=== PATIENT | female | born 1975 | race Caucasian/White ===

== ENCOUNTER 2019-07-02 17:57 | Inpatient (IN) | payer SELFPAY ==
[~2019-07-02] VITALS: Ht 162.6 cm; Wt 120.7 kg
[2019-07-02] VITALS (9 sets, daily range): BP systolic 77–134; BP diastolic 29–86
--- NOTE | ~2019-07-02 | HEMODYNAMI ---
PATIENT:THELMA CARLSON MEDICAL RECORD: [id number] : 75 LOCATION:D. D.2106 ADMISSION DATE: 07/02/19 Generatedon:07/16/201916:48 Patient name: THELMA CARLSON Patient #: [id number] SSN: D OB: 1975 Date of study: 07/16/2019 Page: Of Hemodynamic Procedure Report Patient Data Patient Demographics Procedure consent was obtained First Name: THELMA Gender: Female Last Name: ALDO : 1975 Patient #: [id number] Age: 43 year(s) Race: Unknown Additional ID: [id number] Contact details Address: [address] [place] [address] rd State: [place] City: [place] Zip code: [address] Past Medical History Allergies Allergen Reaction Date Comments Reported Morphine 07/16/2019 Other allergy 07/16/2019 amitriptyline Admission Admission Data Admission Date: 07/02/2019 Admission Time: 19:47 Room #: D.2106 Procedure Procedure Types Cath Procedure Peripheral Cath Diagnostic Procedure PICC PICC Line Replacement Procedure Description Procedure Date Procedure Date: 07/16/2019 Procedure Start Time: 16:39 Procedure End Time: 16:45 Procedure Staff Name Function Justyn Hernandez RT Scrub Floyd Lea MD Performing Physician Chelsea Wilson RN Nurse ANA CARR RT Monitor Procedure Data Cath Procedure Fluoroscopy Diagnostic fluoroscopy Total fluoroscopy Time: 0.4 time: 0.4 min min Diagnostic fluoroscopy Total fluoroscopy dose: 3 dose: 3 mGy mGy Hemodynamics Rest Pre Cath Intra NCS Post Cath Procedure Log Time Note 16:13:54 Use device set IR Diagnostic 16:13:56 Sterile Angiographic Pack opened to sterile field. 16:13:56 Bag Decanter (2001S) opened to sterile field. 16:13:57 Tegaderm 4 x 4 ([id number]) opened to sterile field. 16:18:03 Justyn Hernandez RT (R) (CV) sent for patient. Start room use. 16:18:04 Time tracking: Regular hours (M-F 7:00 - 5:00) 16:18:20 Patient received from Med II to IR Alert and oriented. Tansferred to table in Supine position. 16:18:22 Signed procedure consent form obtained from patient. 16:18:23 Warm blankets applied, and yogesh hugger turned on for patient comfort. 16:18:24 Correct patient and procedure confirmed by team. 16:18:25 - 16:18:32 H&P Date Dictated: 07/16/2019 Within 30 days and on chart.. 16:18:34 Pre-procedure instructions explained to patient. 16:18:35 Pre-op teaching completed and patient verbalized understanding. 16:18:52 Patient allergic to Morphine 16:19:14 Patient allergic to Other allergy amitriptyline 16:19:24 - 16:19:46 Right Arm area was prepped with chlora-prep and draped in sterile fashion 16:38:12 --------ALL STOP TIME OUT------ 16:38:14 Final Timeout: patient, procedure, and site verified with staff and physician. All members of the team are in agreement. 16:39:03 Full Disclosure recording started 16:39:03 Procedure started. 16:39:45 Local anesthetic to right subclavian vein with Lidocaine 1% by Floyd Lea MD.INITIAL ACCESS ONLY 16:41:34 PowerPICC 5Fr double lumen catheter opened to sterile field. 16:42:15 PICC line was trimmed to 42cm and advanced to the superior vena cava.Position verified under fluoroscopy. 16:44:28 Procedure ended.(Physican Out) 16:44:39 Fluoroscopy time 00.40 minutes. 16:44:43 Fluoroscopy dose: 3 mGy 16:44:43 Flurop Dose total: 3 16:45:09 Post-op/insertion site Right Axiliary dressed using PICC line dressing. 16:45:37 Procedure and supply charges have been captured, reviewed, submitted an d are correct. 16:45:45 Patient transfered to [facility] with Bed. 16:45:49 Full Disclosure recording stopped 16:45:49 Procedure ended. Device Usage Item Name Manufacture Quantity Catalog Hospital Part Current Minimal Lot# / Number Charge Number Stock Stock Serial# Code Bag Decanter Microtek 1 [id number] 5 () [employer] Sterile Cardinal 1 [id number] 5 Angiographic Health Pack Tegaderm 4 x 3M 1 [id number] 4 (1626W) PowerPICC Bard 1 [id number] 5 5Fr double lumen catheter Signature Audit [place] Stage Time Signature Unsigned Intra-Procedure 07/16/2019 ANA CARR RT 4:47:43 PM (R) [facility] [address] [place] [address]
[2019-07-02] MEDS ORDERED: HYDROCHLOROTHIA25 MG PO (18:00)
[2019-07-02] MEDS ORDERED: CARTIA XT120 MG PO (18:00)
[2019-07-02] MEDS ORDERED: ATIVAN1 MG PO (18:01)
[2019-07-02] MEDS ORDERED: PRINIVIL20 MG PO (18:01)
--- NOTE | 2019-07-02 18:27 | NUR ---
C/M WITH SVT, DR. OLVERA AT BEDSIDE, 12MG ADENOSINE RAPID IVP, PATIENT CONVERTED TO SR, THEN BACK TO SVT. 20MG CARDIAZEM GIVEN SLOW IVP, AFTER CARDIZEM ANOTHER 12MG ADENOSINE RAPID IVP, PATIENT CONVERTED TO SR, THEN BACK TO SVT. 20MG LABETELOL GIVEN IVP, PATIENT CONVERTED TO SR.
[2019-07-02 18:40] LABS: APTT 23.1 SECONDS (22.8-39.4); INR 1.18 (0.85-1.17); PROTIME 14.9 SECONDS (11.6-15.0)
[2019-07-02 18:50] LABS: HEMATOCRIT 51.4 % (36.0-48.0); HEMOGLOBIN 18.1 g/dL (12-16); MCH 29.4 pg (26.0-34.0); MCHC 35.2 g/dL (31.0-37.0); MCV 83.6 fL (80.0-100.0); MEAN PLATELET VOLUME 11.3 fL (7.4-10.4); PLATELET COUNT 304 10x3/uL (130-400); RBC 6.15 10x6/uL (4.00-5.40); RDW 13.4 % (11.5-14.5); WBC 23.1 10x3/uL (4.8-10.8)
[2019-07-02 19:06] LABS: D-DIMER-QUANTITATIVE 3.2 ug/mLFEU (0.20-0.54)
--- NOTE | 2019-07-02 19:09 | NUR ---
PT INTUABTED BY ROSAURA OLVERA, RESPIRATORY AT BEDSIDE.
[2019-07-02 19:27] LABS: EOSINOPHILS 7 % (0-7); LYMPHOCYTES 13 % (15-50); NEUTROPHILS 69 % (40-80); PLATELET ESTIMATE NORMAL
[2019-07-02 19:47] LABS: ALT (SGPT) 33 U/L (10-68); CALCIUM 9.4 mg/dL (8.5-10.1); CKMB 0.4 U/L (0.0-3.6); CREATINE KINASE 182 UL (21-215); CREATININE - SERUM 0.8 mg/dL (0.6-1.3); PRO BNP 274 pg/mL (0-125); UREA NITROGEN 16 mg/dL (7-18); eGFR NON AFRICAN AMERICAN 83 mL/min (90-120)
[2019-07-02 19:57] LABS: ALKALINE PHOSPHATASE 121 U/L (30-120); TROPONIN-I < 0.017 ng/mL (0.000-0.060)
[2019-07-02 19:59] LABS: BILIRUBIN - TOTAL 0.51 mg/dL (0.2-1.3); SODIUM 141 mmol/L (136-145)
[2019-07-02 20:00] LABS: CHLORIDE - SERUM 105 mmol/L (98-107); POTASSIUM - SERUM 2.8 mmol/L (3.5-5.1)
[2019-07-02 20:01] LABS: CALC OSMOLALITY 299 mosm/kg (275-300); GLUCOSE 422 mg/dL (74-106)
[2019-07-02 20:04] LABS: KETONE - SERUM MODERATE mg/dL (NEGATIVE)
--- NOTE | 2019-07-02 20:15 | NUR ---
CALLED REPORT TO RAJI
--- NOTE | 2019-07-02 20:33 | NUR ---
PT TRANSPORTED TO CT WITH RN AND RESPIRATORY PRESENT PRIOR TO TRANSPORT TO ICU
--- NOTE | 2019-07-02 20:45 | NUR ---
Pt received to room 2014. Pt is intubated and sedated. Bilat wrist restriants on patient. Pt moved to ICU bed and attached to monitors. O2% at this time is 66%, Dr Julian at bedside. Orders received.
--- NOTE | 2019-07-02 23:00 | NUR ---
Reassessment completed, see flowsheet for details. Pt is laying in bed intubated and sedated. No s/s of distress. Will continue to monitor.
[2019-07-03] VITALS (101 sets, daily range): BP systolic 68–120; BP diastolic 7–86; BMI 39.0; BMI 39.5
--- NOTE | 2019-07-03 01:00 | NUR ---
Pt is laying in bed intubated and sedated. Pt has had no acute changes at this time. Will continue to monitor.
[2019-07-03 01:32] LABS: ANION GAP 16.1 mmol/L (8-16); CALCIUM 7.7 mg/dL (8.5-10.1); CARBON DIOXIDE 20.2 mmol/L (21.0-32.0); POTASSIUM - SERUM 3.3 mmol/L (3.5-5.1)
--- NOTE | 2019-07-03 03:00 | NUR ---
Reassessment completed, see flowsheet for details. Pt is laying in bed intubated and sedated. No s/s of distress noted. Will continue to monitor.
--- NOTE | 2019-07-03 05:00 | NUR ---
Pt is laying in bed intubated and sedated. No acute changes noted. Will continue to monitor.
[2019-07-03 06:09] LABS: BASOPHILS 0.8 % (0-2); EOSINOPHILS 0.1 % (0-7); HEMATOCRIT 45.1 % (36.0-48.0); HEMOGLOBIN 16.1 g/dL (12-16); IMMATURE GRANULOCYTES 0.8 % (0-5); LYMPHOCYTES 13.1 % (15-50); MCH 29.4 pg (26.0-34.0); MCHC 35.7 g/dL (31.0-37.0); MCV 82.3 fL (80.0-100.0); MEAN PLATELET VOLUME 9.9 fL (7.4-10.4); MONOCYTES 5.2 % (2-11); PLATELET COUNT 260 10x3/uL (130-400); RBC 5.48 10x6/uL (4.00-5.40); RDW 13.2 % (11.5-14.5); WBC 19.8 10x3/uL (4.8-10.8)
[2019-07-03 06:42] LABS: ALBUMIN 2.1 g/dL (3.4-5.0); BILIRUBIN - TOTAL 0.32 mg/dL (0.2-1.3); CALCIUM 8.1 mg/dL (8.5-10.1); CARBON DIOXIDE 23.9 mmol/L (21.0-32.0); CREATININE - SERUM 1.2 mg/dL (0.6-1.3); PROTEIN - SERUM 6.4 g/dL (6.4-8.2); THYROID STIMULATING HORMONE 0.2 uIU/mL (0.36-3.74)
[2019-07-03 06:57] LABS: ANION GAP 12.9 mmol/L (8-16)
[2019-07-03 06:58] LABS: POTASSIUM - SERUM 2.8 mmol/L (3.5-5.1)
[2019-07-03 08:19] LABS: MAGNESIUM - SERUM 1.6 mg/dL (1.8-2.4)
[2019-07-03 08:21] LABS: PHOSPHOROUS 1.2 mg/dL (2.5-4.9)
[2019-07-03 09:13] LABS: KETONE - SERUM NEGATIVE (NEGATIVE)
[2019-07-03 09:15] LABS: CALC OSMOLALITY 287 mosm/kg (275-300); CALCIUM 7.8 mg/dL (8.5-10.1); CARBON DIOXIDE 24.1 mmol/L (21.0-32.0); CHLORIDE - SERUM 106 mmol/L (98-107); CREATININE - SERUM 1.3 mg/dL (0.6-1.3); GLUCOSE 145 mg/dL (74-106); POTASSIUM - SERUM 3.4 mmol/L (3.5-5.1); SODIUM 142 mmol/L (136-145); UREA NITROGEN 18 mg/dL (7-18); eGFR NON AFRICAN AMERICAN 47 mL/min (90-120)
--- NOTE | 2019-07-03 11:09 | NUR ---
PC FROM DR LOPEZ, ORDER GIVEN TO HAVE VASCULAR ACCESS NURSE PLACE PICC LINE, PC TO ARACELY RE: ORDER
[2019-07-03 12:46] LABS: ANION GAP 13.8 mmol/L (8-16); CALCIUM 8.1 mg/dL (8.5-10.1); CREATININE - SERUM 1.3 mg/dL (0.6-1.3); POTASSIUM - SERUM 3.8 mmol/L (3.5-5.1)
[2019-07-03 13:05] LABS: BILIRUBIN NEGATIVE (NEGATIVE); GLUCOSE 50 mg/dL (NEGATIVE); KETONE NEGATIVE (NEGATIVE); NITRITE NEGATIVE (NEGATIVE); SPECIFIC GRAVITY 1.015 (1.005-1.020)
[2019-07-03 13:07] LABS: AMORPHOUS SEDIMENT >1+ /lpf (NONE SEEN); EPITHELIAL CELLS OCC /hpf (0-5); GRANULAR CAST 0-5 /lpf (NONE SEEN); RED CELLS - URINE 0-5 /hpf (0-5); WHITE CELLS - URINE RARE /hpf (NEGATIVE)
[2019-07-03 13:08] LABS: BACTERIA MODERATE /hpf (NEGATIVE)
--- NOTE | 2019-07-03 16:36 | MORECARE ---
CASE MANAGEMENT DISCHARGE SUMMARY PATIENT: THELMA CARLSON UNIT: [id number] ADM DATE: 07/02/19 AGE: 43 : [birth year] SEX: F ROOM/BED: D.2314 AUTHOR: SUSU SALGADO PHYSICIAN: REFERRING PHYSICIAN: RISSA RUSSO MD DATE OF SERVICE: 07/03/19 Discharge Plan Patient Name: THELMA CARLSON Facility: [facility]:[place] : 1975 Planned Disposition: Anticipated Discharge Date: Discharge Date: Expected LOS: Initial Reviewer: [email or web address] Initial Review Date: 07/03/2019 Generated: 07/03/19 5:35 pm DCP- Discharge Planning Updated by [email or web address]: Samra Torrez on 07/03/19 3:[address] Patient Name: THELMA CARLSON Admission Status: ER Accout number: [id number] Admission Date: 07-02-2019 : 1975 Admission Diagnosis: Attending: RISSA CONNOLLY Current LOS: 1 Anticipated DC Date: Planned Disposition: Primary Insurance: UNINSURED DISCOUNT PLAN Discharge Planning Comments: CM MET WITH PATIENT'S ABE. PATIENT IS CURRENTLY ON A VENTILATOR. SPOUSE STATES UNSURE OF PLAN AT THIS TIME. STATES SHE HAS A HISTORY OF ASTHMA AND MAY NEED A NUBULIZER, STATES NO INSURANCE SO SHE MAY NEED HELP GETTING WHAT SHE NEEDS. HE STATED ABE FROM [facility] DATA MET WITH HIM TODAY ABOUT MEDICAID. CM TO FOLLOW AND ASSIST. Strip Tank Tender: Samra Torrez DCPIA - Discharge Planning Initial Assessment Updated by [email or web address]: Samra Torrez on 07/03/19 4:27 pm * PCP [facility] * Preadmission Environment Home with Family * ADLs Independent * List name and contact numbers for known caregivers / representatives who currently or will assist patient after discharge: ABE,, * Has this patient been hospitalized within the prior 30 days at any hospital? No Patient Name: THELMA CARLSON Page [id number] at 1636 All edits/amendments must be made on the electronic document DICTATION DATE: 07/03/19 1635 COMPUTATIONAL CHEMIST: GAVIN 07/03/19 1635 RPT#: [id number] DC DATE: STATUS: ADM IN [facility] [address] [place] [address] END OF REPORT
[2019-07-03 16:40] LABS: ANION GAP 14.7 mmol/L (8-16); CARBON DIOXIDE 21.8 mmol/L (21.0-32.0); CREATININE - SERUM 1.5 mg/dL (0.6-1.3); POTASSIUM - SERUM 4.5 mmol/L (3.5-5.1)
--- NOTE | 2019-07-03 19:00 | NUR ---
Report received from off going nurse. Pt is laying in bed intubated and sedated. Initial assessment completed, see flowsheet for details. No s/s of distress noted. Will continue to monitor.
--- NOTE | 2019-07-03 19:48 | NUR ---
0951: TITRATED FENTANYL UP 50 MCG/HR TO 300 AND VERSED UP 0.25 MG/HR TO 1.25 MG/HR FOR RR >24. 1037: DR TEJADA AT BEDSIDE. NEW ORDERS GIVEN AT THIS TIME. 1115: OGT PLACED. VERIFIED VIA ASCULTATION. WILL GET XR FOR OFFICAL VERIFICATION. 1144: REASSESSED TEMP AT 99.8 AFTER TYLENOL ADMINISTRATION. 1220: OGT LEAKED ONTO GOWN AND LINENS. BATH AND PARTIAL LINEN CHANGE COMPLETE AT THIS TIME. 1700: DR TEJADA AT BEDSIDE. NOTIFIED OF HR CONTINUED IN 190'S AFTER CARDIZEM GTT. 1731: ORDERS FOR [address] TEJADA. ALDO DOMINGUEZ NP FOR CARDIOLOGY AT BEDSIDE. PLACED PACER PADS ON PATIENT CHEST AND CRASH CART ON STANDBY IN ROOM. MEDICATION ADMINSITERED. CONVERTED TO NSR RATE AT 106.
--- NOTE | 2019-07-03 21:00 | NUR ---
Pt is laying in bed intubated and sedated. Pt repositioned for comfort. Oral care performed. No s/s of distress noted. Will continue to monitor.
[2019-07-03 21:38] LABS: ANION GAP 13.4 mmol/L (8-16); CARBON DIOXIDE 21.3 mmol/L (21.0-32.0); CREATININE - SERUM 1.8 mg/dL (0.6-1.3); POTASSIUM - SERUM 4.7 mmol/L (3.5-5.1)
--- NOTE | 2019-07-03 23:00 | NUR ---
Reassessment completed, see flowsheet for details. Pt is laying in bed intubated and sedated. Repositioned for comfort. Oral care performed. No s/s of distress noted. Will continue to monitor.
[2019-07-04] VITALS (96 sets, daily range): BP systolic 83–124; BP diastolic 51–82
--- NOTE | 2019-07-04 01:00 | NUR ---
Pt is laying in bed intubated and sedated. Repositioned for comfort. Oral care performed. No further needs noted. Will continue to monitor.
[2019-07-04 06:01] LABS: BASOPHILS 0.2 % (0-2); EOSINOPHILS 0 % (0-7); HEMATOCRIT 38.7 % (36.0-48.0); HEMOGLOBIN 13.4 g/dL (12-16); IMMATURE GRANULOCYTES 0.7 % (0-5); LYMPHOCYTES 11.8 % (15-50); MCH 29.2 pg (26.0-34.0); MCHC 34.6 g/dL (31.0-37.0); MEAN PLATELET VOLUME 10.5 fL (7.4-10.4); MONOCYTES 5.7 % (2-11); NEUTROPHILS 81.6 % (40-80); PLATELET COUNT 247 10x3/uL (130-400); RBC 4.59 10x6/uL (4.00-5.40); RDW 14.2 % (11.5-14.5); WBC 18.5 10x3/uL (4.8-10.8)
[2019-07-04 06:14] LABS: KETONE - SERUM NEGATIVE (NEGATIVE)
[2019-07-04 06:22] LABS: CALC OSMOLALITY 285 mosm/kg (275-300); CARBON DIOXIDE 21.8 mmol/L (21.0-32.0); CHLORIDE - SERUM 110 mmol/L (98-107); CREATININE - SERUM 2.2 mg/dL (0.6-1.3); GLUCOSE 120 mg/dL (74-106); MAGNESIUM - SERUM 1.6 mg/dL (1.8-2.4); POTASSIUM - SERUM 4.6 mmol/L (3.5-5.1); SODIUM 140 mmol/L (136-145); UREA NITROGEN 29 mg/dL (7-18); VANCOMYCIN - TROUGH 23.7 ug/mL (10.0-20.0); eGFR NON AFRICAN AMERICAN 26 mL/min (90-120)
[2019-07-04 06:35] LABS: MCV 84.3 fL (80.0-100.0)
[2019-07-04 06:53] LABS: PHOSPHOROUS 1.5 mg/dL (2.5-4.9)
--- NOTE | 2019-07-04 07:00 | NUR ---
PT RESTING IN BED, VSS AND WNL. ETT SECURED. NO SIGNS OF DISTRESS NOTED. BED ALARM ON. WILL CONT TO FOLLOW POC
--- NOTE | 2019-07-04 09:00 | NUR ---
PT RESTING IN BED, VSS AND WNL. ETT SECURED. BED ALARM ON. NO SIGNS OF DISTRESS NOTED. CALL LIGHT WITHIN REACH. FAMILY AT BEDSIDE. WILL CONT TO FOLLOW POC
--- NOTE | 2019-07-04 11:00 | NUR ---
PT RESTING IN BED, VSS AND WNL. ETT SECURED. BED ALARM ON. WILL CONT TO FOLLOW POC
--- NOTE | 2019-07-04 13:36 | NUR ---
HERE AND GAVE ORDERS TO STOP INSULIN GTT ONCE FIRST DOSE OF LANTUS IS GIVEN. PT RESTING IN BED, VSS AND WNL. ETT SECURED. NO SIGNS OF DISTRESS NOTED. FAMILY SITTING AT BEDSIDE. WILL CONT TO FOLLOW POC
[2019-07-04 14:18] LABS: ANION GAP 13.9 mmol/L (8-16); CALCIUM 7.5 mg/dL (8.5-10.1); CARBON DIOXIDE 19.7 mmol/L (21.0-32.0); CREATININE - SERUM 2.1 mg/dL (0.6-1.3); POTASSIUM - SERUM 4.6 mmol/L (3.5-5.1)
--- NOTE | 2019-07-04 15:02 | NUR ---
CGH BATH GIVEN AND FULL LINEN CHANGE PROVIDED. ETT SECURED. VSS AND WNL. NO SIGNS OF DISTRESS NOTED AT THIS TIME, CALL LIGHT WITHIN REACH. WILL CONT TO FOLLOW POC
--- NOTE | 2019-07-04 15:47 | NUR ---
DR GALDAMEZ ADJUSTED VENT TO /8/45% @1230
--- NOTE | 2019-07-04 16:08 | NUR ---
NOTIFIED THAT PT HAD 200ML URINE OUTPUT FOR SHIFT. NEW ORDERS RECIEVED TO OBTAIN CHEST XRAY IN AM, BNP IN THE AM, AND ONE TIME DOSE OF LASIX 20MG IV
[2019-07-04 17:07] LABS: ANION GAP 18.1 mmol/L (8-16); CALCIUM 7.3 mg/dL (8.5-10.1); CARBON DIOXIDE 17.3 mmol/L (21.0-32.0); CREATININE - SERUM 2.4 mg/dL (0.6-1.3)
[2019-07-04 17:08] LABS: POTASSIUM - SERUM 7.4 mmol/L (3.5-5.1)
--- NOTE | 2019-07-04 17:19 | NUR ---
LAB CALLED NURSE WITH K OF 7.4. NOTIFIED , PER , OBTIAN ATERIAL SAMPLE OF BLOOD AND SEND BACK FOR RETESTING.
--- NOTE | 2019-07-04 18:24 | NUR ---
PT RESTING IN BED, VSS AND WNL. ETT SECURED. NO SIGNS OF DISTRESS NOTED. BED ALARM ON. EDUARDO WRIST RESTRAINTS ON. WILL CONT TO FOLLOW POC
--- NOTE | 2019-07-04 19:00 | NUR ---
SHIFT ASSESSMENT COMPLETED. PT CARE ASSUMED. MONITORS ON AND WORKING, VITALS STABLE, SEE FLOW SHEET FOR FURTHER DETAILS. WILL CONTINUE TO OBSERVE.
--- NOTE | 2019-07-04 21:00 | NUR ---
PT TURNED AND REPOSITIONED FOR COMFORT. MONITORS ON AND WORKING, VITALS STABLE, WILL CONTINUE TO OBSERVE.
--- NOTE | 2019-07-04 23:00 | NUR ---
PT TURNED AND REPOSITIONED FOR COMFORT. MONITORS ON AND WORKING, VITALS STABLE. SEE FLOW SHEET FOR FURTHER DETAILS. WILL CONTINUE TO OBSERVE.
[2019-07-04 23:03] LABS: ANION GAP 20.4 mmol/L (8-16); CALCIUM 7.8 mg/dL (8.5-10.1); CARBON DIOXIDE 15.3 mmol/L (21.0-32.0); CREATININE - SERUM 2.9 mg/dL (0.6-1.3); POTASSIUM - SERUM 4.7 mmol/L (3.5-5.1)
[2019-07-05] VITALS (27 sets, daily range): BP systolic 90–182; BP diastolic 58–92
[2019-07-05 06:57] LABS: BASOPHILS 0.1 % (0-2); EOSINOPHILS 0 % (0-7); HEMATOCRIT 34.7 % (36.0-48.0); HEMOGLOBIN 11.7 g/dL (12-16); IMMATURE GRANULOCYTES 0.6 % (0-5); LYMPHOCYTES 10.8 % (15-50); MCH 28.7 pg (26.0-34.0); MCHC 33.7 g/dL (31.0-37.0); MEAN PLATELET VOLUME 10.7 fL (7.4-10.4); MONOCYTES 6.8 % (2-11); NEUTROPHILS 81.7 % (40-80); PLATELET COUNT 222 10x3/uL (130-400); RBC 4.08 10x6/uL (4.00-5.40); RDW 14.8 % (11.5-14.5)
--- NOTE | 2019-07-05 07:15 | NUR ---
PT RESTING IN BED, VSS AND WNL. ETT SECURED. BE CATHETER WITH NO LOOPS AND STAT LOCK IN PLACE. NO SIGNS OF DISTRESS NOTED. EDUARDO WRIST RESTRAINTS NOTED. WILL CONT TO FOLLOW POC
[2019-07-05 07:24] LABS: MAGNESIUM - SERUM 1.7 mg/dL (1.8-2.4); PRO BNP 1575 pg/mL (0-125); VANCOMYCIN - RANDOM 15.9 ug/mL (10.0-20.0)
[2019-07-05 07:25] LABS: PHOSPHOROUS 4.6 mg/dL (2.5-4.9)
[2019-07-05 07:27] LABS: KETONE - SERUM NEGATIVE (NEGATIVE)
--- NOTE | 2019-07-05 09:30 | NUR ---
PT RESTING IN BED, REPOSITIONED. NO SIGNS OF DISTRESS NOTED. ETT SECURED. WILL CONT TO FOLLOW POC
--- NOTE | 2019-07-05 11:30 | NUR ---
HERE AND TOLD NURSE TO D/C ISOLATION SINCE PT STARTED TAMIFLU ON 06/29/19. PT RESTING IN BED, VSS AND WNL. ETT SECURED, WILL CONT TO FOLLOW POC
--- NOTE | 2019-07-05 13:09 | NUR ---
Nutrition follow-up: Pt remains NPO Intubated, sedated Will be NPO per physician until glucose under better control; just off insulin drip. Labs reviewed Wt: 240# RDN following
--- NOTE | 2019-07-05 14:02 | NUR ---
DECREASED PEEP TO [address] DENICE CHAVEZ
--- NOTE | 2019-07-05 15:00 | NUR ---
PT RESTING IN BED, REPOSITIONED. CALL LIGHT WITHIN REACH. BED ALARM ON. ETT SECURED. WILL CONT TO FOLLOW POC
--- NOTE | 2019-07-05 17:00 | NUR ---
PT RESTING IN BED, VSS AND WNL. ETT SECURED. NO SIGNS OF DISTRESS NOTED. BED ALARM ON. WILL CONT TO FOLLOW POC
--- NOTE | 2019-07-05 19:00 | NUR ---
ASSESSMENT COMPLETED. CONT WITH ETT AND OGT TO LOW SUCTION. PT OPENS EYES ON OWN BUT NOT FOLLOWING COMMANDS. REPOSITIONED AND ORAL CARE PROVIDED Q 2 HOURS.
--- NOTE | 2019-07-05 21:00 | NUR ---
REPOSITIONED AND ORAL CARE PROVIDED. AT BEDSIDE. UPDATE GIVEN
--- NOTE | 2019-07-05 23:00 | NUR ---
RE-ASSESSMENT COMPLETED. NO CHANGES SINCE LAST ASSESSMENT. REPOSITIONED AND ORAL CARE PROVIDED
[2019-07-06] VITALS (23 sets, daily range): BP systolic 99–138; BP diastolic 70–99
--- NOTE | 2019-07-06 01:00 | NUR ---
REPOSITIONED AND ORAL CARE PROVIDED.
--- NOTE | 2019-07-06 03:00 | NUR ---
RE-ASSESSMENT COMPLETED. NO CHANGES SINCE LAST ASSESSMENT
--- NOTE | 2019-07-06 05:00 | NUR ---
REPOSITIONED AND ORAL CARE PROVIDED.
[2019-07-06 06:14] LABS: BASOPHILS 0.1 % (0-2); EOSINOPHILS 0 % (0-7); HEMATOCRIT 35.8 % (36.0-48.0); HEMOGLOBIN 12.2 g/dL (12-16); IMMATURE GRANULOCYTES 0.7 % (0-5); LYMPHOCYTES 8.7 % (15-50); MCHC 34.1 g/dL (31.0-37.0); MEAN PLATELET VOLUME 10.5 fL (7.4-10.4); MONOCYTES 7.4 % (2-11); NEUTROPHILS 83.1 % (40-80); PLATELET COUNT 233 10x3/uL (130-400); RBC 4.21 10x6/uL (4.00-5.40); RDW 14.8 % (11.5-14.5); WBC 17.8 10x3/uL (4.8-10.8)
[2019-07-06 06:31] LABS: ALBUMIN 1.7 g/dL (3.4-5.0); BILIRUBIN - TOTAL 0.58 mg/dL (0.2-1.3); CALCIUM 7.8 mg/dL (8.5-10.1); CARBON DIOXIDE 18.4 mmol/L (21.0-32.0); MAGNESIUM - SERUM 1.9 mg/dL (1.8-2.4); PHOSPHOROUS 4.7 mg/dL (2.5-4.9); POTASSIUM - SERUM 4.4 mmol/L (3.5-5.1); PROTEIN - SERUM 5.5 g/dL (6.4-8.2); VANCOMYCIN - RANDOM 14.4 ug/mL (10.0-20.0)
[2019-07-06 06:33] LABS: CREATININE - SERUM 3.7 mg/dL (0.6-1.3)
--- NOTE | 2019-07-06 16:21 | NUR ---
0700 ORAL AND FACIAL CARE PROVIDED OPENS EYES TO VOICE REMAINS ON VENT AC-22 FIO2-30% TV-400 PEEP-5 ETT 7.5 21 AT THE LIP ORAL SX AND ETT SX COMPLETE THIN WHIEW SPUTUM NOTED REPOSITIONED W TOTAL ASSIST
--- NOTE | 2019-07-06 16:32 | NUR ---
0900 RESTING QUITELY SPOUSE ARRIVED FOR VISIT AND HAS BEEN UPDATED
--- NOTE | 2019-07-06 16:37 | NUR ---
1100 FOLRY CARE ORAL SUCTION PROVIDED REPOSITIONED WITH ASSIST X 2
--- NOTE | 2019-07-06 16:41 | NUR ---
1200 DR GALDAMEZ AND DR TEJADA ROUNDING ON PT CBS CHANGED TI Q6 HOURS
--- NOTE | 2019-07-06 16:43 | NUR ---
1300 REPOSITIONED WITH 2 ASSIST OPENS TO TOUCH
--- NOTE | 2019-07-06 16:47 | NUR ---
1300 STARTED GLUCERNA 1.5 STARTED AT 20ML/HR TO OG TUBE PLACEMENT VERIFIED WITH ASPIRATION AND 10ML AIR BOLUS
--- NOTE | 2019-07-06 17:15 | NUR ---
1500 ASSIST X 2 REPOSITIONING PT OL LEFT SIDE ORAL AND ETT SX
--- NOTE | 2019-07-06 17:17 | NUR ---
1700 SPOUSE AT BEDSIDE UPDATED ON PATIENT CARE EXPLAINED TF VERBALIZED UNDERSTANDING
--- NOTE | 2019-07-06 19:00 | NUR ---
ASSESSMENT COMPLETED. OGT TO FEEDING. RESIDUAL 100 ML. PLACEMENT CHECKED. REPOSITIONED AND ORAL CARE PROVIDED. VENT CONT AT 30% FIO2. CVP 20
--- NOTE | 2019-07-06 21:00 | NUR ---
REPOSITIONED AND ORAL CARE PROVIDED.
--- NOTE | 2019-07-06 23:00 | NUR ---
RE-ASSESSMENT COMPLETED. NO CHANGES SINCE LAST ASSESSMENT
[2019-07-07] VITALS (24 sets, daily range): BP systolic 98–180; BP diastolic 65–133; Ht 162.6 cm; Wt 120.7 kg
--- NOTE | 2019-07-07 01:00 | NUR ---
REPOSITIONED AND ORAL CARE PROVIDED
--- NOTE | 2019-07-07 03:00 | NUR ---
REASSESSMENT COMPLETED. TUBE FEEDING INCREASED TO 30 ML/HR PER ORDERS. RESIDUAL AT 150ML
--- NOTE | 2019-07-07 05:00 | NUR ---
REPOSITIONED AND ORAL CARE PROVIDED. SEDATION VACATION GOING
[2019-07-07 06:33] LABS: HEMATOCRIT 36.2 % (36.0-48.0); HEMOGLOBIN 12.4 g/dL (12-16); MCH 28.9 pg (26.0-34.0); MCHC 34.3 g/dL (31.0-37.0); MCV 84.4 fL (80.0-100.0); MEAN PLATELET VOLUME 10.3 fL (7.4-10.4); PLATELET COUNT 270 10x3/uL (130-400); RBC 4.29 10x6/uL (4.00-5.40); RDW 14.3 % (11.5-14.5); WBC 16.4 10x3/uL (4.8-10.8)
[2019-07-07 06:54] LABS: ANION GAP 18.8 mmol/L (8-16); CALCIUM 8.1 mg/dL (8.5-10.1); CARBON DIOXIDE 19.1 mmol/L (21.0-32.0); CREATININE - SERUM 4.1 mg/dL (0.6-1.3); MAGNESIUM - SERUM 2.1 mg/dL (1.8-2.4); PHOSPHOROUS 5.1 mg/dL (2.5-4.9); POTASSIUM - SERUM 3.9 mmol/L (3.5-5.1); VANCOMYCIN - RANDOM 22.9 ug/mL (10.0-20.0)
[2019-07-07 07:20] LABS: BILIRUBIN NEGATIVE (NEGATIVE); GLUCOSE NEGATIVE (NEGATIVE); KETONE NEGATIVE (NEGATIVE); NITRITE NEGATIVE (NEGATIVE); UROBILINOGEN NORMAL (NORMAL)
[2019-07-07 07:21] LABS: BACTERIA MODERATE /hpf (NEGATIVE); EPITHELIAL CELLS 0-5 /hpf (0-5); RED CELLS - URINE >50 /hpf (0-5); WHITE CELLS - URINE 0-5 /hpf (NEGATIVE)
[2019-07-07 07:22] LABS: AMORPHOUS SEDIMENT >1+ /lpf (NONE SEEN)
[2019-07-07 08:18] LABS: LYMPHOCYTES 13 % (15-50); MONOCYTES 9 % (2-11); NEUTROPHILS 72 % (40-80); PLATELET ESTIMATE NORMAL
--- NOTE | 2019-07-07 09:05 | NUR ---
TRIED CPAP TRIAL ATTEMPTED BUT FAILED HR/BP/RR INCREASED
--- NOTE | 2019-07-07 11:11 | NUR ---
[id number] REPORT RECIEVED AND CARE ASSUMED OF PATIENT.. PT IS ORALLY INTUBATED AND SEDATED.. SEE FLOW SHEET FOR SHIFT ASSESMENT ...PICC LINE IN LEFT UPPER ARM SEE FLOW SHEET FOR FLUID TYPES AND RATES.. SOFT WRIST RESTRAINTS ON PT..
[2019-07-07 12:20] LABS: CALCIUM 8.2 mg/dL (8.5-10.1); CARBON DIOXIDE 17.7 mmol/L (21.0-32.0); CREATININE - SERUM 3.7 mg/dL (0.6-1.3); POTASSIUM - SERUM 3.7 mmol/L (3.5-5.1)
[2019-07-07 17:34] LABS: T4 THYROXIN - FREE 0.77 ng/dL (0.76-1.46); THYROID STIMULATING HORMONE 1.84 uIU/mL (0.36-3.74)
--- NOTE | 2019-07-07 18:00 | NUR ---
0830 AT BEDSIDE.. 0910 CPAP TRIAL 0920 CPAP TRIAL OVER.. PATIENT BP VIA TIARA INCREAASES TO 189/111 0930 MEDS GIVEN BS 141 LANTUS INSULIN GIVEN.. [address] GALDAMEZ IN TO SEE PT UPDATE IS GIVEN.. 1200 ULTRASOUND OF KIDNEY STEPPED OUT DURING PROCEDURE.. 1330 BACK AT BEDSIDE.. 1430 REPOSITIONED PT IS MUCH MORE AWAKE 1600 BOLUS FENTANYLL AND RATE INCREASE TO 200 MCG DONE PT AWAKE AND BP IS ELEVATED 1700 I AND O DONE MORE RESTFUL 1800 BS DONE
--- NOTE | 2019-07-07 19:00 | NUR ---
Report received from off going nurse. Pt is laying in bed. Pt is noted to have a very red face, temperture checked, normal temp. Monitor is showing a heart rate of 230 at this time, looks to be SVT, pt does have a history of SVT. Paged Dr Bond, orders received. Initial assessment completed, see flowsheet for details. Did not reposition pt at this time due to not wanting to stimulate her further. Will continue to monitor closely for changes and increasing heart rate.
--- NOTE | 2019-07-07 21:00 | NUR ---
Pt is resting in bed intubated and sedated. is at bedside. No s/s of distress noted. HR is still elevated in the 140's-160's. Will continue to monitor. Will page Dr Galvan regarding pt status.
--- NOTE | 2019-07-07 21:56 | NUR ---
EKG obtained, shows AFIB RVR. ST Marmolejo paged. Orders received.
--- NOTE | 2019-07-07 23:00 | NUR ---
Reassessment completed, see flowsheet for details. Pt is laying in bed intubated and sedated. Pt repositioned for comfort. Oral care performed. No s/s of distress. Will continue to monitor.
[2019-07-08] VITALS (27 sets, daily range): BP systolic 90–196; BP diastolic 70–118
--- NOTE | 2019-07-08 01:00 | NUR ---
Pt is resting in bed intubated and sedated. Repositioned for comfort. Oral care performed. No s/s of distress noted. Will continue to monitor.
--- NOTE | 2019-07-08 05:00 | NUR ---
PT is laying in bed intubated and sedated. NO s/s of distress noted. Will continue to monitor.
[2019-07-08 05:14] LABS: BASOPHILS 0.1 % (0-2); EOSINOPHILS 0.1 % (0-7); HEMATOCRIT 39.4 % (36.0-48.0); HEMOGLOBIN 13.9 g/dL (12-16); LYMPHOCYTES 12.1 % (15-50); MCH 29.6 pg (26.0-34.0); MCHC 35.3 g/dL (31.0-37.0); MEAN PLATELET VOLUME 10.4 fL (7.4-10.4); MONOCYTES 5.7 % (2-11); RBC 4.69 10x6/uL (4.00-5.40); RDW 13.9 % (11.5-14.5); WBC 18.8 10x3/uL (4.8-10.8)
[2019-07-08 05:30] LABS: PLATELET COUNT 353 10x3/uL (130-400)
[2019-07-08 05:47] LABS: PHOSPHOROUS 4.6 mg/dL (2.5-4.9)
--- NOTE | 2019-07-08 07:00 | NUR ---
PT RESTING IN BED, VSS AND WNL. ETT SECURED. NO SIGNS OF DISTRESS NOTED. BE CATHETER DRAINING VIA GRAVITY WITH NO LOOPS NOTED. BED ALARM ON. WILL CONT TO FOLLOW POC
[2019-07-08 07:14] LABS: ANION GAP 21.8 mmol/L (8-16); CALCIUM 8.2 mg/dL (8.5-10.1); CARBON DIOXIDE 16.6 mmol/L (21.0-32.0); CREATININE - SERUM 4.3 mg/dL (0.6-1.3); POTASSIUM - SERUM 3.4 mmol/L (3.5-5.1)
[2019-07-08 08:31] LABS: CREATININE - URINE 63.1 mg/dL (30-125); PRO/CRE RATIO URINE 0.8 mg/g; PROTEIN - URINE 52.6 mg/dL (0.0-11.9)
--- NOTE | 2019-07-08 09:00 | NUR ---
PT RESTING IN BED, VSS AND WNL. ETT SECURED. NO SIGNS OF DISTRESS NOTED. PT REPOSITIONED. BED ALARM ON. WILL CONT TO FOLLOW POC
--- NOTE | 2019-07-08 09:39 | NUR ---
Nutrition follow-up: Pt intubated, sedated Glucerna @ 30 ml/hr with goal rate of 40 ml/hr Labs reviewed Wt: 257# CPAP trials over the WE RDN following.
--- NOTE | 2019-07-08 11:00 | NUR ---
PT RESTING IN BED, VSS AND WNL. ETT SECURED. NO SIGNS OF DISTRESS NOTED. WILL CONT TO FOLLOW POC
--- NOTE | 2019-07-08 12:09 | CN ---
PATIENT NAME:THELMA DOMINGUEZ MEDICAL RECORD: [id number] : 75 LOCATION:EMILD.2314 ADMIT DATE: 07/02/19 ACCOUNT: [id number] CONSULTING PHYSICIAN: INDY DIAZ MD REFERRING PHYSICIAN: RISSA RUSSO MD DATE OF CONSULTATION: 07/03/2019 CARDIOLOGY CONSULTATION DIAGNOSES: 1. Tachycardia. 2. History of supraventricular tachycardia. 3. Pneumonia. 4. Diabetic ketoacidosis. 5. Diabetes. 6. Shortness of breath, dyspnea on exertion. HISTORY OF PRESENT ILLNESS: Mrs. Dominguez presented with shortness of breath, dyspnea on exertion, productive sputum, was found to have bilateral pneumonia as well as being in DKA. She was tachycardic to the 150s. She has a history of SVT, for which she is on propafenone. She then went up to the 180s. She received adenosine with no change in the rhythm, Cardizem with no change in the rhythm, cardioversion with no change in the rhythm. She remains at 180 with what appears to be a sinus tachycardia. She had no cardiac symptomatology prior to admission. REVIEW OF SYSTEMS: Obtained via the . PHYSICAL EXAMINATION: CONSTITUTIONAL/GENERAL APPEARANCE: Well nourished, well developed, appears stated age. The patient is sedated, intubated. EYES: Lids and conjunctivae noninjected. No discharge. No pallor. ENT: Lips within normal limit. No cyanosis. No pallor. NECK: Carotid arteries, bilateral normal upstroke. No bruits. No thrills. No jugular venous pressure or distention. CERVICAL LYMPH NODES: Nontender. Nonenlarged. THYROID: Not enlarged. No nodules. CARDIOVASCULAR: Precordial exam, nondisplaced. No heaves or pericardial thrills. Tachycardic, regular. Normal S1, normal S2. No S3, no gallop, no rub. Systolic murmur, not heard. Diastolic murmur, not heard. RESPIRATORY: Respiratory effort, unlabored. Normal curvature. No thoracic deformity. No chest wall tenderness. Percussion, resonant. Auscultation, clear. No wheezes, no rales, no rhonchi. ABDOMEN: Soft, nondistended, nontender. No abdominal pain, no vomiting and normal appetite. MUSCULOSKELETAL: No joint tenderness, normal gait, normal tone. SKIN: Warm and dry. OVERALL IMPRESSION: Tachycardia, what appears to be sinus tachycardia secondary to the physiologic stress from the pneumonia, DKA. At this time would not proceed with any further cardioversion. Get an echocardiogram. TRANSINT:[id number] Voice Confirmation ID: [id number] DOCUMENT ID: [id number] CONSULT REPORT [id number] THELMA DOMINGUEZ, INDY MCCLAIN at 1209 CC: [id number] DICTATION DATE: 07/03/19 0851 DREDGE DECKHAND: 07/03/19 1353 ADM IN [facility] [address] [place] [address]
--- NOTE | 2019-07-08 12:09 | EC ---
PATIENT:THELMA CARLSON DATE OF SERVICE: 07/02/19 SEX: F MEDICAL RECORD: [id number] DATE OF : [birth year] LOCATION:[facility] AGE OF PATIENT: 43 ADMISSION DATE: 07/02/19 REFERRING PHYSICIAN: INTERPRETING PHYSICIAN: INDY MENDEZ MD ECHOCARDIOGRAM REPORT ECHO CHARGES 4 ECHO COMPLETE Date: 07/03/19 CLINICAL DIAGNOSIS: SVT ECHOCARDIOGRAPHIC MEASUREMENTS (adult normal given) AC root (d.<3.7cm) cm LV Septum d (<1.2 cm> 1.2 cm Valve Excursion cm LV Septum (systole) 1.3 cm Left Atria (s.<4.0cm> cm LVPW d(<1.2cm) 1.3 cm RV (d.<2.3cm) 2.5 cm LVPW (sytole) 1.4 cm LV diastole(<5.6CM) 4.9 cm MV E-F(>70mm/sec) cm LV systole 4.0 cm LVOT Diameter cm MV exc.(>10mm) cm Est.ejection fraction (50-75%) % DOPPLER: LVIT cm/sec A cm/sec E cm/sec LA cm/sec RVSP 14 mmHg LVOT cm/sec AOP1/2T m/s Asc. Ao cm/sec RVOT cm/sec RA cm/sec PA cm/sec AV Gradient Peak mmHg AV Mean mmHg AV Area cm MV Gradient Peak mmHg MV Mean mmHg MV Area cm COMMENTS: Planning Manager: Ayden WATTERS Marine Diesel Technician: 1 Dr. Mendez TAPE# PACS Pericardial Effusion N DATE OF SERVICE: FINDINGS: 1. Left ventricular chamber size is mildly dilated. Left ventricular systolic function is markedly reduced at 20% to 25%. 2. Left atrium, right atrium, and right ventricular chamber sizes are dilated giving 4-chamber dilatation. 3. Valvular structures have normal structure and motion. 4. Doppler interrogation reveals no significant valvular insufficiency or stenosis. ECHOCARDIOGRAM REPORT [id number] THELMA CARLSON 5. No evidence of pericardial effusion or left ventricular thrombus. TRANSINT:[id number] Voice Confirmation ID: [id number] DOCUMENT ID: [id number] INDY MENDEZ MD at 1209 CC: [id number] DICTATION DATE: 07/04/19 1522 BAND TUMBLER: 07/04/19 1552 ADM IN [facility] [address] [facility] [place] [address]
--- NOTE | 2019-07-08 13:00 | NUR ---
PT RESTING IN BED, VSS AND WNL. ETT SECURED. NO SIGNS OF DISTRESS NOTED. BED ALARM ON. WILL CONT TO FOLLOW POC
--- NOTE | 2019-07-08 13:45 | NUR ---
PT BP HIGH WHILE AWAKE BUT THEN NORMALIZES WHEN ASLEEP. NOTIFIED . NO NEW ORDERS RECIEVED AT THIS TIME, WILL CONT TO FOLLOW POC
--- NOTE | 2019-07-08 15:00 | NUR ---
PT RESTING IN BED, RESP THERAPY PLACED PT ON CPAP TRIAL. PT SPOUSE AT BEDSIDE. NO SIGNS OF DISTRESS NOTED. WILL CONT TO FOLLOW POC
--- NOTE | 2019-07-08 16:50 | NUR ---
ONCE AGAIN NOTIFIED OF ELEVATED BP AND NEW ORDER RECIEVED TO START A CARDIZEM GTT AND D/C PO CARDIZEM
--- NOTE | 2019-07-08 17:32 | NUR ---
BED BATH GIVEN AND FULL LINEN CHANGE PROVIDED. VSS. ETT SECURED. OG TUBE IN PLACE. NO SIGNS OF DISTRESS NOTED AT THIS TIME, FAMILY AT BEDSIDE, WILL CONT TO FOLLOW POC
--- NOTE | 2019-07-08 18:00 | NUR ---
PAGERylie DICKEY DUE TO ELEVATED BP. NEW ORDER RECIEVED TO START CLONIDINE 0.2MG PRN FOR SBP>180.
--- NOTE | 2019-07-08 19:00 | NUR ---
Report received from off going nurse. Pt is laying in bed intubated and sedated. Pt will open eyes randomly and when stimulating her with noise/touch. Initial assessment completed, see flowsheet for details. Pt repositioned for comfort. Oral care performed. No s/s of distress noted. Will continue to monitor.
--- NOTE | 2019-07-08 21:00 | NUR ---
Pt is laying in bed intubated and sedated. Repositioned for comfort. Oral care performed. No further needs noted. No s/s of distress. Will continue to monitor.
--- NOTE | 2019-07-08 23:00 | NUR ---
Reassessment completed, see flowsheet for details. Pt is laying in bed intubated and sedated. Repositioned for comfort. Oral care peformed. No further needs noted. NO s/s of distress. Will continue to monitor.
[2019-07-09] VITALS (24 sets, daily range): BP systolic 86–189; BP diastolic 52–121
--- NOTE | 2019-07-09 00:31 | NUR ---
Pt suddenly went into SVT with a rate of 205. Dr Andrea mishra. Orders received to push 12 of Adenosine and if that is not effective to push 18 of Adenosine. This is due to pt being resistant to medications to reverse SVT. Pt was attached to external defibrillator, and YOLI Herrera and YOLI Townsend was present at bedside. 12 of Adenosine was pushed and pt immediately went back into SVT. 18 of Adenosine was pushed and pt came back to a Normal Sinus rhythm with a rate in the 70's. notified of changes.
--- NOTE | 2019-07-09 01:00 | NUR ---
Pt is laying in bed intubated and sedated. Repositioned for comfort. Oral care performed. No s/s of distress noted. Will continue to monitor.
--- NOTE | 2019-07-09 03:00 | NUR ---
Reassessment completed, see flowsheet for details. Pt is laying in bed intubated and sedated. Oral care performed. No s/s of distress. Will continue to monitor.
--- NOTE | 2019-07-09 05:00 | NUR ---
Pt is resting in bed intubated and sedated. Repositioned for comfort. Oral care performed. No s/s of distress noted. Will continue to monitor.
[2019-07-09 05:39] LABS: ANION GAP 16.6 mmol/L (8-16); CALCIUM 8.2 mg/dL (8.5-10.1); CARBON DIOXIDE 19.8 mmol/L (21.0-32.0); CREATININE - SERUM 4.3 mg/dL (0.6-1.3); PHOSPHOROUS 3.9 mg/dL (2.5-4.9); POTASSIUM - SERUM 3.4 mmol/L (3.5-5.1); VANCOMYCIN - RANDOM 24.2 ug/mL (10.0-20.0)
[2019-07-09 06:04] LABS: BASOPHILS 0.2 % (0-2); HEMATOCRIT 36.6 % (36.0-48.0); HEMOGLOBIN 12.5 g/dL (12-16); IMMATURE GRANULOCYTES 4.8 % (0-5); LYMPHOCYTES 18.6 % (15-50); MCH 28.7 pg (26.0-34.0); MCHC 34.2 g/dL (31.0-37.0); MCV 83.9 fL (80.0-100.0); MEAN PLATELET VOLUME 9.6 fL (7.4-10.4); MONOCYTES 4.2 % (2-11); NEUTROPHILS 71.2 % (40-80); PLATELET COUNT 311 10x3/uL (130-400); RBC 4.36 10x6/uL (4.00-5.40); RDW 14.2 % (11.5-14.5)
--- NOTE | 2019-07-09 07:52 | NUR ---
REPORT RECIEVED FROM THE OFF GOING RN. SEE ASSESSMENT IN THE PTS FLOW SHEET. PT SEDATED AND ON THE VENT. PT DOES HOWEVER OPEN EYES SPONTANOUSLY AND FOLLOWS COMMANDS. 7.5 ETT NOTED. SEE RT FOR VENT SETTINGS. OGT NOTED. PLACEMENTE CHECKED VIA A&A. PATENT WITH 60ML OF RESIDUAL. LEFT UPPER ARM PICC LINE. SEE IV FLUIDS FOR RATES. LEFT RADIAL TIARA NOTED WITH THE WRIST PROTECTOR ON. GOOD WAVE FORM. FC NOTED WITH SCANT AMOUNT OF YELLOW URINE. CALL LIGHT IN REACH. WILL CONT POC.
--- NOTE | 2019-07-09 08:19 | NUR ---
PT HTN. PRN CLONIDINE GIVEN. WILL REASSESS. ORAL CARE PROVIDED.
--- NOTE | 2019-07-09 09:18 | NUR ---
DR WYATT IN THE UNIT. TURN OFF VERSED, DECREASE FENTANYL TO 25MCG AND START CPAP. RT NOTIFIED.
--- NOTE | 2019-07-09 09:41 | NUR ---
RT CHANGED VENT TO SPONT MODE. PT DOING WELL SO FAR.
--- NOTE | 2019-07-09 11:36 | NUR ---
DR DIAZ PAGED DUE TO PERSISTANT HTN. SEE ORDERS.
--- NOTE | 2019-07-09 13:58 | NUR ---
PT HEARTS RATE [address] EMILY JERONIMO. GIVE 12 MG OF ADENOSIN NOW. DR ALEJO PAGERylie TO BE AT THE PTS BEDSIDE. WILL CONT POC.
--- NOTE | 2019-07-09 14:32 | NUR ---
ADENOSINE GIVEN WITH DR ALEJO AT THE PTS BEDSIDE. START CARDIZEM GTT PER DR ALEJO.
--- NOTE | 2019-07-09 17:26 | NUR ---
FULL BEDBATH GIVEN AND LINEN CHANGED GIVEN TO THE PT. PT WENT INTO AFIB RATE 180 FOR ABOUT 15 SECONDS AND SELF CONVERTED. CALL LIGHT IN REACH. WILL CONT POC.
--- NOTE | 2019-07-09 19:00 | NUR ---
Report received from off going nurse. PT is in bed intubated and sedated. Repositioned for comfort. Oral care performed. Initial assessment completed, see flowsheet for details. No further needs noted. No s/s of distress. Will continue to monitor.
--- NOTE | 2019-07-09 21:00 | NUR ---
Pt was incontinent of a large liquid BM. Regine care performed. Linen change completed. Oral care performed. No further needs noted at this time. Will continue to monitor.
--- NOTE | 2019-07-09 23:00 | NUR ---
Reassessment completed, see flowsheet for details. Pt repositioned for comfort. Oral care performed. No further needs noted at this time. No s/s of distress noted. Will continue to monitor.
[2019-07-10] VITALS (24 sets, daily range): BP systolic 108–172; BP diastolic 59–106
--- NOTE | 2019-07-10 01:00 | NUR ---
PT is resting in bed intubated and sedated. Pt repositioned for comfort. Oral care performed. No further needs noted at this time. NO s/s of distress. Will continue to monitor.
--- NOTE | 2019-07-10 03:00 | NUR ---
Reassessment completed, see flowsheet for details. Pt is laying in bed intubated and sedated. Repositioned for comfort. Oral care performed. No further needs noted. No s/s of distress. Will continue to monitor.
[2019-07-10 04:48] LABS: BASOPHILS 0.1 % (0-2); HEMATOCRIT 33.9 % (36.0-48.0); HEMOGLOBIN 11.5 g/dL (12-16); IMMATURE GRANULOCYTES 3.3 % (0-5); LYMPHOCYTES 6.7 % (15-50); MCH 28.5 pg (26.0-34.0); MCHC 33.9 g/dL (31.0-37.0); MCV 83.9 fL (80.0-100.0); MEAN PLATELET VOLUME 9.8 fL (7.4-10.4); MONOCYTES 8.2 % (2-11); NEUTROPHILS 80.7 % (40-80); PLATELET COUNT 275 10x3/uL (130-400); RBC 4.04 10x6/uL (4.00-5.40); RDW 14.2 % (11.5-14.5); WBC 15.3 10x3/uL (4.8-10.8)
--- NOTE | 2019-07-10 05:00 | NUR ---
Pt is laying in bed intubated and sedated. Repositioned for comfort. Oral care performed. No further needs noted. No s/s of distress. Will continue to monitor.
[2019-07-10 05:07] LABS: ANION GAP 16.1 mmol/L (8-16); CALCIUM 7.8 mg/dL (8.5-10.1); CARBON DIOXIDE 20.8 mmol/L (21.0-32.0); CREATININE - SERUM 3.8 mg/dL (0.6-1.3); PHOSPHOROUS 3.9 mg/dL (2.5-4.9); POTASSIUM - SERUM 3.9 mmol/L (3.5-5.1)
--- NOTE | 2019-07-10 07:00 | NUR ---
REPORT RECIEVED FROM THE OFF GOING RN. SEE ASSESSMENT IN THE PTS FLOW SHEET. PT ALREADY ON CPAP TRIALS DOING WELL. NSR ON THE MONITOR. 7.5 ETT NOTED. LEFT RADIAL TIARA NOTED WITH A GOOD WAVE FORM. WRIST PROTECTOR ON. LEFT UPPER PICC LINE NOTED AND PATENT. C/D/I. FC NOTED WITH SCANT AMOUNT OF SEDIMENT URINE. RECTAL TUBE NOTED WITH LIQUID BROWN STOOL. PT VSS. CALL LIGHT IN REACH. WILL CONT POC.
--- NOTE | 2019-07-10 10:13 | NUR ---
ABG OBTAINED PER DR WYATT. OK TO EXTUBATE. RT NOTIFIED AND EXTUBATED. PT PLACED ON 3L VIA NC. PT DOING WELL. RESTRAINTS REMOVED. CALL LIGHT IN REACH. WILL CONT POC.
--- NOTE | 2019-07-10 12:00 | NUR ---
TIARA DC'D WITH THE CATHETER TIP INTACT. DRESSING C/D/I NO HEMATOMA/BLEEDING NOTED. FULL CHD BATH GIVEN. FC CHANGED WITH IMMIDIATE CLEAR, YELLOW URINE RETURN. RECTAL TUBE DC'D PER ORDERS. PT TOLERATED THIS ALL WELL. WILL CONT POC.
--- NOTE | 2019-07-10 13:15 | NUR ---
Nutrition follow-up: Pt just extubated today NPO until seen by speech Labs reviewed Wt: 288# Will wait for speech recommendations for diet advancement. RDN following.
--- NOTE | 2019-07-10 16:00 | NUR ---
PT VSS. WILL ONT POC.
--- NOTE | 2019-07-10 17:30 | NUR ---
MEAL TRAY ORDERED FOR THE PT.
--- NOTE | 2019-07-10 19:00 | NUR ---
SHIFT ASSEESSMENT COMPLETED. PT CARE ASSUMED. MONITORS ON AND WORKING CALL LIGHT WITHIN REACH, SEE FLOW SHEET FOR FURTHER DETALS. WILL CONTINUE TO OBSERVE.
--- NOTE | 2019-07-10 21:00 | NUR ---
PT TURNED AND REPOSITIONED FOR COMFORT, MONITORS ON AND WORKING, VITALS STABLE, CALLL LIGHT WITHIN REACH, AT BEDSIDE, WILL CONTINUE TO OBSERVE.
--- NOTE | 2019-07-10 23:00 | NUR ---
PT TURNED AND REPOSITIONED FOR COMFORT MONITORS ON AND WORKING, VITALS STABLE. SEE FLOW SHEET FOR FURTHER DETAILS. WILL CONTINUE TO OBSERVE.
[2019-07-11] VITALS (21 sets, daily range): BP systolic 136–173; BP diastolic 82–118
--- NOTE | 2019-07-11 01:00 | NUR ---
PT LYING IN BED RESTING, MONITORS ON AND WORKING, VITALS STABLE. CALL LIGHT WITHIN REACH, WILL CONTINUE TO OBSERVE.
--- NOTE | 2019-07-11 03:00 | NUR ---
NO CHANGES, SEE FLOW SHEET FOR FURTHER DETAILS. WILL CONTINUE TO OBSERVE.
--- NOTE | 2019-07-11 05:00 | NUR ---
NO CHNAGES, AT BEDSIDE. MONITORS ON AND WORKING, VITALS STABLE, CALL LIGHT WITHIN REACH WILL CONTINUE TO OBSERV.E
[2019-07-11 06:05] LABS: BASOPHILS 0.1 % (0-2); EOSINOPHILS 0.8 % (0-7); HEMATOCRIT 35.4 % (36.0-48.0); HEMOGLOBIN 11.9 g/dL (12-16); IMMATURE GRANULOCYTES 1.7 % (0-5); LYMPHOCYTES 4.5 % (15-50); MCH 28.4 pg (26.0-34.0); MCHC 33.6 g/dL (31.0-37.0); MCV 84.5 fL (80.0-100.0); MEAN PLATELET VOLUME 10.2 fL (7.4-10.4); MONOCYTES 3.8 % (2-11); NEUTROPHILS 89.1 % (40-80); PLATELET COUNT 278 10x3/uL (130-400); RBC 4.19 10x6/uL (4.00-5.40); RDW 14.2 % (11.5-14.5); WBC 18.2 10x3/uL (4.8-10.8)
[2019-07-11 06:22] LABS: ANION GAP 15.7 mmol/L (8-16); CALCIUM 8.4 mg/dL (8.5-10.1); CREATININE - SERUM 3.7 mg/dL (0.6-1.3); POTASSIUM - SERUM 3.7 mmol/L (3.5-5.1); VANCOMYCIN - RANDOM 24.8 ug/mL (10.0-20.0)
[2019-07-11 06:23] LABS: PHOSPHOROUS 5.1 mg/dL (2.5-4.9)
--- NOTE | 2019-07-11 07:00 | NUR ---
REPORT RECEVIED FROM THE OFF GOING RN. SEE ASSESSMENT IN THE PTS FLOW SHEET. VSS. PT DENIES PAIN AT THIS TIME. CALL LIGHT IN REACH. WILL CONT POC.
--- NOTE | 2019-07-11 07:42 | NUR ---
DR LOPEZ AT THE PTS BEDSIDE. NO NEW ORDERS AT THIS TIME. WILL CONT POC.
--- NOTE | 2019-07-11 08:39 | NUR ---
FAMILY MEMBER BROUGHT THE PT A EGG MCMUFFIN FROM [employer]. IT WAS CUT INTO BIT SIZE PEICES. PT ATE IT WITH NO ISSUES. WILL CONT POC.
--- NOTE | 2019-07-11 12:13 | NUR ---
PT RESTING WITH NO ISSUES. VSS. PT JIHAN PAIN. CALL LIGHT IN REACH. WILL CONT POC.
--- NOTE | 2019-07-11 22:23 | NUR ---
PATIENT RESTING IN BED FAMILY AT BEDSIDE, NO COMPLAINTS, CALL LIGHT IN REACH, CPOC. VSS, IV IS LEFT PICC 1/2 NS W/ HCO3 @ 50.
[2019-07-12] VITALS (13 sets, daily range): BP systolic 136–168; BP diastolic 82–110
--- NOTE | 2019-07-12 02:21 | NUR ---
PATIENT IN BED EYES CLOSED RESPIRATIONS EVEN AND UNLABORED.
--- NOTE | 2019-07-12 07:30 | NUR ---
BLOOD COLLECTED AND SET TO THE LAB
[2019-07-12 07:58] LABS: BASOPHILS 0.1 % (0-2); EOSINOPHILS 0.7 % (0-7); HEMOGLOBIN 12.3 g/dL (12-16); LYMPHOCYTES 5.8 % (15-50); MCH 28.7 pg (26.0-34.0); MCHC 34.2 g/dL (31.0-37.0); MCV 83.9 fL (80.0-100.0); MEAN PLATELET VOLUME 9.9 fL (7.4-10.4); MONOCYTES 6.1 % (2-11); NEUTROPHILS 86.3 % (40-80); PLATELET COUNT 309 10x3/uL (130-400); RBC 4.29 10x6/uL (4.00-5.40); RDW 13.8 % (11.5-14.5); WBC 18.6 10x3/uL (4.8-10.8)
--- NOTE | 2019-07-12 09:36 | NUR ---
PT REQUESTED A BED BOTELLO. PT HAD A LOOSE STOOL. PT CLEANED AND LINENS CHANGE. PT TOLERATED WELL. WILL CONT POC.
--- NOTE | 2019-07-12 10:45 | NUR ---
PHSICAL THERAPY ASSISTED WITH THE PT OOB AND INTO HIS BEDSIDE CHAIR. PT VERY WEAK. PT TOLERATED WELL. WILL CONT POC.
[2019-07-12 12:17] LABS: ANION GAP 16.6 mmol/L (8-16); CALCIUM 8.6 mg/dL (8.5-10.1); CARBON DIOXIDE 21.6 mmol/L (21.0-32.0); CREATININE - SERUM 3.8 mg/dL (0.6-1.3); POTASSIUM - SERUM 3.2 mmol/L (3.5-5.1); VANCOMYCIN - RANDOM 18.8 ug/mL (10.0-20.0)
--- NOTE | 2019-07-12 12:35 | NUR ---
NUTRITION F/U PT UP TO CHAIR FOR LUNCH. VISITOR AT BEDSIDE. TOLERATING [facility] SOFT ADA DIET BUT INTAKE POOR AT THIS TIME. WILL CONTINUE TO PROVIDE DIET, MONITOR INTAKE. RD FOLLOWING
--- NOTE | 2019-07-12 16:00 | NUR ---
PT ASSISTED BACK INTO BED WITH THE ASSISTANCE OF PHYSICAL THEARPY. PT TOLERATED WELL. WILL ONT POC.
--- NOTE | 2019-07-12 18:45 | NUR ---
SHIFT REPORT DONE AT BEDSIDE. PT IS LAYING IN BED WATCHING TV. A&OX4. [place] SHELBY[employer] NOTIED AND DRAINING AND SECURE. PT C/O OF PAIN "ALL OVER MY BODY". AND REQUESTED IF SHE COULD HAVE SOEMTHING FOR PAIN. I VERABLIZED I WOULD LOOK TO SEE IF SHE DOES HAVE ANYTHING ORDERED FOR PAIN AND IF NOT I WILL CALL THE DOCTOR. PT VERABLIZED "THANK YOU". NO OTHER COMPLAINTS WERE VOICED AT THIS TIME. I WILL PERFORM MY FULL ASSESSMENT AND DOCUMENT. BED IS LOW,SIDE RAILSX2,CALL LIGHT WITHIN REACH. VITAL SIGNS STABLE. WILL CONITNUE TO MONITOR
--- NOTE | 2019-07-12 19:28 | NUR ---
CALLED TO LET PT C/O OF PAIN ALL OVER AND HAS ASKED FOR SOMETHIG FOR PAIN. T.O TO GIVE NORCO 5/325 PO Q4H PRN FOR PAIN. T.O READ BACK CORRECT.
--- NOTE | 2019-07-12 20:45 | NUR ---
CHANGED PT PICC LINE DRESSING WHILE KEEPING STERILE TECHNIQUE. DRESSSING WAS SOILED AND NOT SECURE TO SKIN. THERE ARE NO S/S OF INFECTION OR INFILTRATION. PT TOLERATED WELL WITH NO C/O. I FLUSHED ALL 3 PORTS C NS 10ML WITHOUT RESISTANCE. PT PAIN AT THIS TIME IS 3/10 NUMERIC SCALE. HUSBABND IS AT BEDSIDE. PT VOICES NO OTHER NEEDS AT THIS TIME. VITAL SIGNS ARE STABLE. BED IS LOW SIDE RAILSX2, CALL LIGHT WITHIN REACH. WILL CONTINUE TO MONITOR.
--- NOTE | 2019-07-12 22:52 | NUR ---
PT IS RESTING IN BED WITH EYES CLOSED. VITAL SIGNS ARE STABLE. BED IS LOW,SIDE RAISLX2,CALL LIGHT WIHTIN REACH. WILL CONTINUE TO MONITOR
--- NOTE | 2019-07-13 00:57 | NUR ---
PT USES CALL LIGHT TO ASK IF SHE CAN HAVE ANOTHER PAIN PILL. I VOICED THAT I BELIVE IT IS TIME TO HAVE ANOTHER ONE. I CHECK MAR AND IT IS TIME. I ASKED PT WHERE SHE WAS HURTING AND SHE VOCALIZED "ALL OVER, BUT MY LEFT FOOT IS THROBBING". I VOICED WHERE AT ON HER FOOT AND SHE VOICED"THE WHOLE FOOT". WHEN ASSESSING THERE IS NO REDNESS OR PROMINENT SWELLING COMPARED TO HER OTHER FOOT. PULSES ARE STRONG BUT HER FOOT IS TENDER TO THE TOUCH. I WILL CONTINUE TO MONITOR THIS. WILL GIVE PAIN MEDICATION ORDERED AND DOCUMENT ON MAR. VITAL SIGNS ARE STABLE. I ALSO TURNED PT TO HER LEFT SIDE AT THIS TIME FOR COMFORT. NO OTHER NEEDS VOICED. BED IS LOW,SIDE RAILSX2,CALL LIGHT WITHIN REACH. WILL CONTINUE TO MONITOR
--- NOTE | 2019-07-13 02:51 | NUR ---
PT IS RESTING IN BED WITH EYES CLOSED. VITAL SIGNS ARE STABLE. BED IS LOW,SIDE RAILSX2,CALL LIGHT WITHIN REACH. WILL CONTINUE TO MONITOR
[2019-07-13 03:00] VITALS: BP 142/80
--- NOTE | 2019-07-13 03:42 | NUR ---
WHEN GOING TO CHECK ON PT SHE VOICED SHE HAD TRIED USING HER CALL LIGHT. WHEN CHECKING TO SEE IF IT WORKS IT WAS NOT. IT HAD BEEN WORKING BEFORE THIS. AFTER TRYING MANY THINGS THE CALL LIGTH STILL DID NOT WORKING EVEN AFTER REPLASING WITH A DIFFERENT CALL LIGHT AND CORD. DUE TO THIS WE MOVED PT TO A DIFFERENT ROOM 2307 SO THAT SHE IS ABLE TO USE THE CALL LIGHT WHEN NEEDED. ALL PT BELONGING WERE ALSO TRANSPORTED TO HER NEW ROOM.
--- NOTE | 2019-07-13 05:00 | NUR ---
PT IS RESTING IN BED WITH EYES CLOSED. VITAL SIGNS ARE STABLE. BED IS LOW,SIDE RAILSX2,CALL LIGHT WITIN REACH. WILL CONTINUE TO MONITOR
--- NOTE | 2019-07-13 05:28 | NUR ---
GAVE REPORT TO ELYSE SALMERON AT THIS TIME
--- NOTE | 2019-07-13 05:58 | NUR ---
TRANSPORTED PT IN STABLE CONDITION TO ROOM 2106 WITH ALL BELONGINGS.
--- NOTE | 2019-07-13 06:15 | NUR ---
RECIEVED TO FLOOR ACCOMPANIED BY STAFF. A&O X 4. REPORTS MODERATE WEAKNESS. ROLLS WITH ASSIST ONTO BEDPAN. BE IN PLACE. DENIES PAIN. LABORED BREATHING NOTED, PT REPORTS THIS IS NORMALO. NO O2 IN USE. PT DOES REQUEST BREATHING TREATMENT SOON FOR SOB AFTER BEDCHANGE. NO FURTHER NEEDS NOTED, WILL CONTINUE TO MONITOR.
--- NOTE | 2019-07-13 07:00 | NUR ---
RECEIVED REPORT. ASSUMED CARE OF PATIENT. PATIENT SITTING UP IN BED, ALERT/ORIENTED. CALL LIGHT WITHIN REACH. RESP EVEN AND UNLABOERED. PATIENT DENIES ANY NEEDS AT THIS TIME. PATIENT RECENTLY TRANSFERRED TO THIS UNIT FROM ICU. NO DISTRESS.
[2019-07-13 08:00] VITALS: BP 148/96
[2019-07-13 08:38] LABS: HEMATOCRIT 35.9 % (36.0-48.0); HEMOGLOBIN 12.2 g/dL (12-16); MCH 28.6 pg (26.0-34.0); MCV 84.1 fL (80.0-100.0); MEAN PLATELET VOLUME 9.8 fL (7.4-10.4); PLATELET COUNT 306 10x3/uL (130-400); RBC 4.27 10x6/uL (4.00-5.40); RDW 13.8 % (11.5-14.5); WBC 20.5 10x3/uL (4.8-10.8)
[2019-07-13 08:55] LABS: LYMPHOCYTES 4 % (15-50); MONOCYTES 5 % (2-11); NEUTROPHILS 90 % (40-80); PLATELET ESTIMATE NORMAL
[2019-07-13 09:00] LABS: ANION GAP 12.4 mmol/L (8-16); CALCIUM 8.2 mg/dL (8.5-10.1); CARBON DIOXIDE 24.7 mmol/L (21.0-32.0); CREATININE - SERUM 3.6 mg/dL (0.6-1.3); PHOSPHOROUS 4.9 mg/dL (2.5-4.9); POTASSIUM - SERUM 3.1 mmol/L (3.5-5.1); VANCOMYCIN - RANDOM 13.6 ug/mL (10.0-20.0)
--- NOTE | 2019-07-13 11:27 | NUR ---
FSBS 149. NO INSULIN COVERAGE PER SLIDING SCALE.
[2019-07-13 11:34] VITALS: BP 180/97
--- NOTE | 2019-07-13 12:27 | NUR ---
RECEIVED ORDERS FOR PHYSICAL THERAPY AND NURSE TO GET PATIENT OOB WITH MEAL. PHYSICAL THERAPY UNABLE TO GET PATIENT OOB DUE TO PATIENTS LEGS ARE BUCKELING WHEN SHE STANDS UP, NURSING IS UNABLE TO GET PATIENT OOB TO CHAIR FOR MEAL SAFELY!
[2019-07-13 15:51] VITALS: BP 160/88
--- NOTE | 2019-07-13 15:55 | NUR ---
PATIENT COMPLAIN OF SORE AREA TO LEFT UPPER ARM. RAW AREA NOTED TO LEFT UPPER ARM NEAR CREASE. AREA CLEANSE WITH NS AND MEPILEX APPLIED TO PROTECT AREA.
--- NOTE | 2019-07-13 17:46 | NUR ---
FSBS 202. 12 UNITS ADMINISTERED PER SLIDING SCALE.
--- NOTE | 2019-07-13 17:59 | NUR ---
RESTING IN BED. PATIENT CONSUMING FOOD BROUGHT INTO HOSPITAL FROM OUTSIDE. CALL LIGHT WITHIN REACH. NO DISTRESS. DENIES NEEDS AT THIS TIME.
[2019-07-13 19:00] VITALS: BP 142/86
--- NOTE | 2019-07-13 20:12 | NUR ---
RECEIVED UP IN BED WITHY SOUSE AT BEDSIDE. ALERT AND ORIENTED X4. REMAINS IN BEDFAST. O2@ 2 LITERS PER N/C. PICC LINE TO LEFT UPPER ARM. F/C INTACT WITH YELLOW URINE DRAINING TO BEDSIDE DRAINAGE BAG. TELEMETRY IN PLACE.RASH UNDER BREAT AND ABD FOLD. HAS GENERALIZED EDEMA TO ALL EXTREMITIES. DENIES ANY NEEDS AT THIS TIME.
[2019-07-14] VITALS: BP 154/90
[2019-07-14 04:00] VITALS: BP 176/95
--- NOTE | 2019-07-14 07:00 | NUR ---
RECEIVED REPORT. ASSUMED CARE OF PATIENT. CALL LIGHT WITHIN REACH. NO DISTRESS. SITTING UP IN BED, RESP EVEN AND UNLABORED.
--- NOTE | 2019-07-14 07:30 | NUR ---
MEDICATED FOR HYPERTENSION AT THIS TIME, 206/100.
[2019-07-14 08:03] VITALS: BP 206/100
--- NOTE | 2019-07-14 09:39 | NUR ---
BP 162/80, 75 - FOLLOW UP AFTER HYDRALAZINE ADMINISTRATION ORAL ROUTE.
[2019-07-14 10:04] LABS: BASOPHILS 0.1 % (0-2); EOSINOPHILS 1.1 % (0-7); HEMATOCRIT 34.5 % (36.0-48.0); HEMOGLOBIN 11.5 g/dL (12-16); IMMATURE GRANULOCYTES 0.3 % (0-5); LYMPHOCYTES 4.6 % (15-50); MCH 28.7 pg (26.0-34.0); MCHC 33.3 g/dL (31.0-37.0); MEAN PLATELET VOLUME 9.9 fL (7.4-10.4); MONOCYTES 5.9 % (2-11); PLATELET COUNT 271 10x3/uL (130-400); RBC 4.01 10x6/uL (4.00-5.40); RDW 14.1 % (11.5-14.5); WBC 18.8 10x3/uL (4.8-10.8)
[2019-07-14 10:13] LABS: ANION GAP 15.7 mmol/L (8-16); BILIRUBIN - TOTAL 0.51 mg/dL (0.2-1.3); CALCIUM 8.6 mg/dL (8.5-10.1); CARBON DIOXIDE 22.9 mmol/L (21.0-32.0); CREATININE - SERUM 3.4 mg/dL (0.6-1.3); PHOSPHOROUS 5.1 mg/dL (2.5-4.9); PROTEIN - SERUM 5.7 g/dL (6.4-8.2)
[2019-07-14 10:14] LABS: POTASSIUM - SERUM 3.6 mmol/L (3.5-5.1)
--- NOTE | 2019-07-14 11:23 | NUR ---
FSBS 107. NO INSULIN ADMINISTERED PER SLIDING SCALE.
[2019-07-14 12:22] VITALS: BP 151/96
--- NOTE | 2019-07-14 12:52 | NUR ---
MEDICATED FOR NAUSEA AT THIS TIME. NO DISTRESS. ONLY 3 BITES OF FOOD CONSUMED PRIOR TO BECOMING NAUSEATED.
--- NOTE | 2019-07-14 15:46 | NUR ---
ADJUSTED COMFORT LEVEL OF BED X 2 AND PATIENT NOW REQUEST THAT BED BE TURNED OFF BECAUSE IT FEELS BETTER TO HER. WILL LEAVE BED OFF AT THIS TIME AND REINFLATE BED IN 30 MINUTES.
[2019-07-14 15:55] VITALS: BP 177/93
--- NOTE | 2019-07-14 17:12 | NUR ---
FSBS 119. NO INSULIN PER SLIDING SCALE.
--- NOTE | 2019-07-14 18:01 | NUR ---
COMPLETE BED BATH AND LINEN CHANGE COMPLETED. NO DISTRESS.
--- NOTE | 2019-07-14 19:11 | NUR ---
RECEIVED UP IN BED WITH EYES CLOSED. SPOUSE AT BEDSIDE. EASILY AROUSES WITH VERBAL STIMULI. O2 @ 2 LITERS PER N/C. PICC TO LEFT UPPER ARM. F/C IN PLACE WITH CLEAR YELLOW URINE DRAINING TO BEDSIDE DRAINAGE BAG. TELEMETRY IN PLACE. CONT. TO HAVE REASH UNDER BREAST AND ABDOMINAL FOLD. DENIES ANY PAIN OR NEEDS AT THIS TIME.
[2019-07-14 20:30] VITALS: BP 154/86
[2019-07-15 00:30] VITALS: BP 156/88
[2019-07-15 04:30] VITALS: BP 135/70
[2019-07-15 05:53] LABS: HEMATOCRIT 33.6 % (36.0-48.0); MCH 28.4 pg (26.0-34.0); MCHC 32.7 g/dL (31.0-37.0); MCV 86.6 fL (80.0-100.0); MEAN PLATELET VOLUME 9.5 fL (7.4-10.4); PLATELET COUNT 236 10x3/uL (130-400); RBC 3.88 10x6/uL (4.00-5.40); RDW 14.2 % (11.5-14.5); WBC 21.8 10x3/uL (4.8-10.8)
[2019-07-15 06:14] LABS: ALBUMIN 1.8 g/dL (3.4-5.0); ANION GAP 12.9 mmol/L (8-16); BILIRUBIN - TOTAL 0.43 mg/dL (0.2-1.3); CALCIUM 8.2 mg/dL (8.5-10.1); CARBON DIOXIDE 24.9 mmol/L (21.0-32.0); CREATININE - SERUM 3.2 mg/dL (0.6-1.3); POTASSIUM - SERUM 3.8 mmol/L (3.5-5.1); PROTEIN - SERUM 5.3 g/dL (6.4-8.2); VANCOMYCIN - RANDOM 22.5 ug/mL (10.0-20.0)
[2019-07-15 08:38] VITALS: BP 146/77
[2019-07-15 09:06] LABS: LYMPHOCYTES 9 % (15-50); MONOCYTES 8 % (2-11); NEUTROPHILS 78 % (40-80); PLATELET ESTIMATE NORMAL
--- NOTE | 2019-07-15 11:04 | NUR ---
PT A/O X4. VSS. MEDICATION HELD FOR PROCEDURE. PT LEFT VIA [facility]. BED LOW CALL LIGHT WITHIN REACH. WILL CONTINUE TO MONITOR.
--- NOTE | 2019-07-15 14:58 | NUR ---
OT NOTE: WENT BACK TO EDUCATE PT ON EXS TO BE PERFORMED IN BED. PT WITH SIGNFICANT WEAKNESS IN DORSI FLEXION OF L FOOT. ALSO NOTED INCREASED WEAKNESS IN L KNEE FLEX. INSTRUCTED PT ON UE AND LE EXS TO PERFORM IN BED TO ASSIST WITH STRENGTHENING AND MOBILITY. ASHLEY BE, OTR/L [phone]
--- NOTE | 2019-07-15 17:13 | MORECARE ---
CASE MANAGEMENT DISCHARGE SUMMARY PATIENT: THELMA CARLSON UNIT: [id number] ADM DATE: 07/02/19 AGE: 43 : 75 SEX: F ROOM/BED: D.2106 AUTHOR: SUSU SALGADO PHYSICIAN: REFERRING PHYSICIAN: RISSA RUSSO MD DATE OF SERVICE: 07/15/19 Discharge Plan Patient Name: THELMA CARLSON Facility: [facility]:[place] : 1975 Planned Disposition: Home with Home Health Anticipated Discharge Date: Discharge Date: Expected LOS: Initial Reviewer: [email or web address] Initial Review Date: 07/03/2019 Generated: 07/15/19 6:12 pm DCP- Discharge Planning Updated by [id number]: Samra Torrez on 07/03/19 3:[address] Patient Name: THELMA CARLSON Admission Status: ER Accout number: [id number] Admission Date: 07-02-2019 : 1975 Admission Diagnosis: Attending: RISSA CONNOLLY Current LOS: 1 Anticipated DC Date: Planned Disposition: Primary Insurance: UNINSURED DISCOUNT PLAN Discharge Planning Comments: CM MET WITH PATIENT'S ABE. PATIENT IS CURRENTLY ON A VENTILATOR. SPOUSE STATES UNSURE OF PLAN AT THIS TIME. STATES SHE HAS A HISTORY OF ASTHMA AND MAY NEED A NUBULIZER, STATES NO INSURANCE SO SHE MAY NEED HELP GETTING WHAT SHE NEEDS. HE STATED ABE FROM [facility] DATA MET WITH HIM TODAY ABOUT MEDICAID. CM TO FOLLOW AND ASSIST. Panel Fitter: Samra Torrez DCPIA - Discharge Planning Initial Assessment Updated by [id number]: Samra Torrez on 07/03/19 4:27 pm * PCP CONVENIENT [facility]ARE * Preadmission Environment Home with Family * ADLs Independent * List name and contact numbers for known caregivers / representatives who currently or will assist patient after discharge: ABE,, * Has this patient been hospitalized within the prior 30 days at any hospital? No Last DP export: 07/03/19 3:36 pm Patient Name: THELMA CARLSON Page [phone] at 1713 All edits/amendments must be made on the electronic document DICTATION DATE: 07/15/191711 CAP LINING MACHINE OPERATOR: GAVIN 07/15/191711 RPT#: [id number] DC DATE: STATUS: ADM IN [facility] [address] [place] [address] END OF REPORT
[2019-07-15 17:20] VITALS: BP 146/79
--- NOTE | 2019-07-15 17:23 | MORECARE ---
CASE MANAGEMENT DISCHARGE SUMMARY PATIENT: THELMA CARLSON UNIT: [id number] ADM DATE: 07/02/19 AGE: 43 : 75 SEX: F ROOM/BED: D.2108 AUTHOR: DAMIAN,DOC PHYSICIAN: REFERRING PHYSICIAN: RISSA RUSSO MD DATE OF SERVICE: 07/15/19 Discharge Plan Patient Name: THELMA CARLSON Facility: [facility]:[place] : 1975 Planned Disposition: Home with Home Health Anticipated Discharge Date: Discharge Date: Expected LOS: Initial Reviewer: [email or web address] Initial Review Date: 07/03/2019 Generated: 07/15/19 6:22 pm Comments DCP- Discharge Planning Updated by [id number]: Joseph Gonzalez on 07/15/19 4:[address] Patient Name: THELMA CARLOSN Encounter No: [id number] : 1975 Primary Insurance: UNINSURED DISCOUNT PLAN Anticipated DC Date: Planned Disposition: Home with Home Health External Planned Provider: TO BE DETERMINED DCP follow-up note: CM MET WITH PT AND SPOUSE IN ROOM TO DISCUSS DISCHARGE NEEDS AND PLANNING. PT GAVE PERMISSION TO DISCUSS HER PLANNING AND CARE WITH SPOUSE. CM DISCUSSED AVAILABILITY OF HOME HEALTH, REHAB SERVICES AND MEDICAL EQUIPMENT. PT HAS NO INSURANCE, SPOUSE REPORTS THEY ARE OVER INCOME FOR MEDICAID. PT WAS WORKING PRIOR TO GETTING SICK. PT DOES NOT WANT TO GO TO [facility] IN [place], EVEN IF MEDICAID PAID FOR IT. PT WOULD PREFER TO GO HOME WITH HOME HEALTH. PT'S SPOUSE REPORTS PT WILL NEED IV ANTIBIOTICS, ASKED IF HOME HEALTH AND INFUSION COMPANY WOULD WORK OUT PAYMENT PLAN. CHOICE SIGNED FOR ANY HOME HEALTH COMPANY AND INFUSION COMPANY, WITH REFUSAL OF NURSING FACILITY. SPOUSE PLANS TO TRANSPORT HOME AT DISCHARGE. PT STATES SHE WAS ABLE TO STAND WITH THERAPY TODAY AND IS PROGRESSING. PT NOW ON 4 1/2 LITERS OXYGEN. PT'S SPOUSE REPORTS HE CAN HAVE A FRIEND STAY WITH PT WHEN HE IS AT WORK TO ENSURE PT HAS 24 HOUR CARE AT HOME. THEY HAVE PURCHASED A WHEELCHAIR, ROLLATOR WALKER AND BEDSIDE COMMODE FOR HOME USE. PT REFUSED CORRECTION FACILITY PLACEMENT. PT WANTS TO GO HOME WITH HOME HEALTH AND HOME INFUSION, SPOUSE WOULD LIKE PRICES AND TO KNOW IF PAYMENT PLANS WOULD BE AVAILABLE. CM TO CALL AND ASK HOME HEALTH SOON POSSIBLE REGARDING OPTIONS. Joseph Gonzalez, CASE MANAGEMENT DCP- Discharge Planning Updated by [id number]: Samra Lore on 07/03/19 3:[address] Patient Name: THELMA CARLSON Admission Status: ER Accout number: [id number] Admission Date: 07-02-2019 : 1975 Admission Diagnosis: Attending: RISSA CONNOLLY Current LOS: 1 Anticipated DC Date: Planned Disposition: Primary Insurance: UNINSURED DISCOUNT PLAN Discharge Planning Comments: CM MET WITH PATIENT'S ABE. PATIENT IS CURRENTLY ON A VENTILATOR. SPOUSE STATES UNSURE OF PLAN AT THIS TIME. STATES SHE HAS A HISTORY OF ASTHMA AND MAY NEED A NUBULIZER, STATES NO INSURANCE SO SHE MAY NEED HELP GETTING WHAT SHE NEEDS. HE STATED ABE FROM [facility] DATA MET WITH HIM TODAY ABOUT MEDICAID. CM TO FOLLOW AND ASSIST. Java Developer With Security Clearance: Samra Torrez DCPIA - Discharge Planning Initial Assessment Updated by [id number]: Samracarl Torrez on 07/03/19 4:27 pm * PCP CONVENIENT CARE * Preadmission Environment Home with Family * ADLs Independent * List name and contact numbers for known caregivers / representatives who currently or will assist patient after discharge: ABE,, * Has this patient been hospitalized within the prior 30 days at any hospital? No Coverage Notice Reviewer: [id number] - Joseph Gonzalez Notice Issued Date-Time: 07/15/2019 16:35 Notice Type: Patient Choice Letter Notice Delivered To: Patient Relationship to Patient: Tacking Machine Operator Name: Delivery Method: HAND - Hand Delivered Alyx Days: Prior Verbal Notification: Recipient Understood Notice: Yes Recipient Signature: Yes Med Rec Note Co-signed by Attending: Coverage Notice Comment: NO HOME HEALTH PREFERENCE NO INFUSION COMPANY PREFERENCE REFUSAL OF [place] PLACEMENT Last DP export: 07/15/19 4:13 p Patient Name: THELMA CARLSON Page [phone] at 1723 All edits/amendments must be made on the electronic document DICTATION DATE: 07/15/191721 DOUBLE BACKER: GAVIN 07/15/191721 RPT#: [id number] DC DATE: STATUS: ADM IN [facility] [address] [place] [address] END OF REPORT
--- NOTE | 2019-07-15 18:39 | NUR ---
PT R UPPER PIC DRESSING CHANGED. CATHETER OUT 5 INCHES. JARON JESSICA CONSULTED. INSTRUCTED TO RE-DRESS. PICC PATENT AND DRWS BLOOD. WILL CONTINUE TO MONITOR.
--- NOTE | 2019-07-15 19:11 | NUR ---
EVENING ROUNDS COMPLETE. PT SITTING UP IN BED. FAMILY AT BEDSIDE. NO SIGNS OF DISTRESS. PT DENIES ANY PAIN OR NEEDS AT THIS TIME. CL IN REACH, BED IN LOWEST POSITION.
--- NOTE | 2019-07-15 19:36 | NUR ---
PT STATES SHE IS HAVING A DIFFICULT TIME BREATHING. PT IS NOTED TO BE WHEEZING WITH EXHALE. O2 SAT AT 91% ON 6L OF OXYGEN. RT IN ROOM WITH THIS NURSE, BUMPED O2 UP TO 8L. PAGED DR GALDAMEZ.
--- NOTE | 2019-07-15 19:40 | NUR ---
DR GALDAMEZ RETURNED PAGE. STAT ABG, XRAY AND BIPAP PRN ORDRED AT THIS TIME.
[2019-07-15 20:00] VITALS: BP 160/80
[2019-07-16] VITALS: BP 151/91
[2019-07-16 04:00] VITALS: BP 181/90
[2019-07-16 06:11] LABS: BASOPHILS 0.1 % (0-2); EOSINOPHILS 0.1 % (0-7); HEMATOCRIT 35.2 % (36.0-48.0); HEMOGLOBIN 11.6 g/dL (12-16); IMMATURE GRANULOCYTES 0.2 % (0-5); MCH 28.2 pg (26.0-34.0); MCV 85.6 fL (80.0-100.0); MEAN PLATELET VOLUME 9.4 fL (7.4-10.4); MONOCYTES 0.7 % (2-11); NEUTROPHILS 95.9 % (40-80); PLATELET COUNT 229 10x3/uL (130-400); RBC 4.11 10x6/uL (4.00-5.40); RDW 13.6 % (11.5-14.5); WBC 17.7 10x3/uL (4.8-10.8)
[2019-07-16 06:43] LABS: BILIRUBIN - TOTAL 0.77 mg/dL (0.2-1.3); CALCIUM 8.3 mg/dL (8.5-10.1); CARBON DIOXIDE 27.2 mmol/L (21.0-32.0); CREATININE - SERUM 3.3 mg/dL (0.6-1.3); MAGNESIUM - SERUM 2.1 mg/dL (1.8-2.4); PHOSPHOROUS 5.8 mg/dL (2.5-4.9); POTASSIUM - SERUM 4.2 mmol/L (3.5-5.1); PROTEIN - SERUM 5.7 g/dL (6.4-8.2); VANCOMYCIN - RANDOM 17.9 ug/mL (10.0-20.0)
--- NOTE | 2019-07-16 07:38 | NUR ---
REPORT RECIEVED. PT SITTING SEMI FOWLERS IN BED. SHE HAS A L UPPER ARM PICC THAT IS SL. RR EVEN AND UNLABORED ON 8L NC. BED LOCKED AND IN LOWEST POSITION, CALL LIGHT WITHIN REACH. WILL CTM
--- NOTE | 2019-07-16 07:45 | NUR ---
WAS TOLD BY WHEAT GROWER THAT PTS PICC LINE WAS HANGING OUT 5IN AND THAT ARACELY WAS CONSULTED YESTERDAY AND NURSE WAS TOLD THAT IT FLUSHES AND PULLS FINE AND TO REDRESS AND THAT IT WOULD BE FINE. PICC LINE LOOKS TO BE MORE THAN 5 IN OUT BUT DOES FLUSH AND DRAW FINE. WILL CTM
[2019-07-16 09:08] VITALS: BP 163/91
--- NOTE | 2019-07-16 10:08 | NUR ---
OT NOTE: PT REPORTED THAT SHE HAD TO BE PLACED ON BIPAP LAST NIGHT.. STATED THAT SHE THINKS THAT SHE OVER DID IT WITH THE EXERCISES PROVIDED. ASSISTED PT UP TO EOB WITH MAX ASSIST. STATIC SITTING BALANCE IS GOOD; FAIR/FAIR- DYNAMIC SITTING BALANCE. PT SOB WITH LITTLE TO NO EXERTION. VERY WEAK.. REQUIRES APPROX 3-4 MIN REST BREAK AFTER BRINGING HANDS TO WALKER DUE TO UE WEAKNESS. PT CONT WITH FOOT DROP ON L SIDE. STILL UNABLE TO DORSI FLEX L FOOT. PT ABLE TO SUPPORT SELF IN STANDING WITH MIN ASSIST X 2 AND USE OF WALKER. ONLY ABLE TO TOLERATE APPROX 15-20 SECS IN STANDING. 02 FLUCTUATES BETWEEN 85 AND 93 WITH 02 AT 6L. PT STILL UNABLE TO TRANSFER DUE TO INABILITY TO STAY IN STANDING FOR GREATER THAN 15 SEC AND UNABLE TO ADVANCE FEET TO STEP TO CHAIR. DIFFICULTY PERFORMING SIMPLE GROOMING TASKS DUE TO INABILITY TO HOLD HANDS TO FACE OR OVERHEAD. WILL RETURN IN PM FOR MONITORED EXS. ASHLEY BE, OTR/L [phone]
--- NOTE | 2019-07-16 10:31 | MORECARE ---
CASE MANAGEMENT DISCHARGE SUMMARY PATIENT: THELMA CARLSON UNIT: [id number] ADM DATE: 07/02/19 AGE: 43 : 75 SEX: F ROOM/BED: D.8416 AUTHOR: DAMIAN,DOC PHYSICIAN: REFERRING PHYSICIAN: RISSA RUSSO MD DATE OF SERVICE: 07/16/19 Discharge Plan Patient Name: THELMA CARLSON Facility: [facility]:[place] : 1975 Planned Disposition: Home with Home Health Anticipated Discharge Date: Discharge Date: Expected LOS: Initial Reviewer: [id number] Initial Review Date: 07/03/2019 Generated: 07/16/19 11:31 am Comments DCP- Discharge Planning Updated by [id number]: Kane Bland on 07/16/19 9:[address] Patient Name: THELMA CARLSON Encounter No: [id number] : 1975 Primary Insurance: UNINSURED DISCOUNT PLAN Anticipated DC Date: Planned Disposition: Home with Home Health External Planned Provider: TO BE DETERMINED DCP follow-up note: CM ASKED ELIZABETH BABB OF [facility] IF SHE HAS A SKILLED FACILITY THAT MIGHT CONSIDER PT FOR LAKESHA CARE. EILZABETH ADVISED THAT SHE DOES NOT AND THAT THEY WOULD NOT DO IV NAFCILLIN. CM ASKED EFRAIN OF [facility] IF SHE HAS A SKILLED FACILITY THAT MIGHT CONSIDER PT FOR LAKESHA CARE, SHE REPLIED THAT IT WOULD BE A "LONGSHOT" BUT SHE WILL CHECK. CM SPOKE TO PALOMA OF [employer] [facility], RICH OF [facility] AND KO OF [facility], ASKING IF ANY OF THEM WOULD CONSIDER PT FOR [facility] INFUSION MANAGEMENT AND PHYSICAL THERAPY. ALL WILL CHECK AND LET CM KNOW. CM CALLED AND SPOKE TO [employer], , OBTAINED QUOTE FOR NAFCILLIN 2GM, Q4 HOURS: $173.31 PER DAY, IT WOULD NEED PUMP AND HOME HEALTH. PT WOULD BE REQUIRED TO MAKE FIRST PAYMENT ON PAYMENT PLAN. CM CALLED [facility], , SPOKE TO SWETA WHO WILL WORK UP QUOTE AND CALL CM BACK. CM CONTINUES TO WORK ON POSSIBLE DISCHARGE OPTIONS. KANE BLAND, CASE MANAGEMENT Kane Bland DCP- Discharge Planning Updated by [id number]: Kane Bland on 07/15/19 4:[address] Patient Name: THELMA CARLSON Encounter No: [id number] : 1975 Primary Insurance: UNINSURED DISCOUNT PLAN Anticipated DC Date: Planned Disposition: Home with Home Health External Planned Provider: TO BE DETERMINED DCP follow-up note: CM MET WITH PT AND SPOUSE IN ROOM TO DISCUSS DISCHARGE NEEDS AND PLANNING. PT GAVE PERMISSION TO DISCUSS HER PLANNING AND CARE WITH SPOUSE. CM DISCUSSED AVAILABILITY OF HOME HEALTH, REHAB SERVICES AND MEDICAL EQUIPMENT. PT HAS NO INSURANCE, SPOUSE REPORTS THEY ARE OVER INCOME FOR MEDICAID. PT WAS WORKING PRIOR TO GETTING SICK. PT DOES NOT WANT TO GO TO SKILLED NURSING CARE IN SNF, EVEN IF MEDICAID PAID FOR IT. PT WOULD PREFER TO GO HOME WITH HOME HEALTH. PT'S SPOUSE REPORTS PT WILL NEED IV ANTIBIOTICS, ASKED IF HOME HEALTH AND INFUSION COMPANY WOULD WORK OUT PAYMENT PLAN. CHOICE SIGNED FOR ANY HOME HEALTH COMPANY AND INFUSION COMPANY, WITH REFUSAL OF NURSING FACILITY. SPOUSE PLANS TO TRANSPORT HOME AT DISCHARGE. PT STATES SHE WAS ABLE TO STAND WITH THERAPY TODAY AND IS PROGRESSING. PT NOW ON 4 1/2 LITERS OXYGEN. PT'S SPOUSE REPORTS HE CAN HAVE A FRIEND STAY WITH PT WHEN HE IS AT WORK TO ENSURE PT HAS 24 HOUR CARE AT HOME. THEY HAVE PURCHASED A WHEELCHAIR, ROLLATOR WALKER AND BEDSIDE COMMODE FOR HOME USE. PT REFUSED GROUP HOME FACILITY PLACEMENT. PT WANTS TO GO HOME WITH HOME HEALTH AND HOME INFUSION, SPOUSE WOULD LIKE PRICES AND TO KNOW IF PAYMENT PLANS WOULD BE AVAILABLE. CM TO CALL AND ASK HOME HEALTH SOON POSSIBLE REGARDING OPTIONS. Kane Bland, CASE MANAGEMENT DCP- Discharge Planning Updated by [id number]: Samra Torrez on 07/03/19 3:[address] Patient Name: THELMA CARLSON Admission Status: ER Accout number: [id number] Admission Date: 07-02-2019 : 1975 Admission Diagnosis: Attending: RISSA CONNOLLY Current LOS: 1 Anticipated DC Date: Planned Disposition: Primary Insurance: UNINSURED DISCOUNT PLAN Discharge Planning Comments: CM MET WITH PATIENT'S ABE. PATIENT IS CURRENTLY ON A VENTILATOR. SPOUSE STATES UNSURE OF PLAN AT THIS TIME. STATES SHE HAS A HISTORY OF ASTHMA AND MAY NEED A NUBULIZER, STATES NO INSURANCE SO SHE MAY NEED HELP GETTING WHAT SHE NEEDS. HE STATED ABE FROM [employer] MET WITH HIM TODAY ABOUT MEDICAID. CM TO FOLLOW AND ASSIST. Compressed Gas Equipment Mechanic: Samra Torrez DCPIA - Discharge Planning Initial Assessment Updated by [id number]: Samra Torrez on 07/03/19 4:27 pm * PCP CONVENIENT CARE * Preadmission Environment Home with Family * ADLs Independent * List name and contact numbers for known caregivers / representatives who currently or will assist patient after discharge: ABE,, * Has this patient been hospitalized within the prior 30 days at any hospital? No Coverage Notice Reviewer: [id number] Loren Bland Notice Issued Date-Time: 07/15/2019 16:35 Notice Type: Patient Choice Letter Notice Delivered To: Patient Relationship to Patient: Truck Chauffeur Name: Delivery Method: HAND - Hand Delivered Alyx Days: Prior Verbal Notification: Recipient Understood Notice: Yes Recipient Signature: Yes Med Rec Note Co-signed by Attending: Coverage Notice Comment: NO HOME HEALTH PREFERENCE NO INFUSION COMPANY PREFERENCE REFUSAL OF SNF PLACEMENT Last DP export: 07/15/19 4:23 p Patient Name: THELMA CARLSON Page [phone] at 1031 All edits/amendments must be made on the electronic document DICTATION DATE: 07/16/19 1031 CANVAS WORKER APPRENTICE: GAVIN 07/16/19 1031 RPT#: [id number] DC DATE: STATUS: ADM IN [facility] [address] [place] [address] END OF REPORT
--- NOTE | 2019-07-16 13:34 | NUR ---
Nutrition Follow-up: Pt reports poor appetite; states SOB is a factor. Drinking Glucerna PRN. Noted GES done; consistent with gastric dyskinesis. Diet: Diabetic, Mech Soft PO intake: 49% avg x 7 meals Wt: 291# (07/13); 230.3# (07/03) Last BM: 07/16 Labs noted: K+ 4.2, Glu 173, Ca 8.3, PO4 5.8, Alb 2.0 Meds noted: Humulin, Pepcid, Lantus, Zofran -Monitor PO4; may consider renal diabetic diet if remains elevated. -Discussed small, frequent meals for gastroparesis. -Monitor wt. -RD following.
--- NOTE | 2019-07-16 14:28 | NUR ---
SPOKE TO ANUJ ABOUT PICC LINE HANGING OUT. SHE GAVE ME ORDERS TO HAVE AN US OF THE L ARM AND TO CONSULT IR FOR EITHER ANOTHER PICC LINE PLACED OR TO FIX THE ONE THAT IS PLACED. SPOKE TO DORINDA IN IR AND SHE STATED SHE WOULD LOOK INTO THIS FOR ME. WILL CTM
--- NOTE | 2019-07-16 15:40 | NUR ---
PT SIGNED CONSENT TO HAVE A NEW PICC LINE PLACED, DUE TO THE CURRENT ONE COMMING OUT. WILL CTM
--- NOTE | 2019-07-16 16:11 | MORECARE ---
CASE MANAGEMENT DISCHARGE SUMMARY PATIENT: THELMA CARLSON UNIT: [id number] ADM DATE: 07/02/19 AGE: 43 : 75 SEX: F ROOM/BED: D.1028 AUTHOR: DAMIAN,DOC PHYSICIAN: REFERRING PHYSICIAN: RISSA RUSSO MD DATE OF SERVICE: 07/16/19 Discharge Plan Patient Name: THELMA CARLSON Facility: [facility]:[place] : 1975 Planned Disposition: Home with Home Health Anticipated Discharge Date: Discharge Date: Expected LOS: Initial Reviewer: [id number] Initial Review Date: 07/03/2019 Generated: 07/16/19 5:10 pm Comments DCP- Discharge Planning Updated by [id number]: Kane Bland on 07/16/19 9:[address] Patient Name: THELMA CARLSON Encounter No: [id number] : 1975 Primary Insurance: UNINSURED DISCOUNT PLAN Anticipated DC Date: Planned Disposition: Home with Home Health External Planned Provider: TO BE DETERMINED DCP follow-up note: CM ASKED ELIZABETH BABB OF [facility] IF SHE HAS A SKILLED FACILITY THAT MIGHT CONSIDER PT FOR LAKESHA CARE. ELIZABETH ADVISED THAT SHE DOES NOT AND THAT THEY WOULD NOT DO IV NAFCILLIN. CM ASKED EFRAIN OF [facility] IF SHE HAS A SKILLED FACILITY THAT MIGHT CONSIDER PT FOR LAKESHA CARE, SHE REPLIED THAT IT WOULD BE A "LONGSHOT" BUT SHE WILL CHECK. CM SPOKE TO PALOMA OF [employer] [facility], [facility] AND KO OF [facility], ASKING IF ANY OF THEM WOULD CONSIDER PT FOR [facility] INFUSION MANAGEMENT AND PHYSICAL THERAPY. ALL WILL CHECK AND LET CM KNOW. CM CALLED AND SPOKE TO [employer], , OBTAINED QUOTE FOR NAFCILLIN 2GM, Q4 HOURS: $173.31 PER DAY, IT WOULD NEED PUMP AND HOME HEALTH. PT WOULD BE REQUIRED TO MAKE FIRST PAYMENT ON PAYMENT PLAN. CM CALLED [facility], , SPOKE TO SWETA WHO WILL WORK UP QUOTE AND CALL CM BACK. CM CONTINUES TO WORK ON POSSIBLE DISCHARGE OPTIONS. KANE BLAND, CASE MANAGEMENT Kane Bland DCP- Discharge Planning Updated by [id number]: Kane Bland on 07/15/19 4:[address] Patient Name: THELMA CARLSON Encounter No: [id number] : 1975 Primary Insurance: UNINSURED DISCOUNT PLAN Anticipated DC Date: Planned Disposition: Home with Home Health External Planned Provider: TO BE DETERMINED DCP follow-up note: CM MET WITH PT AND SPOUSE IN ROOM TO DISCUSS DISCHARGE NEEDS AND PLANNING. PT GAVE PERMISSION TO DISCUSS HER PLANNING AND CARE WITH SPOUSE. CM DISCUSSED AVAILABILITY OF HOME HEALTH, REHAB SERVICES AND MEDICAL EQUIPMENT. PT HAS NO INSURANCE, SPOUSE REPORTS THEY ARE OVER INCOME FOR MEDICAID. PT WAS WORKING PRIOR TO GETTING SICK. PT DOES NOT WANT TO GO TO [facility] [place], EVEN IF MEDICAID PAID FOR IT. PT WOULD PREFER TO GO HOME WITH HOME HEALTH. PT'S SPOUSE REPORTS PT WILL NEED IV ANTIBIOTICS, ASKED IF HOME HEALTH AND INFUSION COMPANY WOULD WORK OUT PAYMENT PLAN. CHOICE SIGNED FOR ANY HOME HEALTH COMPANY AND INFUSION COMPANY, WITH REFUSAL OF NURSING FACILITY. SPOUSE PLANS TO TRANSPORT HOME AT DISCHARGE. PT STATES SHE WAS ABLE TO STAND WITH THERAPY TODAY AND IS PROGRESSING. PT NOW ON 4 1/2 LITERS OXYGEN. PT'S SPOUSE REPORTS HE CAN HAVE A FRIEND STAY WITH PT WHEN HE IS AT WORK TO ENSURE PT HAS 24 HOUR CARE AT HOME. THEY HAVE PURCHASED A WHEELCHAIR, ROLLATOR WALKER AND BEDSIDE COMMODE FOR HOME USE. PT REFUSED CARE HOME FACILITY PLACEMENT. PT WANTS TO GO HOME WITH HOME HEALTH AND HOME INFUSION, SPOUSE WOULD LIKE PRICES AND TO KNOW IF PAYMENT PLANS WOULD BE AVAILABLE. CM TO CALL AND ASK HOME HEALTH SOON POSSIBLE REGARDING OPTIONS. Kane Bland, CASE MANAGEMENT DCP- Discharge Planning Updated by [email or web address]: Samra Torrez on 07/03/19 3:[address] Patient Name: THELMA CARLSON Admission Status: ER Accout number: [id number] Admission Date: 07-02-2019 : 1975 Admission Diagnosis: Attending: RISSA CONNOLLY Current LOS: 1 Anticipated DC Date: Planned Disposition: Primary Insurance: UNINSURED DISCOUNT PLAN Discharge Planning Comments: CM MET WITH PATIENT'S ABE. PATIENT IS CURRENTLY ON A VENTILATOR. SPOUSE STATES UNSURE OF PLAN AT THIS TIME. STATES SHE HAS A HISTORY OF ASTHMA AND MAY NEED A NUBULIZER, STATES NO INSURANCE SO SHE MAY NEED HELP GETTING WHAT SHE NEEDS. HE STATED ABE FROM [employer] MET WITH HIM TODAY ABOUT MEDICAID. CM TO FOLLOW AND ASSIST. Bench Jeweler: Samra Torrez DCPIA - Discharge Planning Initial Assessment Updated by [id number]: Samra Torrez on 07/03/19 4:27 pm * PCP CONVENIENT CARE * Preadmission Environment Home with Family * ADLs Independent * List name and contact numbers for known caregivers / representatives who currently or will assist patient after discharge: ABE,, * Has this patient been hospitalized within the prior 30 days at any hospital? No External Providers External Provider: [facility] Next Contact Date: 07/16/2019 Service Request Date: Service Type: Resolution: Reviewer: Comments: Coverage Notice Reviewer: [id number] Loren Bland Notice Issued Date-Time: 07/15/2019 16:35 Notice Type: Patient Choice Letter Notice Delivered To: Patient Relationship to Patient: Building Drafter Name: Delivery Method: HAND - Hand Delivered Alyx Days: Prior Verbal Notification: Recipient Understood Notice: Yes Recipient Signature: Yes Med Rec Note Co-signed by Attending: Coverage Notice Comment: NO HOME HEALTH PREFERENCE NO INFUSION COMPANY PREFERENCE REFUSAL OF CORRECTION PLACEMENT Last DP export: 07/16/19 9:31 a Patient Name: THELMA CARLSON Page [phone] at 1611 All edits/amendments must be made on the electronic document DICTATION DATE: 07/16/19 1610 CAR CUSTOMIZER: GAVIN 07/16/19 1610 RPT#: [id number] [place] DATE: STATUS: ADM IN [facility] [address] [place] [address] END OF REPORT
--- NOTE | 2019-07-16 16:37 | MORECARE ---
CASE MANAGEMENT DISCHARGE SUMMARY PATIENT: THELMA CARLSON UNIT: [id number] ADM DATE: 07/02/19 AGE: 43 : 75 SEX: F ROOM/BED: D.9118 AUTHOR: DAMIAN,DOC PHYSICIAN: REFERRING PHYSICIAN: RISSA RUSSO MD DATE OF SERVICE: 07/16/19 Discharge Plan Patient Name: THELMA CARLSON Facility: [facility]:[place] : 1975 Planned Disposition: Outpatient clinics\\services (Programs) Anticipated Discharge Date: Discharge Date: Expected LOS: Initial Reviewer: [id number] Initial Review Date: 07/03/2019 Generated: 07/16/19 5:37 pm Comments DCP- Discharge Planning Updated by [id number]: Kane Bland on 07/16/19 9:[address] Patient Name: THELMA CARLSON Encounter No: [id number] : 1975 Primary Insurance: UNINSURED DISCOUNT PLAN Anticipated DC Date: Planned Disposition: Home with Home Health External Planned Provider: TO BE DETERMINED DCP follow-up note: CM ASKED ELIZABETH BABB OF [facility] IF SHE HAS A SKILLED FACILITY THAT MIGHT CONSIDER PT FOR LAKESHA CARE. ELIZABETH ADVISED THAT SHE DOES NOT AND THAT THEY WOULD NOT DO IV NAFCILLIN. CM ASKED EFRAIN OF [facility] SERVICES IF SHE HAS A SKILLED FACILITY THAT MIGHT CONSIDER PT FOR LAKESHA CARE, SHE REPLIED THAT IT WOULD BE A "LONGSHOT" BUT SHE WILL CHECK. CM SPOKE TO PALOMA OF [employer] [facility], RICH OF [facility] AND KO OF [facility], ASKING IF ANY OF THEM WOULD CONSIDER PT FOR [facility] INFUSION MANAGEMENT AND PHYSICAL THERAPY. ALL WILL CHECK AND LET CM KNOW. CM CALLED AND SPOKE TO [employer], , OBTAINED QUOTE FOR NAFCILLIN 2GM, Q4 HOURS: $173.31 PER DAY, IT WOULD NEED PUMP AND HOME HEALTH. PT WOULD BE REQUIRED TO MAKE FIRST PAYMENT ON PAYMENT PLAN. CM CALLED [facility], , SPOKE TO SWETA WHO WILL WORK UP QUOTE AND CALL CM BACK. CM CONTINUES TO WORK ON POSSIBLE DISCHARGE OPTIONS. KANE BLAND, CASE MANAGEMENT Kane Bland DCP- Discharge Planning Updated by [id number]: Kane Bland on 07/15/19 4:[address] Patient Name: THELMA CARLSON Encounter No: [id number] : 1975 Primary Insurance: UNINSURED DISCOUNT PLAN Anticipated DC Date: Planned Disposition: Home with Home Health External Planned Provider: TO BE DETERMINED DCP follow-up note: CM MET WITH PT AND SPOUSE IN ROOM TO DISCUSS DISCHARGE NEEDS AND PLANNING. PT GAVE PERMISSION TO DISCUSS HER PLANNING AND CARE WITH SPOUSE. CM DISCUSSED AVAILABILITY OF HOME HEALTH, REHAB SERVICES AND MEDICAL EQUIPMENT. PT HAS NO INSURANCE, SPOUSE REPORTS THEY ARE OVER INCOME FOR MEDICAID. PT WAS WORKING PRIOR TO GETTING SICK. PT DOES NOT WANT TO GO TO RESIDENTIAL CARE IN LONG TERM, EVEN IF MEDICAID PAID FOR IT. PT WOULD PREFER TO GO HOME WITH HOME HEALTH. PT'S SPOUSE REPORTS PT WILL NEED IV ANTIBIOTICS, ASKED IF HOME HEALTH AND INFUSION COMPANY WOULD WORK OUT PAYMENT PLAN. CHOICE SIGNED FOR ANY HOME HEALTH COMPANY AND INFUSION COMPANY, WITH REFUSAL OF NURSING FACILITY. SPOUSE PLANS TO TRANSPORT HOME AT DISCHARGE. PT STATES SHE WAS ABLE TO STAND WITH THERAPY TODAY AND IS PROGRESSING. PT NOW ON 4 1/2 LITERS OXYGEN. PT'S SPOUSE REPORTS HE CAN HAVE A FRIEND STAY WITH PT WHEN HE IS AT WORK TO ENSURE PT HAS 24 HOUR CARE AT HOME. THEY HAVE PURCHASED A WHEELCHAIR, ROLLATOR WALKER AND BEDSIDE COMMODE FOR HOME USE. PT REFUSED [facility] F[facility]ILITY PLACEMENT. PT WANTS TO GO HOME WITH HOME HEALTH AND HOME INFUSION, SPOUSE WOULD LIKE PRICES AND TO KNOW IF PAYMENT PLANS WOULD BE AVAILABLE. CM TO CALL AND ASK HOME HEALTH SOON POSSIBLE REGARDING OPTIONS. Kane Bland, CASE MANAGEMENT DCP- Discharge Planning Updated by [id number]: Samra Torrez on 07/03/19 3:[address] Patient Name: THELMA CARLSON Admission Status: ER Accout number: [id number] Admission Date: 07-02-2019 : 1975 Admission Diagnosis: Attending: RISSA CONNOLLY Current LOS: 1 Anticipated DC Date: Planned Disposition: Primary Insurance: UNINSURED DISCOUNT PLAN Discharge Planning Comments: CM MET WITH PATIENT'S ABE. PATIENT IS CURRENTLY ON A VENTILATOR. SPOUSE STATES UNSURE OF PLAN AT THIS TIME. STATES SHE HAS A HISTORY OF ASTHMA AND MAY NEED A NUBULIZER, STATES NO INSURANCE SO SHE MAY NEED HELP GETTING WHAT SHE NEEDS. HE STATED ABE FROM [employer] MET WITH HIM TODAY ABOUT MEDICAID. CM TO FOLLOW AND ASSIST. Resource Director: Samra Torrez DCPIA - Discharge Planning Initial Assessment Updated by [id number]: Samra Torrez on 07/03/19 4:27 pm * PCP CONVENIENT CARE * Preadmission Environment Home with Family * ADLs Independent * List name and contact numbers for known caregivers / representatives who currently or will assist patient after discharge: ABE,, * Has this patient been hospitalized within the prior 30 days at any hospital? No Coverage Notice Reviewer: [id number] Loren Bland Notice Issued Date-Time: 07/15/2019 16:35 Notice Type: Patient Choice Letter Notice Delivered To: Patient Relationship to Patient: Classification Officer Name: Delivery Method: HAND - Hand Delivered Alyx Days: Prior Verbal Notification: Recipient Understood Notice: Yes Recipient Signature: Yes Med Rec Note Co-signed by Attending: Coverage Notice Comment: NO HOME HEALTH PREFERENCE NO INFUSION COMPANY PREFERENCE REFUSAL OF LONG TERM PLACEMENT Last DP export: 07/16/19 3:11 p Patient Name: THELMA CARLSON Page [phone] at 1637 All edits/amendments must be made on the electronic document DICTATION DATE: 07/16/191636 CARNALLITE PLANT OPERATOR: GAVIN 07/16/191636 RPT#: [id number] DC DATE: STATUS: ADM IN [facility] [address] [place] [address] END OF REPORT
--- NOTE | 2019-07-16 16:45 | MORECARE ---
CASE MANAGEMENT DISCHARGE SUMMARY PATIENT: THELMA CARLSON UNIT: [id number] ADM DATE: 07/02/19 AGE: 43 : 75 SEX: F ROOM/BED: D.0472 AUTHOR: DAMIAN,DOC PHYSICIAN: REFERRING PHYSICIAN: RISSA RUSSO MD DATE OF SERVICE: 07/16/19 Discharge Plan Patient Name: THELMA CARLSON Facility: [facility]:[place] : 1975 Planned Disposition: Outpatient clinics\\services (Programs) Anticipated Discharge Date: Discharge Date: Expected LOS: Initial Reviewer: [id number] Initial Review Date: 07/03/2019 Generated: 07/16/19 5:45 pm Comments DCP- Discharge Planning Updated by [id number]: Kane Bland on 07/16/19 3:[address] Patient Name: THELMA CARLSON Encounter No: [id number] : 1975 Primary Insurance: UNINSURED DISCOUNT PLAN Anticipated DC Date: Planned Disposition: Outpatient clinics\\services (Programs) External Planned Provider: [facility] OUTPATIENT DCP follow-up note: CM DISCUSSED PT'S DISCHARGE PLAN WITH MULTIDISCIPLINARY TEAM MEETING. PT REPORTS NOT HAVING PRIMARY DOCTOR FOR HOME HEALTH, HAS BEEN SEEING WALK IN CLINIC WHEN NEEDED. PT'S SPOUSE REPORTED THEY ARE OVER INCOME FOR MEDICAID. FAMILY REPORTING ABILITY TO CARE FOR PT AT HOME IF THEY COULD HAVE HOME HEALTH. CM HAS CALLED [facility], THE COSTS OF NAFCILLIN 2GM Q4 HOURS FOR 4 WEEKS IS $163.50 TO &173.31 PER DAY. [facility] AND [facility] HAVE DECLINED LAKESHA CARE, CARE IV IS STILL EVALUATING. YOLI SMITH WILL DISCUSS POSSIBILITY OF OTHER IV MEDICATIONS THAT MAY BE JUST EFFECTIVE THAT MAY ALLOW FOR OUTPATIENT INFUSION DAILY AT OUTPATIENT CENTER. CM RECEIVED MESSAGE FROM [facility], SHE HAS NON PROFIT HOMES THAT MAY CONSIDER FOR REHAB AND ANTIBIOTICS. CM MET WITH PTI AND DISCUSSED OPTIONS WITH PT. PT EXCITED THAT SHE STOOD WITH THERAPY "ALMOST BY MYSELF" TODAY. 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 PT IS HOPEFUL TO GO HOME AND DOES THINK THAT THEY CAN GET PT TO AND FROM INFUSION DAILY AT HOSPITAL. PT ALSO WILLING TO EXPLORE INTERMEDIATE IF SHE COULD GET ANTIBIOTICS AND THERAPY AT NO COSTS. CHOICE SIGNED FOR [facility]. CM FAXED REFERRAL TO [facility], . PAULETTEJen WILL CONTINUE TO EXPLORE LAKESHA INTERMEDIATE CARE FOR PT. CM WAITING ON PHYSICIANS TO DETERMINE IF PT CAN EFFECTIVELY TREAT WITH ANOTHER IV MEDICATION THAT WOULD ALLOW FOR OUTPATIENT IV DAILY AT OUTPATIENT CENTER. ANURAG De Santiago DCP- Discharge Planning Updated by [id number]: Kane Bland on 07/16/19 9:[address] Patient Name: THELMA CARLSON Encounter No: [id number] : 1975 Primary Insurance: UNINSURED DISCOUNT PLAN Anticipated DC Date: Planned Disposition: Home with Home Health External Planned Provider: TO BE DETERMINED DCP follow-up note: CM ASKED ELIZABETH BABB OF [facility] IF SHE HAS A SKILLED FACILITY THAT MIGHT CONSIDER PT FOR LAKESHA CARE. ELIZABETH ADVISED THAT SHE DOES NOT AND THAT THEY WOULD NOT DO IV NAFCILLIN. CM ASKED [facility] IF SHE HAS A SKILLED FACILITY THAT MIGHT CONSIDER PT FOR LAKESHA CARE, SHE REPLIED THAT IT WOULD BE A "LONGSHOT" BUT SHE WILL CHECK. CM SPOKE TO PALOMA OF [facility], RICH OF [facility] AND [facility], ASKING IF ANY OF THEM WOULD CONSIDER PT FOR [facility] INFUSION MANAGEMENT AND PHYSICAL THERAPY. ALL WILL CHECK AND LET CM KNOW. CM CALLED AND SPOKE TO [facility], , OBTAINED QUOTE FOR NAFCILLIN 2GM, Q4 HOURS: $173.31 PER DAY, IT WOULD NEED PUMP AND HOME HEALTH. PT WOULD BE REQUIRED TO MAKE FIRST PAYMENT ON PAYMENT PLAN. CM CALLED [facility], , SPOKE TO SWETA WHO WILL WORK UP QUOTE AND CALL CM BACK. CM CONTINUES TO WORK ON POSSIBLE DISCHARGE OPTIONS. KANE BLAND, CASE MANAGEMENT Kane Bland DCP- Discharge Planning Updated by [id number]: Kane Bland on 07/15/19 4:[address] Patient Name: THELMA CARLSON Encounter No: [id number] : 1975 Primary Insurance: UNINSURED DISCOUNT PLAN Anticipated DC Date: Planned Disposition: Home with Home Health External Planned Provider: TO BE DETERMINED DCP follow-up note: CM MET WITH PT AND SPOUSE IN ROOM TO DISCUSS DISCHARGE NEEDS AND PLANNING. PT GAVE PERMISSION TO DISCUSS HER PLANNING AND CARE WITH SPOUSE. CM DISCUSSED AVAILABILITY OF HOME HEALTH, REHAB SERVICES AND MEDICAL EQUIPMENT. PT HAS NO INSURANCE, SPOUSE REPORTS THEY ARE OVER INCOME FOR MEDICAID. PT WAS WORKING PRIOR TO GETTING SICK. PT DOES NOT WANT TO GO TO TYPESETTING MACHINE TENDER CARE IN INTERMEDIATE, EVEN IF MEDICAID PAID FOR IT. PT WOULD PREFER TO GO HOME WITH HOME HEALTH. PT'S SPOUSE REPORTS PT WILL NEED IV ANTIBIOTICS, ASKED IF HOME HEALTH AND INFUSION COMPANY WOULD WORK OUT PAYMENT PLAN. CHOICE SIGNED FOR ANY HOME HEALTH COMPANY AND INFUSION COMPANY, WITH REFUSAL OF NURSING FACILITY. SPOUSE PLANS TO TRANSPORT HOME AT DISCHARGE. PT STATES SHE WAS ABLE TO STAND WITH THERAPY TODAY AND IS PROGRESSING. PT NOW ON 4 1/2 LITERS OXYGEN. PT'S SPOUSE REPORTS HE CAN HAVE A FRIEND STAY WITH PT WHEN HE IS AT WORK TO ENSURE PT HAS 24 HOUR CARE AT HOME. THEY HAVE PURCHASED A WHEELCHAIR, ROLLATOR WALKER AND BEDSIDE COMMODE FOR HOME USE. PT REFUSED [facility] FACILITY PLACEMENT. PT WANTS TO GO HOME WITH HOME HEALTH AND HOME INFUSION, SPOUSE WOULD LIKE PRICES AND TO KNOW IF PAYMENT PLANS WOULD BE AVAILABLE. CM TO CALL AND ASK HOME HEALTH SOON POSSIBLE REGARDING OPTIONS. Kane lBand, CASE MANAGEMENT DCP- Discharge Planning Updated by [id number]: Samra Torrez on 07/03/19 3:[address] Patient Name: THELMA CARLSON Admission Status: Accout number: [id number] Admission Date: 07-02-2019 : 1975 Admission Diagnosis: Attending: RISSA CONNOLLY Current LOS: 1 Anticipated DC Date: Planned Disposition: Primary Insurance: UNINSURED DISCOUNT PLAN Discharge Planning Comments: CM MET WITH PATIENT'S ABE. PATIENT IS CURRENTLY ON A VENTILATOR. SPOUSE STATES UNSURE OF PLAN AT THIS TIME. STATES SHE HAS A HISTORY OF ASTHMA AND MAY NEED A NUBULIZER, STATES NO INSURANCE SO SHE MAY NEED HELP GETTING WHAT SHE NEEDS. HE STATED ABE FROM [facility] MET WITH HIM TODAY ABOUT MEDICAID. CM TO FOLLOW AND ASSIST. [employer] Worker: Samra Torrez DCPIA - Discharge Planning Initial Assessment Updated by [id number]: Samra Torrez on 07/03/19 4:27 pm * PCP CONVENIENT CARE * Preadmission Environment Home with Family * ADLs Independent * List name and contact numbers for known caregivers / representatives who currently or will assist patient after discharge: ABE,, * Has this patient been hospitalized within the prior 30 days at any hospital? No Coverage Notice Reviewer: [id number] Loren Bland Notice Issued Date-Time: 07/15/2019 16:35 Notice Type: Patient Choice Letter Notice Delivered To: Patient Relationship to Patient: Escrow Closer Name: Delivery Method: HAND - Hand Delivered Alyx Days: Prior Verbal Notification: Recipient Understood Notice: Yes Recipient Signature: Yes Med Rec Note Co-signed by Attending: Coverage Notice Comment: NO HOME HEALTH PREFERENCE NO INFUSION COMPANY PREFERENCE REFUSAL OF INTERMEDIATE PLACEMENT Last DP export: 07/16/19 3:37 p Patient Name: THELMA CARLSON Page [id number] at 1645 All edits/amendments must be made on the electronic document DICTATION DATE: 07/16/191644 DEVELOPER EVANGELIST: GAVIN 07/16/191644 RPT#: [id number] DC DATE: STATUS: ADM IN [facility] [address] [place] [address] END OF REPORT
--- NOTE | 2019-07-16 18:56 | NUR ---
I CONCUR WITH THE COTTON INSPECTOR ASSESSMENT OF THIS PATIENT.
--- NOTE | 2019-07-16 18:57 | NUR ---
ASSESS RESP STATUS: DISCUSSED BENEFITS OF PEP THERAPY VIA METANEB AND IMPORTANCE OF COMPLIANCE REGARDING INSENTIVE SPIROMETRY MINIMAL EFFORT NOTED WITH ONLY 250 VIA IS. BILATERAL CRACKLES/FAINT EXP WHEEZING TO ANTERIOR MANCIA OF AUSCULATATION SPO2 90 FIO2 7L HFNC INSTRUCTED ON THE IMPORTANCE AND BENEFITS OF DEEP BREATHING AND COUGHING AGAIN ONLY MINIMAL EFFORT NOTED. ZERO CYANOSIS EQUALATERAL EXCURSION NOTED NO IMMEDIATE S/S RESP DISTRESS.
--- NOTE | 2019-07-16 19:27 | NUR ---
EVENING ROUNDS COMPLETE. PT LAYING IN BED. NO SIGNS OF DISTRESS. PT DENIES ANY PAIN OR NEEDS AT THIS TIME. CL IN REACH, BED IN LOWEST POSITION.
[2019-07-16 20:00] VITALS: BP 164/79
[2019-07-17] VITALS (12 sets, daily range): BP systolic 134–178; BP diastolic 84–119
--- NOTE | 2019-07-17 04:23 | NUR ---
APPLIED BILEVEL DUE TO SPO2 DESATURATION FIO2 65% SPO2 CURRENTLY 94 AND HOLDING
--- NOTE | 2019-07-17 05:32 | NUR ---
PT URINE IN BE BAG IS NOW LIGHT PINK. THIS IS NEWLY NOTED.
[2019-07-17 06:48] LABS: BASOPHILS 0.4 % (0-2); HEMATOCRIT 35.5 % (36.0-48.0); HEMOGLOBIN 11.3 g/dL (12-16); IMMATURE GRANULOCYTES 0.2 % (0-5); LYMPHOCYTES 7.7 % (15-50); MCH 28.3 pg (26.0-34.0); MCHC 31.8 g/dL (31.0-37.0); MEAN PLATELET VOLUME 9.9 fL (7.4-10.4); NEUTROPHILS 85.7 % (40-80); PLATELET COUNT 234 10x3/uL (130-400)
[2019-07-17 06:55] LABS: MCV 88.8 fL (80.0-100.0)
[2019-07-17 07:20] LABS: ALBUMIN 2.1 g/dL (3.4-5.0); ANION GAP 12.1 mmol/L (8-16); BILIRUBIN - TOTAL 0.39 mg/dL (0.2-1.3); CALCIUM 8.6 mg/dL (8.5-10.1); CARBON DIOXIDE 27.7 mmol/L (21.0-32.0); CREATININE - SERUM 3.3 mg/dL (0.6-1.3); POTASSIUM - SERUM 3.8 mmol/L (3.5-5.1); PROTEIN - SERUM 6.4 g/dL (6.4-8.2); VANCOMYCIN - RANDOM 23.6 ug/mL (10.0-20.0)
--- NOTE | 2019-07-17 11:16 | NUR ---
PT O2 LEVELS DROPED TO 78% WHILE WE WERE GIVING HER A BATH. WE STOPPED AND SAT HER BACK UP NC @9L AND COULDNT GET PT O2 LEVEL ABOVE 82%. RESP GOT PT TO 85% BUT COULDNT GET HER TO TAKE DEEP ENOUGH BREATHS SO PUT HER ON BIPAP. PT REQUESTED SOMETHING FOR ANXIETY AT THIS TIME. PAGE ANUJ KENT SHE TOLD ME TO PAGE . WAITING ON TO PAGE BACK. WILL CTM
--- NOTE | 2019-07-17 15:09 | NUR ---
PT ARRIVED TO ICU FROM MED 2. PT ALERT AND ANSWERS ALL QUESTIONS. PT PLACED ON 10L HIGH FLOW AND O2 SATURATION IS 93%. REMAINING VSS STABLE. DENIES ANY NEEDS AT THIS TIME, CALL LIGHT WITHIN REACH. BED ALARM ON. WILL CONT TO FOLLOW POC
--- NOTE | 2019-07-17 15:16 | NUR ---
ABE, , CALLED AND WANTED AN UPDATE ON THE PT. THELMA CALLED AND GAVE HER PERMISSION TO GIVE ABE AND UPDATE.
--- NOTE | 2019-07-17 16:36 | NUR ---
OT NOTE: PT COMPLETED SUPINE TO SIT WITH CGA. PT COMPLETED EOB SITTING WITH SBA. PT COMPLETED UE AROM AXS. PT 02 SATS DROPPED TO 80%. PT RETURNED TO SUPINE POSITION. PT COMPLETED BREATHING TECHNIQUES. PT STATED SHE FELT FINE. NURSING NOTIFIED. [phone] THANK YOU,WANG PATTERSON
--- NOTE | 2019-07-17 16:46 | NUR ---
PT PLACED ON BIPAP.
--- NOTE | 2019-07-17 19:00 | NUR ---
Report received from off going nurse. Pt is laying in bed on bipap at this time. Initial assessment completed, see flowsheet for details. Pt denies needs at this time. No s/s of distress. Will continue to monitor.
--- NOTE | 2019-07-17 21:00 | NUR ---
Pt is laying in bed on bipap. No needs noted. No s/s of distress. Will continue to monitor.
--- NOTE | 2019-07-17 23:00 | NUR ---
Reassessment completed, see flowsheet for details. No needs noted at this time. No s/s of distress. Will continue to monitor.
[2019-07-18] VITALS (22 sets, daily range): BP systolic 128–206; BP diastolic 80–122
--- NOTE | 2019-07-18 01:00 | NUR ---
Pt is laying in bed with eyes closed. No s/s of distress noted. Will continue to monitor.
--- NOTE | 2019-07-18 03:00 | NUR ---
Reassessment completed, see flowsheet for details. Pt is laying in bed with bipap on and eyes closed at this time. No needs voiced. NO s/s of distress noted. Will continue to monitor.
[2019-07-18 04:54] LABS: BASOPHILS 0.2 % (0-2); EOSINOPHILS 0.4 % (0-7); HEMOGLOBIN 10.7 g/dL (12-16); IMMATURE GRANULOCYTES 0.2 % (0-5); LYMPHOCYTES 5.2 % (15-50); MCH 28.5 pg (26.0-34.0); MCHC 32.4 g/dL (31.0-37.0); MEAN PLATELET VOLUME 9.4 fL (7.4-10.4); MONOCYTES 2.4 % (2-11); NEUTROPHILS 91.6 % (40-80); PLATELET COUNT 218 10x3/uL (130-400); RBC 3.75 10x6/uL (4.00-5.40); RDW 13.8 % (11.5-14.5); WBC 14.7 10x3/uL (4.8-10.8)
--- NOTE | 2019-07-18 05:00 | NUR ---
Pt is laying in bed with the bipap on and eyes closed. No s/s of distress noted. No needs voiced. Will continue to monitor.
[2019-07-18 05:19] LABS: ANION GAP 11.7 mmol/L (8-16); BILIRUBIN - TOTAL 0.46 mg/dL (0.2-1.3); CALCIUM 8.6 mg/dL (8.5-10.1); CARBON DIOXIDE 29.4 mmol/L (21.0-32.0); CREATININE - SERUM 2.9 mg/dL (0.6-1.3); POTASSIUM - SERUM 4.1 mmol/L (3.5-5.1); PROTEIN - SERUM 6.4 g/dL (6.4-8.2); VANCOMYCIN - RANDOM 19.1 ug/mL (10.0-20.0)
--- NOTE | 2019-07-18 07:00 | NUR ---
PT REPORT RECEIVED FROM HYDRAULIC OIL TOOL OPERATOR NURSE. SHIFT ASSESSMENT COMPLETED.
--- NOTE | 2019-07-18 11:00 | NUR ---
DR GALDAMEZ AT BEDSIDE. UPDATE GIVEN. WILL CONTINUE TO MONITOR
--- NOTE | 2019-07-18 17:57 | NUR ---
PT ASSISTED ONTO BEDPAN. HAD SMALL BM. WHEN ASKED IF SHE WANTED A CHG BATH PT REFUSED STATING SHE HAD ONE YESTERDAY. WILL CONTINUE TO MONITOR
[2019-07-19] VITALS (23 sets, daily range): BP systolic 109–157; BP diastolic 68–99
[2019-07-19 05:05] LABS: BASOPHILS 0.2 % (0-2); EOSINOPHILS 0.8 % (0-7); HEMATOCRIT 31.7 % (36.0-48.0); HEMOGLOBIN 10.2 g/dL (12-16); IMMATURE GRANULOCYTES 0.3 % (0-5); LYMPHOCYTES 6.5 % (15-50); MCH 28.3 pg (26.0-34.0); MCHC 32.2 g/dL (31.0-37.0); MCV 87.8 fL (80.0-100.0); MEAN PLATELET VOLUME 9.1 fL (7.4-10.4); MONOCYTES 4.1 % (2-11); NEUTROPHILS 88.1 % (40-80); PLATELET COUNT 213 10x3/uL (130-400); RBC 3.61 10x6/uL (4.00-5.40); RDW 13.7 % (11.5-14.5); WBC 16.4 10x3/uL (4.8-10.8)
[2019-07-19 05:30] LABS: ANION GAP 8.9 mmol/L (8-16); BILIRUBIN - TOTAL 0.52 mg/dL (0.2-1.3); CALCIUM 8.7 mg/dL (8.5-10.1); CARBON DIOXIDE 32.8 mmol/L (21.0-32.0); CREATININE - SERUM 3.1 mg/dL (0.6-1.3); POTASSIUM - SERUM 3.7 mmol/L (3.5-5.1); PROTEIN - SERUM 6.3 g/dL (6.4-8.2); VANCOMYCIN - RANDOM 23.7 ug/mL (10.0-20.0)
--- NOTE | 2019-07-19 07:00 | NUR ---
PT REPORT RECEIVED FROM CANDY SEPARATOR HARD NURSE. NO ACUTE SIGNS OF DISTRESS NOTED. PT CURRENTLY ON BIPAP. WILL CONTINUE TO MONITOR
--- NOTE | 2019-07-19 09:47 | NUR ---
Nutrition follow-up: Pt feeling better. Diet: ADA consistent CHO mechanical soft PO intake 75-100% of last 3 meals Labs reviewed Wt: 292# RDN following.
--- NOTE | 2019-07-19 09:55 | NUR ---
RT STUDENT IN ROOM EDUCATING PT ON INCENTIVE SPIROMETRY. EDUCATION PROVIDED ON HOW IT HELPS IN THE LUNGS.
--- NOTE | 2019-07-19 11:00 | NUR ---
DR GALDAMEZ AT BEDSIDE. UPDATE GIVEN. ORDERS RECEIVED.
--- NOTE | 2019-07-19 12:00 | NUR ---
DR ALEX AT BEDSIDE. UPDATE GIVEN. WILL CONTINUE TO MONITOR
--- NOTE | 2019-07-19 13:22 | NUR ---
PT UP ON BEDPAN. HAD A BM. CLEANED UP AND BABY POWDER APPLIED TO BOTTOM TO PROMOTE DRYNESS. WILL CONTINUE TO MONITOR
--- NOTE | 2019-07-19 16:59 | NUR ---
1530 PT RECIEVED ALERT AND ORIENTED VSS NO NEEDS NOTED 1630 BIPAP REMOVED AND DINNER TRAY SERVED
--- NOTE | 2019-07-19 17:02 | NUR ---
PLACED ON BIPAP
--- NOTE | 2019-07-19 19:00 | NUR ---
PT IS RESTING IN BED WITH EYES CLOSED. BIPAP IS ON. VITALS ARE STABLE. WILL PERFORM FULL ASSESSMENT AND DOCUMENT. PT VOICES NO PAIN AT THIS TIME. BED IS LOW,SIDE RAILSX2,CALL LIGHT WITHIN REACH. WILL CONTINUE TO MONITOR
--- NOTE | 2019-07-19 21:08 | NUR ---
PT ASKED WHILE GIVING HER HER SCHEDULED MEDS IF IT WAS TIME FOR AN ANXIETY PILL. I LOOKED AND IT IS TIME FOR ANOTHER ONE. PT VOICED"YES I WOULD LIKE ONE PLEASE". I ASKED THE REASON SHE WOULD LIKE ONE. SHE VOICED"IM ANXIOUS ABOUT THINKING ABOUT PUTTING THAT MASK BACK ON BEFORE I GO TO SLEEP". I WILL PULL XANEX PER ORDER AND DOC ON JUL. NO PAIN IS VERBALIZED AT THIS TIME. IS AT BEDSIDE. I HAVE ALSO FLUSHED PICC LINE AT THIS TIME WITH 10ML OF NS PER ORDER TO KEEP PATENT. IT IS SL. BED IS LOW,SIDE RAILSX2,CALL LIGHT WITHIN REACH.WILL CONTINUE TO MONITOR
--- NOTE | 2019-07-19 22:14 | NUR ---
PT ASKED IF SHE COULD HAVE HELP TURNING IN BED. HELPED REPOSITION PT TO HER RIGHT SIDE WITH PILLOW BEHIND BACK ALLOWING PRESSURE OFF HER BOTTOM. BIPAP WAS PUT BACK ON. HER ALSO LEFT TO GO HOME AT THIS TIME, VOICING HE WILL BE BACK IN THE AM. PT VOICES NO PAIN AT THIS TIEM. SAYS "IM GOING TO TRY TO GO TO SLEEP". VITAL SIGNS ARE STABLE. BED IS LOW,SIDE RAILSX2,CALL LIGTH WITHIN REACH. WILL CONINTUE TO MONITOR
--- NOTE | 2019-07-19 23:30 | NUR ---
PT IS RESTING IN BED WITH EYES CLOSED. BIPAP IS ON. VITALS ARE STABLE. BED IS LOW,SIDE RAISLX2,CALL LIGTH WITHN REACH. WILL CONTINEU TO MONITOR
[2019-07-20] VITALS (24 sets, daily range): BP systolic 114–183; BP diastolic 67–114
--- NOTE | 2019-07-20 02:12 | NUR ---
PT IS RESTING IN BED. TURNED TO LEFT SIDE WITH PILLOWS BEDHIND BACK ALLOWING PRESSURE OFF THE BOTTOM. PT VOICED"IM COMFORTABLE, THANK YOU". VITALS ARE STABLE. NO C/O OF PAIN. BED IS LOW,SIDE RAILSX2,CALL LIGHT WITHIN REACH. WILL CONTINUE TO MONITOR
--- NOTE | 2019-07-20 04:08 | NUR ---
PT IS RESTING IN BED WITH EYES CLOSED. VITAL SIGNS ARE STABLE. BIPAP IS ON. BED IS LOW,SIDE RAILSX2,CALL LIGTH WITHIN REACH. WILL CONTINUE TO MONITOR
--- NOTE | 2019-07-20 04:48 | NUR ---
PT WEIGHT IS 265 POUNDS PER BEDSCALE
[2019-07-20 04:50] LABS: BASOPHILS 0.3 % (0-2); EOSINOPHILS 0.6 % (0-7); HEMATOCRIT 31.3 % (36.0-48.0); HEMOGLOBIN 10.1 g/dL (12-16); IMMATURE GRANULOCYTES 0.3 % (0-5); LYMPHOCYTES 5.7 % (15-50); MCH 28.5 pg (26.0-34.0); MCHC 32.3 g/dL (31.0-37.0); MCV 88.2 fL (80.0-100.0); MEAN PLATELET VOLUME 9.4 fL (7.4-10.4); MONOCYTES 4.9 % (2-11); NEUTROPHILS 88.2 % (40-80); PLATELET COUNT 198 10x3/uL (130-400); RBC 3.55 10x6/uL (4.00-5.40); RDW 13.4 % (11.5-14.5); WBC 14.8 10x3/uL (4.8-10.8)
[2019-07-20 05:03] LABS: BILIRUBIN - TOTAL 0.48 mg/dL (0.2-1.3); CALCIUM 8.7 mg/dL (8.5-10.1); CARBON DIOXIDE 33.6 mmol/L (21.0-32.0); CREATININE - SERUM 2.8 mg/dL (0.6-1.3); PHOSPHOROUS 3.8 mg/dL (2.5-4.9); PROTEIN - SERUM 6.3 g/dL (6.4-8.2); VANCOMYCIN - RANDOM 16.8 ug/mL (10.0-20.0)
[2019-07-20 05:29] LABS: ANION GAP 10.7 mmol/L (8-16); POTASSIUM - SERUM 4.3 mmol/L (3.5-5.1)
--- NOTE | 2019-07-20 06:41 | NUR ---
PT IS RESTING IN BED WITH EYES CLOSED. VITAL SIGNS ARE STABLE. BIPAP IS ON. BED IS LOW,SIDE RAILSX2,CALL LIGHT WIHTIN REACH. WILL CONINTUE TO MONITOR
--- NOTE | 2019-07-20 07:47 | NUR ---
PATIENT REFUSED UPDRAFT TREATMENTS. WANTS TO TALK TO DOCTOR BEFORE SHE TAKES THEM AGAIN.
--- NOTE | 2019-07-20 17:32 | NUR ---
0700 REPORT RECIEVED AND CARE ASSUMED OF PATIENT.. PT O2 IS HIGH FLOW NASAL ANNULA AT THIS TIME..LUNG SOUNDS ARE COARE THRU OUT.. REFUSES RESP TX 0830 BREAKFAST IS SERVED AT THIS TIME.. FEEDING SELF. 0845 REQUEST BEDPAN 0910 WIHTOUT RESULTS ON BOTELLO TOTAL CHG BATH GIVEN WITH LINEN CHANGE AND PERICARE 0915 VISITOR IN TO SEE PT.. [address] GALDAMEZ IN TO SEE PT..ORDERS TO UPDATE IS GIVEN AND DR SPOKE WITH PATIENT ABOUT MEDICATION REFUSAL NO TRANSFER ORDERS AT THIS TIME 1210 DR ALEX IN TO SEE PATIENT.... UPDATE GIVEN 1215 BEDPAN USED WITH SMALL SOFT STOO 1220 BIPAP PLACED ON PATIENT AFTER PT HAD WHAT SHE SAID WAS A PANIC ATTACK.. 1300 SAT NOW 96% 9 L HI FLOW ON AND LUNCH SERVED.. ASSISTED WITH MEAL BY VISITOR AT BEDSIDE.. 1500 BACK ON BIPAP 1600 I AND O DONE 1700 IN TO SEE PT.. UPDATE IS GIVEN 1730 BS COVERED DIET IS SERVED PATIENT DOES NOT WANT TO EAT AT THIS TIME.. REMAINS AT THE BEDSIDE.. HER UPDRAFT REFUSAL.. NO
--- NOTE | 2019-07-20 19:29 | NUR ---
WHEN ASSESSING PT AFTER RECIEVING REPORT SHE VOCALIZES "IS MY ANXIETY MEDICINE DUE?". I CHECKED AND IT IS AVAILABLE TO TAKE AT THIS TIME. PT VOICED"YES PLEASE". SHE C/O OF NO PAIN, JUST BEING ANXIOUS. PT BP IS ALSO HIGH AT THIS TIME 191/118. READ IN NOTES FROM TODAY TO TREAT SYSTOLIC BPS OVER 150 WITH HYDRALALIZE 25MG PO. WILL GIVE AND DOCUMENT ON MAR AT THIS TIME. ALL OTHER VITALS ARE STABLE. PT IS ON BIPAP AT THIS TIME. TOOK OFF TO ADMINISTER MEDS AND PUT BACK ON. WILL PERFORM FULL ASSESSMENT AND DOCUMENT. BED IS LOW,SIDE RALILSX2,CALL LIGTH WITHIN REACH. I WILL CONINTUE TO MONITOR
--- NOTE | 2019-07-20 22:00 | NUR ---
PT VERBALIZES THAT SHE FEELS THAT SHE CANNOT GET ENOUHG AIR. BIPAP IS ON AT 75% WITH A OXYGEN SATURATION OF 94%. RE LISTENED TO LUNGS. LEFT UPPER, LOWER LOBES ARE VERY DIMINISHED WITH PLURAL RUB SOUNDS. WHEN FIRST ASCULTATING AT THE BEGINNING OF SHIFT THERE WERE CRACKLES IN BOTH LEFT LOBES. RIGHT LOBES HAVE CRACKLES BUT ARE NOT DIFFERENT FROM INTIAL ASSESSMENT. WILL CALL DENICE AND NOTIFY. PT DOES NOT SHOW SIGNS OF RR DISTRESS. RR ARE 22, OXYGEN SATURATION IS 94% ON BIPAP 75%. BP IS STILL ELEVATED, HOWEVER I JUST ADMINISTERED 2100 MEDS. I WILL CONITNUE TO MONITOR THIS. IS AT BEDSIDE. BED IS LOW,SIDE RIALSX2,CALL LIGHT WITHIN REACH. WILL CONTINEUE TO MONITOR
--- NOTE | 2019-07-20 22:03 | NUR ---
STAT X RAY OF THE CHEST ORDER PER DR.CHINN Scotty Amado XRAY IS HERE AT THIS TIME
--- NOTE | 2019-07-20 23:18 | NUR ---
PT IS RESTING IN BED WITH EYES CLOSED. BIPAP IS ON. VITAL SIGNS ARE STABLE. BP IS 151/93 AT THIS TIME WHICH HAS IMPROVED AND WITHIN LIMITS THAT ORDERED TO ACHIEVE. I WILL CONTINUE THIS. BED IS LOW,SIDE RAILSX2,CALL LIGHT WITHIN REACH.
[2019-07-21] VITALS (23 sets, daily range): BP systolic 129–176; BP diastolic 76–144
--- NOTE | 2019-07-21 00:36 | NUR ---
CALLED AT THIS TIME AND I NOTIFIED HIM OF THE PRELIMINARY RADIOGRAPHIC REPORT FROM XRAY OF THE CHEST. NO NEW ORDERS WHERE GIVEN.
--- NOTE | 2019-07-21 02:45 | NUR ---
PT IS RESTING IN BED WITH EYES CLOSED. BIPAP ON. VITALS ARE STABLE. WILL PERFORM RE ASSESSMENT AND DOCUMENT. BED IS LOW,SIDE RAILSX2,CALL LIGHT WITHIN REC. WILL CONITNUE TO MONITOR
--- NOTE | 2019-07-21 04:30 | NUR ---
PT IS RESTING IN BED WITH EYES CLOSED. VITAL SIGNS ARE STABLE. WEIGHT PT PER BEDSCALE AND IT IS 262 POUNDS. PT VOICES NO COMPLAINTS, JUST "IM SLEEPY". I VOICED THAT SHE CAN CONTINUE TO REST. BED IS LOW,SIDE RAILSX2,CALL LIGHT WITHIN REACH. WILL CONTINUE TO MONITOR
--- NOTE | 2019-07-21 06:41 | NUR ---
PT IS RESTING IN BED WITH EYES CLOSED. VITAL SIGNS ARE STABLE. BED IS LOW,SIDE RAILSX2,CALL LIGHT WIHTIN REACH.
[2019-07-21 06:51] LABS: BASOPHILS 0.2 % (0-2); EOSINOPHILS 0.6 % (0-7); HEMATOCRIT 30.4 % (36.0-48.0); HEMOGLOBIN 9.7 g/dL (12-16); IMMATURE GRANULOCYTES 0.2 % (0-5); LYMPHOCYTES 6.9 % (15-50); MCH 28.4 pg (26.0-34.0); MCHC 31.9 g/dL (31.0-37.0); MCV 89.1 fL (80.0-100.0); MEAN PLATELET VOLUME 9.6 fL (7.4-10.4); MONOCYTES 2.5 % (2-11); NEUTROPHILS 89.6 % (40-80); PLATELET COUNT 205 10x3/uL (130-400); RBC 3.41 10x6/uL (4.00-5.40); RDW 13.6 % (11.5-14.5); WBC 12.6 10x3/uL (4.8-10.8)
[2019-07-21 06:56] LABS: ANION GAP 7.6 mmol/L (8-16); BILIRUBIN - TOTAL 0.48 mg/dL (0.2-1.3); CALCIUM 8.9 mg/dL (8.5-10.1); CARBON DIOXIDE 35.2 mmol/L (21.0-32.0); CREATININE - SERUM 2.5 mg/dL (0.6-1.3); MAGNESIUM - SERUM 2.1 mg/dL (1.8-2.4); PHOSPHOROUS 4.4 mg/dL (2.5-4.9); POTASSIUM - SERUM 4.8 mmol/L (3.5-5.1); PROTEIN - SERUM 6.3 g/dL (6.4-8.2); VANCOMYCIN - RANDOM 17.3 ug/mL (10.0-20.0)
--- NOTE | 2019-07-21 14:06 | NUR ---
0700 REPORT RECIEVED AND CARE ASSUMED OF PATIENT.. SEE SHIFT ASSESMNT FLOW SHEET FOR ASSESMENT FINDINGS.. 0800 AT BEDSIDE.. BREAKFAST SERVED.. 0830 REQUEST BEDPAN , WIHTOUT RESULTS.. CHG BATH GIVEN.. 0915 PHYSICAL THERAPY HERE .. PT SITTING ON SIDE OF BED BIPAP O2 ON.. REMAINS AT BEDSIDE.. , 1130 DR ALEJO IN TO SEE PT UIPDATE GIVEN.. 1150 BS 236 INSULIN COVER 1200 IN TO SEE PT.. LUNCH SERVED.. O2 ON PER HI FLOW NC DR GALDAMEZ IN TO SEE PATIENT PT EATING AND STARTED COUGHING WHILE DR AT BEDSIDE.. DR STATED THAT HE FEELS THAT PATIENT IS ASPIRATING ... PT PLACED BACK ON BIPAP O2 AFTER SAT DROPPED TO 81% SLOWLY RECOVERED TO 93% WHEN BIPAP PLACED.. [address] GALDAMEZ... PT REQUEST BEDPAN.. 1315 SOFT FORMED STOOL IN BEDPAN.. 1330 PT IS MORE RELAXED O2 SAT INCREASED AT RTHIS TIME..
--- NOTE | 2019-07-21 16:32 | NUR ---
1600SPEECH PATH IN UNIT SWALLOW EVAL DONE.. PT ON NC FOR EVAL BACK ON MASK AFTER..
--- NOTE | 2019-07-21 17:53 | NUR ---
1700 AT BEDSIDE DIET SERVED BIPAP CHANGED TO HI FLOW NASAL CANNULA AT 7 LITERS FSBS COVERED.. MEDS GIVEN ASSISTING PT WITH MEAL.. 1750 BACK ON BIPAP AT BEDSIDE..
--- NOTE | 2019-07-21 19:00 | NUR ---
Report received from off going nurse. Pt is laying in bed with eyes closed and bipap on. No needs voiced at this time. No s/s of distress noted. Will continue to monitor.
--- NOTE | 2019-07-21 21:00 | NUR ---
Pt is resting in bed with at bedside. No new needs verbalized. No s/s of distress noted. Will continue to monitor.
--- NOTE | 2019-07-21 23:00 | NUR ---
Reassessment completed, see flowsheet for details. Pt is laying in bed with eyes closed. No needs voiced. No s/s of distress noted. Will continue to monitor.
[2019-07-22] VITALS (18 sets, daily range): BP systolic 100–145; BP diastolic 62–92
--- NOTE | 2019-07-22 01:00 | NUR ---
Pt is laying in bed with eyes closed. No needs voiced. No s/s of distress noted. Will continue to monitor.
--- NOTE | 2019-07-22 03:00 | NUR ---
Reassessment completed, see flowsheet for details. Pt is laying in bed with eyes closed. No needs voiced at this time. No s/s of distress noted. Will continue to monitor.
[2019-07-22 05:33] LABS: BASOPHILS 0.1 % (0-2); EOSINOPHILS 1.8 % (0-7); HEMATOCRIT 28.4 % (36.0-48.0); HEMOGLOBIN 8.9 g/dL (12-16); IMMATURE GRANULOCYTES 0.2 % (0-5); LYMPHOCYTES 15.6 % (15-50); MCHC 31.3 g/dL (31.0-37.0); MCV 89.3 fL (80.0-100.0); MEAN PLATELET VOLUME 9.6 fL (7.4-10.4); MONOCYTES 6.4 % (2-11); NEUTROPHILS 75.9 % (40-80); PLATELET COUNT 204 10x3/uL (130-400); RBC 3.18 10x6/uL (4.00-5.40); RDW 13.5 % (11.5-14.5); WBC 10.7 10x3/uL (4.8-10.8)
[2019-07-22 06:43] LABS: ALBUMIN 2.1 g/dL (3.4-5.0); ANION GAP 6.4 mmol/L (8-16); BILIRUBIN - TOTAL 0.39 mg/dL (0.2-1.3); CALCIUM 8.6 mg/dL (8.5-10.1); CARBON DIOXIDE 33.4 mmol/L (21.0-32.0); CREATININE - SERUM 2.4 mg/dL (0.6-1.3); POTASSIUM - SERUM 4.8 mmol/L (3.5-5.1); PROTEIN - SERUM 5.9 g/dL (6.4-8.2); VANCOMYCIN - RANDOM 18.5 ug/mL (10.0-20.0)
--- NOTE | 2019-07-22 08:00 | NUR ---
07 ASSESSMENT COMPLETE VOICES NO C/O PAIN
--- NOTE | 2019-07-22 12:43 | NUR ---
Nutrition follow-up: Diet: ADA consistent CHO PO intake 50-100% of meals Labs reviewed +BM Wt: 266# Pt out to floor today per physician PO intake remains fair to good at most meals RDN following.
--- NOTE | 2019-07-22 13:04 | NUR ---
0900 PHYSICAL THERAPY STAFF AT BEDSIDE ASSISTED UP TO CHAIR
--- NOTE | 2019-07-22 13:05 | NUR ---
1100 ASSIST X 2 UP TO BEDSIDE COMMODE LARGE SOFT BM NOTED
--- NOTE | 2019-07-22 13:07 | NUR ---
1300 APPETITE GOOD FAMILYO AT BEDSIDE C/O PAIN 5/10 TO LEFT FOOT NORCO GIVEN
--- NOTE | 2019-07-22 18:14 | NUR ---
1500 REMAINS UP IN CHAIR 9
--- NOTE | 2019-07-22 18:15 | NUR ---
1700 ASSIST X 3 BACK TO BED DINNER TRAY SERVED
--- NOTE | 2019-07-22 18:18 | NUR ---
1800 TRANSFERRED TO 214
--- NOTE | 2019-07-22 18:42 | NUR ---
PT ARRIVED VIA BED. NO COMPLAINTS/CONCERNS, BIPAP IN ROOM. CL IN REACH, SRX2, NO FAMILY AT BEDSIDE.
--- NOTE | 2019-07-22 19:40 | NUR ---
PT IS ASKING FOR BIPAP I EXPLAINED TO PT I WOULD BRING HER MEDS AND OTHER NEEDS SOON POSSIBLE BED LOW AND LOCKED AND PT HAS CALL LIGHT
[2019-07-23] VITALS: BP 122/70
[2019-07-23 04:00] VITALS: BP 133/83
[2019-07-23 04:34] LABS: BASOPHILS 0.1 % (0-2); EOSINOPHILS 0.5 % (0-7); HEMATOCRIT 30.5 % (36.0-48.0); HEMOGLOBIN 9.5 g/dL (12-16); IMMATURE GRANULOCYTES 0.2 % (0-5); LYMPHOCYTES 4.7 % (15-50); MCH 28.1 pg (26.0-34.0); MCHC 31.1 g/dL (31.0-37.0); MCV 90.2 fL (80.0-100.0); MEAN PLATELET VOLUME 9.8 fL (7.4-10.4); NEUTROPHILS 91.5 % (40-80); PLATELET COUNT 199 10x3/uL (130-400); RBC 3.38 10x6/uL (4.00-5.40); RDW 13.4 % (11.5-14.5); WBC 9.5 10x3/uL (4.8-10.8)
[2019-07-23 05:06] LABS: ALBUMIN 2.4 g/dL (3.4-5.0); ANION GAP 11.4 mmol/L (8-16); BILIRUBIN - TOTAL 0.39 mg/dL (0.2-1.3); CALCIUM 8.7 mg/dL (8.5-10.1); CARBON DIOXIDE 30.5 mmol/L (21.0-32.0); CREATININE - SERUM 2.5 mg/dL (0.6-1.3); POTASSIUM - SERUM 4.9 mmol/L (3.5-5.1); PROTEIN - SERUM 6.4 g/dL (6.4-8.2); VANCOMYCIN - RANDOM 21.3 ug/mL (10.0-20.0)
--- NOTE | 2019-07-23 08:00 | NUR ---
ASSISTED FROM BED TO RECLINER PER PATIENT REQUEST. PATIENT REQUIRES TWO-PERSON ASSIST WITH TRANSFERS.
[2019-07-23 09:00] VITALS: BP 150/74
--- NOTE | 2019-07-23 10:00 | NUR ---
PATIENT ALERT AND ORIENTED, PLEASANT MOOD, COMPLIANT WITH MORNING MEDS. COOPERATIVE, DENIES PAIN/NEEDS AT THIS TIME, SPOUSE AT BEDSIDE. CALL LIGHT AT HAND, INSTRUCTED TO CALL WITH NEEDS.
--- NOTE | 2019-07-23 11:30 | NUR ---
FSBS 399
[2019-07-23 12:00] VITALS: BP 144/88
--- NOTE | 2019-07-23 12:00 | NUR ---
PATIENT VERY NON-COMPLIANT WITH DIET. ORDERED OUT FOR FRUIT CULLER WHICH SHE READILY CONSUMED DESPITE ATTEMPTED RE-DIRECTION. AFTER EATING PIZZA, PATIENT ATE MACHINE TECHNICIAN SALAD.
--- NOTE | 2019-07-23 13:58 | NUR ---
1345-LEFT UPPER ARM PICC VERY SLUGGISH TO FLUSH PER JARON MCGILL. I CHANGED THE DRESSING USING STERILE TECHNIQUE AND TRIED TO FLUSH BOTH PORTS. VERY SLUGGISH. PAGE INTO VENKATA HUITRON APN FOR ORDERS FOR ACTIVASE. AWAITING RESPONSE.
--- NOTE | 2019-07-23 13:59 | NUR ---
NEW ORDERS RECEIVED.
--- NOTE | 2019-07-23 14:20 | NUR ---
PICC LINE NON-PATENT AT THIS TIME. CATH-KINASE ADMIN TO BOTH LUMENS PER Cory JORGENSEN RN.
--- NOTE | 2019-07-23 14:24 | NUR ---
PLACED ACTIVASE MUCH POSSIBLE INTO PICC LUMENS. WILL LET SIT FOR ONE HOUR AND FLUSH.
--- NOTE | 2019-07-23 15:38 | NUR ---
ACTIVASE PULLED FROM BOTH LUMENS ALONG WITH SOME BLOOD FROM RED. RED LUMEN FLUSHED (USING PULSE METHOD) WITH 20 CC NS. PURPLE LUMEN PULSED WITH 20 CC NS WITH SLIGHT RESISTANCE.
[2019-07-23 16:00] VITALS: BP 153/80
--- NOTE | 2019-07-23 17:52 | NUR ---
OT NOTE: PT COMPLETED SIT TO STAND WITH MAX A X3. PT COMPLETED CHAIR TO BED TRANSFER WITH MAX X2. PT COMPLETED SITTING TO SUPINE WITH MAX A X2. PT COMPLETED KULDEEP/DOFF SHOES WITH MAX A. [id number] [address] [place]
--- NOTE | 2019-07-23 19:38 | NUR ---
EVENING ROUNDS COMPLETE. PT SITTING UP IN BED. NO SIGNS OF DISTRESS. PT DENIES ANY PAIN OR NEEDS AT THIS TIME. CL IN REACH, BED IN LOWEST POSITION.
[2019-07-23 20:00] VITALS: BP 135/71
[2019-07-24] VITALS: BP 144/78
[2019-07-24 04:00] VITALS: BP 136/79
[2019-07-24 05:20] LABS: BASOPHILS 0.1 % (0-2); EOSINOPHILS 0.2 % (0-7); HEMOGLOBIN 8.8 g/dL (12-16); IMMATURE GRANULOCYTES 0.2 % (0-5); MCHC 30.3 g/dL (31.0-37.0); MEAN PLATELET VOLUME 10.1 fL (7.4-10.4); MONOCYTES 2.8 % (2-11); NEUTROPHILS 91.7 % (40-80); PLATELET COUNT 199 10x3/uL (130-400); RBC 3.14 10x6/uL (4.00-5.40); RDW 13.8 % (11.5-14.5); WBC 8.1 10x3/uL (4.8-10.8)
[2019-07-24 05:42] LABS: MCV 92.4 fL (80.0-100.0)
[2019-07-24 05:57] LABS: ALBUMIN 2.2 g/dL (3.4-5.0); BILIRUBIN - TOTAL 0.32 mg/dL (0.2-1.3); CALCIUM 8.7 mg/dL (8.5-10.1); CARBON DIOXIDE 26.9 mmol/L (21.0-32.0); CREATININE - SERUM 2.5 mg/dL (0.6-1.3); POTASSIUM - SERUM 4.9 mmol/L (3.5-5.1); PROTEIN - SERUM 6.1 g/dL (6.4-8.2); VANCOMYCIN - RANDOM 14.7 ug/mL (10.0-20.0)
--- NOTE | 2019-07-24 08:53 | NUR ---
PT X2 PERSON ASSIST TO BSC. PT HAD A BM. NURSE WIPED PT. MEPILEX ON COCCYX. PT THEN X2 PERSON ASSIST TO RECLINER CHAIR. CL IN REACH. AT BEDSIDE.
[2019-07-24 09:00] VITALS: BP 135/77
--- NOTE | 2019-07-24 11:16 | NUR ---
PT TO COACH CLEANER.
[2019-07-24 12:00] VITALS: BP 129/58
--- NOTE | 2019-07-24 15:52 | NUR ---
PT SITTING IN RECLINER CHAIR. PT STATES SHE IS NOT READY TO GET BACK IN BED YET. I VERBALIZED UNDERSTNADING. PT STATES SHE HAS NO FURTHER NEEDS AT THIS TIME. BED LOW. CL IN REACH.
[2019-07-24 16:00] VITALS: BP 126/81
--- NOTE | 2019-07-24 17:44 | NUR ---
I have reviewed this patient and I concur with the Shift Assessment completed by the Licensed Practical Nurse today this shift.
--- NOTE | 2019-07-24 17:45 | NUR ---
I have reviewed this patient and I concur with the Shift Assessment completed by the Licensed Practical Nurse today this shift.
--- NOTE | 2019-07-24 19:13 | NUR ---
EVENING ROUNDS COMPLETE. PT SITTING UP IN BED. NO SIGNS OF DISTRESS. AAOX4. O2 VIA NC AT 2.5L. PT DENIES ANY PAIN OR NEEDS AT THIS TIME. CL IN REACH, BED IN LOWEST POSITION.
--- NOTE | 2019-07-24 19:44 | NUR ---
OT NOTE: PT COMPLETED BUE AROM EXS UPRIGHT IN BED. [phone] THANK YOU,WANG PATTERSON
[2019-07-24 20:00] VITALS: BP 121/72
[2019-07-25 04:00] VITALS: BP 140/77
[2019-07-25 04:58] LABS: BASOPHILS 0.1 % (0-2); EOSINOPHILS 0.9 % (0-7); HEMATOCRIT 29.1 % (36.0-48.0); IMMATURE GRANULOCYTES 0.2 % (0-5); LYMPHOCYTES 10.1 % (15-50); MCH 28.2 pg (26.0-34.0); MCHC 30.9 g/dL (31.0-37.0); MCV 91.2 fL (80.0-100.0); MEAN PLATELET VOLUME 10.1 fL (7.4-10.4); MONOCYTES 9.9 % (2-11); NEUTROPHILS 78.8 % (40-80); PLATELET COUNT 225 10x3/uL (130-400); RBC 3.19 10x6/uL (4.00-5.40); RDW 13.8 % (11.5-14.5); WBC 8.1 10x3/uL (4.8-10.8)
[2019-07-25 05:28] LABS: ANION GAP 10.2 mmol/L (8-16); CALCIUM 8.6 mg/dL (8.5-10.1); CARBON DIOXIDE 28.2 mmol/L (21.0-32.0); CREATININE - SERUM 2.6 mg/dL (0.6-1.3); POTASSIUM - SERUM 4.4 mmol/L (3.5-5.1); VANCOMYCIN - RANDOM 20.1 ug/mL (10.0-20.0)
[2019-07-25 10:59] VITALS: BP 166/83
[2019-07-25 13:52] VITALS: BP 150/78
--- NOTE | 2019-07-25 14:57 | NUR ---
Nutrition Follow-up: Good/fair PO intake. Denies N/V/C/D. Diet: Diabetic PO intake: 50-100% Wt: 265.6# (07/22); 224# (07/02) Last BM: 07/25 Labs noted: Glu 149 Meds noted: Solumedrol, Pepcid, Humulin, Lantus -Continue current diet as tolerated. -Monitor wt. -RD following.
--- NOTE | 2019-07-25 17:11 | MORECARE ---
CASE MANAGEMENT DISCHARGE SUMMARY PATIENT: THELMA CARLSON UNIT: [id number] ADM DATE: 07/02/19 AGE: 43 : 75 SEX: F ROOM/BED: D.4152 AUTHOR: DAMIAN,DOC PHYSICIAN: REFERRING PHYSICIAN: RISSA RUSSO MD DATE OF SERVICE: 07/25/19 Discharge Plan Patient Name: THELMA CARLSON Facility: [facility]:[place] : 1975 Planned Disposition: Outpatient clinics\\services (Programs) Anticipated Discharge Date: Discharge Date: Expected LOS: Initial Reviewer: [id number] Initial Review Date: 07/03/2019 Generated: 07/25/19 6:11 pm Comments DCP- Discharge Planning Updated by [id number]: Philomena Huynh on 07/25/19 4:[address] Patient Name: THELMA CARLSON Encounter No: [id number] : 1975 Primary Insurance: UNINSURED DISCOUNT PLAN Anticipated DC Date: Planned Disposition: Outpatient clinics\\services (Programs) External Planned Provider: : DCP follow-up note: CM spoke with family about the possibility of requiring 02 at home post dc. CM spoke with Yuli at [facility] and provided a cole of 172.65 for 24 hours and 115 for hs. Patient stated she could afford oxygen if needed. Dr Truong provided voucher for bipap. LIZ signed for [facility]. CM will continue to follow. Philomena Huynh MSN, RN, CM DCP- Discharge Planning Updated by [id number]: Kane Bland on 07/16/19 3:[address] Patient Name: THELMA CARLSON Encounter No: [id number] : 1975 Primary Insurance: UNINSURED DISCOUNT PLAN Anticipated DC Date: Planned Disposition: Outpatient clinics\\services (Programs) External Planned Provider: [facility] OUTPATIENT DCP follow-up note: CM DISCUSSED PT'S DISCHARGE PLAN WITH MULTIDISCIPLINARY TEAM MEETING. PT REPORTS NOT HAVING PRIMARY DOCTOR FOR HOME HEALTH, HAS BEEN SEEING WALK IN CLINIC WHEN NEEDED. PT'S SPOUSE REPORTED THEY ARE OVER INCOME FOR MEDICAID. FAMILY REPORTING ABILITY TO CARE FOR PT AT HOME IF THEY COULD HAVE HOME HEALTH. CM HAS CALLED [facility], THE COSTS OF NAFCILLIN 2GM Q4 HOURS FOR 4 WEEKS IS $163.50 TO &173.31 PER DAY. [facility] AND [facility] HAVE DECLINED LAKESHA CARE, CARE IV IS STILL EVALUATING. YOLI SMITH WILL DISCUSS POSSIBILITY OF OTHER IV MEDICATIONS THAT MAY BE JUST EFFECTIVE THAT MAY ALLOW FOR OUTPATIENT INFUSION DAILY AT OUTPATIENT CENTER. CM RECEIVED MESSAGE FROM [facility], SHE HAS NON PROFIT HOMES THAT MAY CONSIDER FOR REHAB AND ANTIBIOTICS. CM MET WITH PTI AND DISCUSSED OPTIONS WITH PT. PT EXCITED THAT SHE STOOD WITH THERAPY "ALMOST BY MYSELF" TODAY. 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 PT IS HOPEFUL TO GO HOME AND DOES THINK THAT THEY CAN GET PT TO AND FROM INFUSION DAILY AT HOSPITAL. PT ALSO WILLING TO EXPLORE [place] IF SHE COULD GET ANTIBIOTICS AND THERAPY AT NO COSTS. CHOICE SIGNED FOR [facility]. CM FAXED REFERRAL TO [facility], . [facility] WILL CONTINUE TO EXPLORE LAKESHA [place] CARE FOR PT. CM WAITING ON PHYSICIANS TO DETERMINE IF PT CAN EFFECTIVELY TREAT WITH ANOTHER IV MEDICATION THAT WOULD ALLOW FOR OUTPATIENT IV DAILY AT OUTPATIENT CENTER. Kane Bland, CASE MANAGEMENT DCP- Discharge Planning Updated by [id number]: Kane Bland on 07/16/19 9:[address] Patient Name: THELMA CARLSON Encounter No: [id number] : 1975 Primary Insurance: UNINSURED DISCOUNT PLAN Anticipated DC Date: Planned Disposition: Home with Home Health External Planned Provider: TO BE DETERMINED DCP follow-up note: DORA ASKED ELIZABETH BABB OF [facility] IF SHE HAS A SKILLED FACILITY THAT MIGHT CONSIDER PT FOR LAKESHA CARE. ELIZABETH ADVISED THAT SHE DOES NOT AND THAT THEY WOULD NOT DO IV NAFCILLIN. DORA ASKED [facility] IF SHE HAS A SKILLED FACILITY THAT MIGHT CONSIDER PT FOR LAKESHA CARE, SHE REPLIED THAT IT WOULD BE A "LONGSHOT" BUT SHE WILL CHECK. CM SPOKE TO PALOMA OF [facility], [facility] OF [facility] AND [facility], ASKING IF ANY OF THEM WOULD CONSIDER PT FOR [facility]TY HOME HEALTH INFUSION MANAGEMENT AND PHYSICAL THERAPY. ALL WILL CHECK AND LET CM KNOW. DORA CALLED AND SPOKE TO Estela [phone], OBTAINED QUOTE FOR NAFCILLIN 2GM, Q4 HOURS: $173.31 PER DAY, IT WOULD NEED PUMP AND HOME HEALTH. PT WOULD BE REQUIRED TO MAKE FIRST PAYMENT ON PAYMENT PLAN. CM CALLED [facility], , SPOKE TO SWETA WHO WILL WORK UP QUOTE AND CALL CM BACK. CM CONTINUES TO WORK ON POSSIBLE DISCHARGE OPTIONS. KANE BLAND, CASE MANAGEMENT Kane Bland DCP- Discharge Planning Updated by [id number]: Kane Bland on 07/15/19 4:[address] Patient Name: THELMA CARLSON Encounter No: [id number] : 1975 Primary Insurance: UNINSURED DISCOUNT PLAN Anticipated DC Date: Planned Disposition: Home with Home Health External Planned Provider: TO BE DETERMINED DCP follow-up note: CM MET WITH PT AND SPOUSE IN ROOM TO DISCUSS DISCHARGE NEEDS AND PLANNING. PT GAVE PERMISSION TO DISCUSS HER PLANNING AND CARE WITH SPOUSE. CM DISCUSSED AVAILABILITY OF HOME HEALTH, REHAB SERVICES AND MEDICAL EQUIPMENT. PT HAS NO INSURANCE, SPOUSE REPORTS THEY ARE OVER INCOME FOR MEDICAID. PT WAS WORKING PRIOR TO GETTING SICK. PT DOES NOT WANT TO GO TO CHIROPRACTIC PRACTICE MANAGER CARE IN [place], EVEN IF MEDICAID PAID FOR IT. PT WOULD PREFER TO GO HOME WITH HOME HEALTH. PT'S SPOUSE REPORTS PT WILL NEED IV ANTIBIOTICS, ASKED IF HOME HEALTH AND INFUSION COMPANY WOULD WORK OUT PAYMENT PLAN. CHOICE SIGNED FOR ANY HOME HEALTH COMPANY AND INFUSION COMPANY, WITH REFUSAL OF NURSING FACILITY. SPOUSE PLANS TO TRANSPORT HOME AT DISCHARGE. PT STATES SHE WAS ABLE TO STAND WITH THERAPY TODAY AND IS PROGRESSING. PT NOW ON 4 1/2 LITERS OXYGEN. PT'S SPOUSE REPORTS HE CAN HAVE A FRIEND STAY WITH PT WHEN HE IS AT WORK TO ENSURE PT HAS 24 HOUR CARE AT HOME. THEY HAVE PURCHASED A WHEELCHAIR, ROLLATOR WALKER AND BEDSIDE COMMODE FOR HOME USE. PT REFUSED LONGTERM FACILITY PLACEMENT. PT WANTS TO GO HOME WITH HOME HEALTH AND HOME INFUSION, SPOUSE WOULD LIKE PRICES AND TO KNOW IF PAYMENT PLANS WOULD BE AVAILABLE. CM TO CALL AND ASK HOME HEALTH SOON POSSIBLE REGARDING OPTIONS. Kane Bland, ANURAG MANAGEMENT DCP- Discharge Planning Updated by [id number]: Samra Torrez on 07/03/19 3:[address] Patient Name: THELMA CARLSON Admission Status: ER Accout number: [id number] Admission Date: 07-02-2019 : 1975 Admission Diagnosis: Attending: RISSA CONNOLLY Current LOS: 1 Anticipated DC Date: Planned Disposition: Primary Insurance: UNINSURED DISCOUNT PLAN Discharge Planning Comments: CM MET WITH PATIENT'S ABE. PATIENT IS CURRENTLY ON A VENTILATOR. SPOUSE STATES UNSURE OF PLAN AT THIS TIME. STATES SHE HAS A HISTORY OF ASTHMA AND MAY NEED A NUBULIZER, STATES NO INSURANCE SO SHE MAY NEED HELP GETTING WHAT SHE NEEDS. HE STATED ABE FROM [employer] MET WITH HIM TODAY ABOUT MEDICAID. CM TO FOLLOW AND ASSIST. Electrophysiology Tech: Samra Torrez DCPIA - Discharge Planning Initial Assessment Updated by [id number]: Samra Torrez on 07/03/19 4:27 pm * PCP CONVENIENT CARE * Preadmission Environment Home with Family * ADLs Independent * List name and contact numbers for known caregivers / representatives who currently or will assist patient after discharge: ABE,, * Has this patient been hospitalized within the prior 30 days at any hospital? No Coverage Notice Reviewer: [id number] Loren Bland Notice Issued Date-Time: 07/15/2019 16:35 Notice Type: Patient Choice Letter Notice Delivered To: Patient Relationship to Patient: Automatic Hemmer Name: Delivery Method: HAND - Hand Delivered Alyx Days: Prior Verbal Notification: Recipient Understood Notice: Yes Recipient Signature: Yes Med Rec Note Co-signed by Attending: Coverage Notice Comment: NO HOME HEALTH PREFERENCE NO INFUSION COMPANY PREFERENCE REFUSAL OF [place] PLACEMENT Last DP export: 07/16/19 3:45 p Patient Name: THELMA CARLSON Page [id number] at 1711 All edits/amendments must be made on the electronic document DICTATION DATE: 07/25/191710 MEDICAL SALES SPECIALIST: GAVIN 07/25/191710 RPT#: [id number] DC DATE: STATUS: ADM IN [facility] [address] [place] [address] END OF REPORT
--- NOTE | 2019-07-25 17:27 | NUR ---
OT NOTE: PT COMPLETED TRANSFER TRAINING WITH PROPER BODY MECHANICS FOR INCREASED I AND SAFETY. PT COMPLETED CHAIR TO BED TRANSFER WITH MIN A. PT COMPLETED BED MOB WITH MOD A. PT COMPLETED BUE AROM AXS WITH FUNCTIONAL WALKER MANAGEMENT. [phone] THANK YOU,WANG PATTERSON
--- NOTE | 2019-07-25 18:26 | NUR ---
OT NOTE: PT SEEN IN PM. PT REPORTS THAT SHE HAS BEEN UP FOR 7+ HRS TODAY. EXTENSIVE PRACTICE AND EDUCATION ON SIT TO STAND FROM CHAIR LEVEL. PT HAVING INCREASED DIFFICULTY DUE TO POSITIONING AND WEAKNESS. ALLOWED PT APPROX 5 ATTEMPTS TO STAND WITH ONLY MIN ASSIST AND USE OF WALKER. CONTINUAL EDUCATION REGARDING BODY POSITIONING FOR EASE OF SIT TO STAND. AFTER APPROX 7 ATTEMPTS AND PT BECOMING VERY FRUSTRATED, SHE ENDED UP REQUIRING 2 PERSON ASSIST, HOWEVER, THIS WAS GOOD EXS FOR UES, TRUNK, AND LES. AFTER STANDING , PT WAS ABLE TO TAKE SEVERAL STEPS FORWARD, BACKWARD, AND SIDE STEP WITH WALKER AND MIN ASSIST. ABLE TO STAY STANDING FOR 3 MIN. PT WAS FATIGUED AND REUQIRED MOD ASSIST FOR SIT TO SUPINE AND FOR POSITIONING IN BED. ASHLEY BE, OTR/L [phone]
--- NOTE | 2019-07-25 19:30 | NUR ---
PT UP IN CHAIR AND TOLERATING WELL BE HAS BEEN DCED AT THIS TIMEBED LOW AND LOCKED CALL LIGHT IS WITH FAMILY IN ROOM PT DENIES OTHER NEEDS AT THIS TIME
[2019-07-25 20:00] VITALS: BP 130/69
[2019-07-26] VITALS: BP 126/67
--- NOTE | 2019-07-26 03:33 | NUR ---
I have reviewed this patient and I concur with the Shift Assessment completed by the Licensed Practical Nurse today this shift.
[2019-07-26 04:00] VITALS: BP 151/64
[2019-07-26 04:39] LABS: BASOPHILS 0 % (0-2); EOSINOPHILS 0.1 % (0-7); HEMATOCRIT 28.1 % (36.0-48.0); HEMOGLOBIN 8.9 g/dL (12-16); IMMATURE GRANULOCYTES 0.3 % (0-5); LYMPHOCYTES 6.8 % (15-50); MCH 28.8 pg (26.0-34.0); MCHC 31.7 g/dL (31.0-37.0); MCV 90.9 fL (80.0-100.0); MEAN PLATELET VOLUME 9.5 fL (7.4-10.4); MONOCYTES 4.6 % (2-11); NEUTROPHILS 88.2 % (40-80); PLATELET COUNT 201 10x3/uL (130-400); RBC 3.09 10x6/uL (4.00-5.40); RDW 14.1 % (11.5-14.5); WBC 6.9 10x3/uL (4.8-10.8)
[2019-07-26 05:13] LABS: ANION GAP 14.3 mmol/L (8-16); CALCIUM 9.1 mg/dL (8.5-10.1); CARBON DIOXIDE 23.4 mmol/L (21.0-32.0); CREATININE - SERUM 2.4 mg/dL (0.6-1.3); POTASSIUM - SERUM 4.7 mmol/L (3.5-5.1); VANCOMYCIN - RANDOM 14.4 ug/mL (10.0-20.0)
--- NOTE | 2019-07-26 07:20 | NUR ---
X2 PERSON ASSIST TO BSC AND SITTING ON SIDE OF BED. P.T. TO WALK PT TODAY.
[2019-07-26 10:03] VITALS: BP 151/72; BP 151/82
[2019-07-26 12:40] VITALS: BP 135/76
[2019-07-26 18:09] VITALS: BP 144/102
--- NOTE | 2019-07-26 19:30 | NUR ---
REPORT RECEIVED. BESIDE SHIFT REPORT COMPLETE. RR EVEN AND UNLABORED ON 2L NC. SPOUSE AT BEDISDE. NO NEEDS EXPRESSED. CALL LIGHT IN REACH. WILL CTM.
[2019-07-26 20:00] VITALS: BP 120/67
[2019-07-27] VITALS: BP 135/79
[2019-07-27 04:00] VITALS: BP 143/86
[2019-07-27 06:01] LABS: BASOPHILS 0 % (0-2); HEMATOCRIT 29.2 % (36.0-48.0); HEMOGLOBIN 8.9 g/dL (12-16); IMMATURE GRANULOCYTES 0.3 % (0-5); MCH 27.6 pg (26.0-34.0); MCHC 30.5 g/dL (31.0-37.0); MCV 90.7 fL (80.0-100.0); MEAN PLATELET VOLUME 9.7 fL (7.4-10.4); MONOCYTES 6.3 % (2-11); NEUTROPHILS 85.4 % (40-80); PLATELET COUNT 214 10x3/uL (130-400); RBC 3.22 10x6/uL (4.00-5.40); RDW 14.2 % (11.5-14.5); WBC 7.3 10x3/uL (4.8-10.8)
[2019-07-27 06:19] LABS: ANION GAP 13.2 mmol/L (8-16); CARBON DIOXIDE 23.6 mmol/L (21.0-32.0); CREATININE - SERUM 2.2 mg/dL (0.6-1.3); POTASSIUM - SERUM 4.8 mmol/L (3.5-5.1); VANCOMYCIN - RANDOM 20.1 ug/mL (10.0-20.0)
--- NOTE | 2019-07-27 07:47 | NUR ---
HOB @ 45 DEGREES. RR EVEN AND UNLABORED, RESTING PEACEFULLY. CALL LIGHT WITHIN REACH. BED IN LOWEST POSITION. NO DISTRESS NOTED. WILL CONTINUE TO MONITOR.
[2019-07-27 10:17] VITALS: BP 180/88
[2019-07-27 13:16] VITALS: BP 131/78
--- NOTE | 2019-07-27 15:37 | NUR ---
I have reviewed this patient and I concur with the Shift Assessment completed by the Licensed Practical Nurse today this shift.
[2019-07-27 16:37] VITALS: BP 143/76
--- NOTE | 2019-07-27 19:10 | NUR ---
BEDSIDE REPORT RECEIVED FROM DAY SHIFT, PT CARE ASSUMED. INTRODUCED SELF AND WROTE NAME ON BOARD. PT SITTING IN CHAIR AT BEDSIDE, AAOX4, RECEIVING RESPIRATORTY TX VIA BIPAP. AT BEDSIDE. DENIES ANY NEEDS AT THIS TIME. BED IN LOWEST POSITION, CALL LIGHT WITHIN REACH. WILL CONTINUE TO MONITOR.
[2019-07-27 20:00] VITALS: BP 133/72
[2019-07-28] VITALS: BP 134/67
[2019-07-28 04:00] VITALS: BP 145/78
[2019-07-28 05:45] LABS: BASOPHILS 0 % (0-2); EOSINOPHILS 0.4 % (0-7); HEMATOCRIT 26.8 % (36.0-48.0); HEMOGLOBIN 8.4 g/dL (12-16); IMMATURE GRANULOCYTES 0.5 % (0-5); LYMPHOCYTES 5.4 % (15-50); MCH 28.2 pg (26.0-34.0); MCHC 31.3 g/dL (31.0-37.0); MCV 89.9 fL (80.0-100.0); MEAN PLATELET VOLUME 10.1 fL (7.4-10.4); MONOCYTES 6.1 % (2-11); NEUTROPHILS 87.6 % (40-80); PLATELET COUNT 213 10x3/uL (130-400); RBC 2.98 10x6/uL (4.00-5.40); RDW 14.3 % (11.5-14.5); WBC 5.6 10x3/uL (4.8-10.8)
[2019-07-28 06:11] LABS: ANION GAP 14.2 mmol/L (8-16); CALCIUM 8.6 mg/dL (8.5-10.1); CARBON DIOXIDE 22.8 mmol/L (21.0-32.0); CREATININE - SERUM 2.1 mg/dL (0.6-1.3)
[2019-07-28 10:56] VITALS: BP 161/79
--- NOTE | 2019-07-28 13:22 | NUR ---
PATIENT CONCERNED AFTER BREATHING TREATMENT. ABGS COLLECTED. ORDERS RECIEVED. CALMED PT DOWN. PT IS IN CHAIR WITH CALL LIGHT IN REACH. PT DENIES ANY NEEDS AT THIS TIME
--- NOTE | 2019-07-28 14:10 | NUR ---
OT NOTE: (DOS 07/26/19) PT COMPLETED SIT TO STAND WITH MOD/MAX A. PT COMPLETED ADL MOB WITH RW WITH MOD A. PT COMPLETED BED MOB TASKS WITH MAX A. PT REQUIRED TOTAL A WITH KULDEEP/DOFF SHOES. [phone] THANK YOU,WANG PATTERSON
[2019-07-28 14:31] VITALS: BP 151/78
[2019-07-28 18:37] VITALS: BP 144/72
--- NOTE | 2019-07-28 19:43 | NUR ---
I HAVE LOOKED IN A COUPLE TIMES ON PT RESTING WITH EYES CLOSED NOW IS WITH PT BUT LEAVINGBED LOW AND LOCKED OVERLAY MATTRESS IS IN USE
[2019-07-28 20:00] VITALS: BP 131/72
[2019-07-29] VITALS: BP 138/82
[2019-07-29 04:00] VITALS: BP 128/67
--- NOTE | 2019-07-29 04:00 | NUR ---
I have reviewed this patient and I concur with the Shift Assessment completed by the Licensed Practical Nurse today this shift.
[2019-07-29 04:52] LABS: BASOPHILS 0.1 % (0-2); EOSINOPHILS 5.4 % (0-7); HEMATOCRIT 27.3 % (36.0-48.0); HEMOGLOBIN 8.4 g/dL (12-16); IMMATURE GRANULOCYTES 0.5 % (0-5); LYMPHOCYTES 19.7 % (15-50); MCH 27.8 pg (26.0-34.0); MCHC 30.8 g/dL (31.0-37.0); MCV 90.4 fL (80.0-100.0); MEAN PLATELET VOLUME 9.8 fL (7.4-10.4); MONOCYTES 13.7 % (2-11); NEUTROPHILS 60.6 % (40-80); PLATELET COUNT 221 10x3/uL (130-400); RBC 3.02 10x6/uL (4.00-5.40); RDW 14.9 % (11.5-14.5)
[2019-07-29 05:00] LABS: WBC 7.5 10x3/uL (4.8-10.8)
[2019-07-29 05:18] LABS: CALCIUM 8.4 mg/dL (8.5-10.1); CARBON DIOXIDE 21.5 mmol/L (21.0-32.0); POTASSIUM - SERUM 4.5 mmol/L (3.5-5.1); VANCOMYCIN - RANDOM 18.2 ug/mL (10.0-20.0)
[2019-07-29 08:04] VITALS: BP 135/76
[2019-07-29 12:16] VITALS: BP 112/63
--- NOTE | 2019-07-29 12:21 | NUR ---
OT NOTE: PT UP IN CHAIR THIS AM. AT BEDSIDE ASKING QUESTIONS REGARDING WALKER, GAIT BELT ETC.. ALL QUESTIONS ANSWERED. PT REQUIRED MOD ASSIST X 2 FOR SIT TO STAND FROM CHAIR LEVEL. EDUCATED ABOUT DIFFICULTY OF STANDING FROM LOW SURFACE. HE REPORTS THAT HE HAS ALREADY ORDERED HER A LIFT CHAIR FOR HOME. AMB TO SINK WITH MIN ASSIST AND USE OF WALKER AND GAIT BELT. ABLE TO STAND AT SINK TO PERFORM GROOMING TASKS WITH SET UP; BEGAN TO AMB BACK TO CHAIR AND LES BECAME INCREASINGLY WEAKER. PT BEGAN TO GET VERY ANXIOUS AND ENDED UP REQUIRING MAX ASSIST TO GET BACK TO CHAIR. EDUCATION ON CHAIR PUSHUPS TO IMPROVE TRICEP STRENGHT.. INSTRUCTED PT TO PERFORM MUCH POSSIBLE FROM CHAIR LEVEL TO HELP INCREASE STRENGTH AND ENDURANCE. ASHLEY BE, OTR/L [phone]
[2019-07-29 15:47] VITALS: BP 160/80
--- NOTE | 2019-07-29 19:04 | NUR ---
CALL RECEIVED FROM DR MIDDLETON REGARDING CONSULT. STATES NOT PHYSICALLY SEEING PTS TILL NEXT WEEK. 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 SHIREEN KENT WITH DR BOOTH NOTIFIED.
[2019-07-29 20:34] VITALS: BP 126/67
--- NOTE | 2019-07-29 21:05 | NUR ---
EVENING ROUNDS COMPLETED. AFVSS, AAOX4, NO S/S OF RT DISTRESS. RR EVEN AND UNLABORED. CPAP @BEDSIDE, O2 2L. PICC LINE INTACT, 1ST STEP OVELAY INTACT. ASSIST PT UP TO BEDISDE COMODE. PT HAD BM. HELPED PT BACK IN BED. PT VOICED THANKS. FSBS 267. TREATED PER SLIDING SCALE. PT DENIES ANY FURTHER NEEDS AT THIS TIME. WILL CTM. CL WITHIN REACH, BED IN LOW,SR UP X2.
[2019-07-30 00:31] VITALS: BP 127/76
[2019-07-30 05:19] VITALS: BP 125/80
--- NOTE | 2019-07-30 05:59 | NUR ---
PT GABRIELESERylie LYMAN [place]
--- NOTE | 2019-07-30 07:00 | NUR ---
RECEIVED REPORT. ASSUMED CARE OF PATIENT. CALL LIGHT WITHIN REACH. PATIENT WITH EYES OPEN, RESP EVEN AND UNLABORED. PATIENT HAS TAKEN HERSELF OFF OF BIPAP AND O2 VIA HFNC APPLIED. PATIENT REQUESTING TO GET OOB TO BSC. ASSISTED PATIENT WITH ASSIST X 2 OOB TO BEDSIDE COMMODE. NO DISTRESS. PATIENT COMPLAINS THAT SHE CAN NOT FEEL HER LEFT FOOT, OTHER THAN WHEN SHE FEELS PAIN.
--- NOTE | 2019-07-30 07:58 | NUR ---
ASSISTED OFF BSC TO CHAIR AT BEDSIDE WITH ASSIST X 2. PATIENT UNABLE TO PUSH WITH LOWER EXTREMITIES. CALL LIGHT WITHIN REACH. NO DISTRESS.
--- NOTE | 2019-07-30 10:10 | NUR ---
FSBS 268. 15 UNITS LANTUS ADMINISTERED SCHEDULED. NO DISTRESS. CONTINUES SITTING UP TO CHAIR AT BEDSIDE COLORING AT THIS TIME. NO DISTRESS.
[2019-07-30 10:21] VITALS: BP 119/55
--- NOTE | 2019-07-30 11:21 | NUR ---
FSBS 265. 16 UNITS HUMULIN R ADMINISTERED PER SLIDING SCALE.
--- NOTE | 2019-07-30 11:22 | NUR ---
PATIENT COMPLAIN OF ANXIETY, MEDICATED WITH ATIVAN AT THIS TIME. NO DISTRESS.
--- NOTE | 2019-07-30 13:15 | NUR ---
PATIENT OOB, AMBULATING WITH WALKER IN HALLWAY WITH PHYSICAL THERAPY. PATIENT TOLERATING THERAPY WELL.
[2019-07-30 14:30] VITALS: BP 138/77
[2019-07-30 16:00] VITALS: BP 133/77
--- NOTE | 2019-07-30 16:31 | NUR ---
FSBS 175. 8 UNITS HUMULIN R ADMINISTERED PER SLIDING SCALE. NO DISTRESS.
--- NOTE | 2019-07-30 16:41 | MORECARE ---
CASE MANAGEMENT DISCHARGE SUMMARY PATIENT: THELMA CARLSON UNIT: [id number] ADM DATE: 07/02/19 AGE: 43 : 75 SEX: F ROOM/BED: D.3352 AUTHOR: DAMIAN,DOC PHYSICIAN: REFERRING PHYSICIAN: RISSA RUSSO MD DATE OF SERVICE: 07/30/19 Discharge Plan Patient Name: THELMA CARLSON Facility: [facility]:[place] : 1975 Planned Disposition: Outpatient clinics\\services (Programs) Anticipated Discharge Date: 07/31/19 Discharge Date: Expected LOS: 29 Initial Reviewer: [id number] Initial Review Date: 07/03/2019 Generated: 07/30/19 5:40 pm Comments DCP- Discharge Planning Updated by [id number]: Philomena Huynh on 07/25/19 4:[address] Patient Name: THELMA CARLSON Encounter No: [id number] : 1975 Primary Insurance: UNINSURED DISCOUNT PLAN Anticipated DC Date: Planned Disposition: Outpatient clinics\\services (Programs) External Planned Provider: : DCP follow-up note: CM spoke with family about the possibility of requiring 02 at home post dc. CM spoke with Yuli at [facility] [place] and provided a cole of 172.65 for 24 hours and 115 for hs. Patient stated she could afford oxygen if needed. Dr Truong provided voucher for bipap. LIZ signed for [facility]. CM will continue to follow. Philomena Huynh MSN, RN, CM DCP- Discharge Planning Updated by [id number]: Kane Bland on 07/16/19 3:[address] Patient Name: THELMA CARLSON Encounter No: [id number] : 1975 Primary Insurance: UNINSURED DISCOUNT PLAN Anticipated DC Date: Planned Disposition: Outpatient clinics\\services (Programs) External Planned Provider: [facility] OUTPATIENT DCP follow-up note: CM DISCUSSED PT'S DISCHARGE PLAN WITH MULTIDISCIPLINARY TEAM MEETING. PT REPORTS NOT HAVING PRIMARY DOCTOR FOR HOME HEALTH, HAS BEEN SEEING WALK IN CLINIC WHEN NEEDED. PT'S SPOUSE REPORTED THEY ARE OVER INCOME FOR MEDICAID. FAMILY REPORTING ABILITY TO CARE FOR PT AT HOME IF THEY COULD HAVE HOME HEALTH. CM HAS CALLED [facility], THE COSTS OF NAFCILLIN 2GM Q4 HOURS FOR 4 WEEKS IS $163.50 TO &173.31 PER DAY. [facility] [place] [facility] DECL[facility]ED LAKESHA CARE, CARE IV IS STILL EVALUATING. YOLI SMITH WILL DISCUSS POSSIBILITY OF OTHER IV MEDICATIONS THAT MAY BE JUST EFFECTIVE THAT MAY ALLOW FOR OUTPATIENT INFUSION DAILY AT OUTPATIENT CENTER. CM RECEIVED MESSAGE FROM [facility], SHE HAS NON PROFIT HOMES THAT MAY CONSIDER FOR REHAB AND ANTIBIOTICS. CM MET WITH PTI AND DISCUSSED OPTIONS WITH PT. PT EXCITED THAT SHE STOOD WITH THERAPY "ALMOST BY MYSELF" TODAY. 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 PT IS HOPEFUL TO GO HOME AND DOES THINK THAT THEY CAN GET PT TO AND FROM INFUSION DAILY AT HOSPITAL. PT ALSO WILLING TO EXPLORE [place] IF SHE COULD GET ANTIBIOTICS AND THERAPY AT NO COSTS. CHOICE SIGNED FOR [facility]. CM FAXED REFERRAL TO [facility], . [facility] WILL CONTINUE TO EXPLORE LAKESHA [place] CARE FOR PT. CM WAITING ON PHYSICIANS TO DETERMINE IF PT CAN EFFECTIVELY TREAT WITH ANOTHER IV MEDICATION THAT WOULD ALLOW FOR OUTPATIENT IV DAILY AT OUTPATIENT CENTER. aKne Bland, CASE MANAGEMENT DCP- Discharge Planning Updated by [id number]: Kane Bland on 07/16/19 9:[address] Patient Name: THELMA CARLSON Encounter No: [id number] : 1975 Primary Insurance: UNINSURED DISCOUNT PLAN Anticipated DC Date: Planned Disposition: Home with Home Health External Planned Provider: TO BE DETERMINED DCP follow-up note: DORA ASKED ELIZABETH BABB OF [facility] IF SHE HAS A SKILLED FACILITY THAT MIGHT CONSIDER PT FOR LAKESHA CARE. ELIZABETH ADVISED THAT SHE DOES NOT AND THAT THEY WOULD NOT DO IV NAFCILLIN. DORA ASKED [facility] IF SHE HAS A SKILLED FACILITY THAT MIGHT CONSIDER PT FOR LAKESHA CARE, SHE REPLIED THAT IT WOULD BE A "LONGSHOT" BUT SHE WILL CHECK. DORA SPOKE TO PALOMA OF [employer] [place], RICH OF [facility] AND [facility] OF [facility], ASKING IF ANY OF THEM WOULD CONSIDER PT FOR CHAIRTY HOME HEALTH INFUSION MANAGEMENT AND PHYSICAL THERAPY. ALL WILL CHECK AND LET CM KNOW. DORA CALLED AND SPOKE TO [employer], , OBTAINED QUOTE FOR NAFCILLIN 2GM, Q4 HOURS: $173.31 PER DAY, IT WOULD NEED PUMP AND HOME HEALTH. PT WOULD BE REQUIRED TO MAKE FIRST PAYMENT ON PAYMENT PLAN. CM CALLED [facility], , SPOKE TO SWETA WHO WILL WORK UP QUOTE AND CALL CM BACK. CM CONTINUES TO WORK ON POSSIBLE DISCHARGE OPTIONS. KANE BLAND, CASE MANAGEMENT Kane Bland DCP- Discharge Planning Updated by [id number]: Kane Bland on 07/15/19 4:[address] Patient Name: THELMA CARLSON Encounter No: [id number] : 1975 Primary Insurance: UNINSURED DISCOUNT PLAN Anticipated DC Date: Planned Disposition: Home with Home Health External Planned Provider: TO BE DETERMINED DCP follow-up note: CM MET WITH PT AND SPOUSE IN ROOM TO DISCUSS DISCHARGE NEEDS AND PLANNING. PT GAVE PERMISSION TO DISCUSS HER PLANNING AND CARE WITH SPOUSE. CM DISCUSSED AVAILABILITY OF HOME HEALTH, REHAB SERVICES AND MEDICAL EQUIPMENT. PT HAS NO INSURANCE, SPOUSE REPORTS THEY ARE OVER INCOME FOR MEDICAID. PT WAS WORKING PRIOR TO GETTING SICK. PT DOES NOT WANT TO GO TO PRISON CARE IN [place], EVEN IF MEDICAID PAID FOR IT. PT WOULD PREFER TO GO HOME WITH HOME HEALTH. PT'S SPOUSE REPORTS PT WILL NEED IV ANTIBIOTICS, ASKED IF HOME HEALTH AND INFUSION COMPANY WOULD WORK OUT PAYMENT PLAN. CHOICE SIGNED FOR ANY HOME HEALTH COMPANY AND INFUSION COMPANY, WITH REFUSAL OF NURSING FACILITY. SPOUSE PLANS TO TRANSPORT HOME AT DISCHARGE. PT STATES SHE WAS ABLE TO STAND WITH THERAPY TODAY AND IS PROGRESSING. PT NOW ON 4 1/2 LITERS OXYGEN. PT'S SPOUSE REPORTS HE CAN HAVE A FRIEND STAY WITH PT WHEN HE IS AT WORK TO ENSURE PT HAS 24 HOUR CARE AT HOME. THEY HAVE PURCHASED A WHEELCHAIR, ROLLATOR WALKER AND BEDSIDE COMMODE FOR HOME USE. PT REFUSED LONGTERM FACILITY PLACEMENT. PT WANTS TO GO HOME WITH HOME HEALTH AND HOME INFUSION, SPOUSE WOULD LIKE PRICES AND TO KNOW IF PAYMENT PLANS WOULD BE AVAILABLE. CM TO CALL AND ASK HOME HEALTH SOON POSSIBLE REGARDING OPTIONS. Kane Bland, CASE MANAGEMENT DCP- Discharge Planning Updated by [id number]: Samra Torrez on 07/03/19 3:[address] Patient Name: THELMA CARLSON Admission Status: ER Accout number: [id number] Admission Date: 07-02-2019 : 1975 Admission Diagnosis: Attending: RISSA CONNOLLY Current LOS: 1 Anticipated DC Date: Planned Disposition: Primary Insurance: UNINSURED DISCOUNT PLAN Discharge Planning Comments: CM MET WITH PATIENT'S ABE. PATIENT IS CURRENTLY ON A VENTILATOR. SPOUSE STATES UNSURE OF PLAN AT THIS TIME. STATES SHE HAS A HISTORY OF ASTHMA AND MAY NEED A NUBULIZER, STATES NO INSURANCE SO SHE MAY NEED HELP GETTING WHAT SHE NEEDS. HE STATED ABE FROM MED [facility] MET WITH HIM TODAY ABOUT MEDICAID. CM TO FOLLOW AND ASSIST. Oven Operator Automatic: Samra Torrez DCPIA - Discharge Planning Initial Assessment Updated by [id number]: Samra Torrez on 07/03/19 4:27 pm * PCP CONVENIENT CARE * Preadmission Environment Home with Family * ADLs Independent * List name and contact numbers for known caregivers / representatives who currently or will assist patient after discharge: ABE,, * Has this patient been hospitalized within the prior 30 days at any hospital? No Coverage Notice Reviewer: [id number] Loren Bland Notice Issued Date-Time: 07/15/2019 16:35 Notice Type: Patient Choice Letter Notice Delivered To: Patient Relationship to Patient: Machine Tank Operator Name: Delivery Method: HAND - Hand Delivered Alyx Days: Prior Verbal Notification: Recipient Understood Notice: Yes Recipient Signature: Yes Med Rec Note Co-signed by Attending: Coverage Notice Comment: NO HOME HEALTH PREFERENCE NO INFUSION COMPANY PREFERENCE REFUSAL OF [place] PLACEMENT Last DP export: 07/25/19 4:11 p Patient Name: THELMA CARLSON Page 91540 at 1641 All edits/amendments must be made on the electronic document DICTATION DATE: 07/30/19 1640 CHAPTER RELATIONS ADMINISTRATOR: GAVIN 07/30/19 1640 RPT#: [id number] DC DATE: STATUS: ADM IN [facility] [address] [place] [address] END OF REPORT
--- NOTE | 2019-07-30 16:52 | MORECARE ---
CASE MANAGEMENT DISCHARGE SUMMARY PATIENT: THELMA CARLSON UNIT: [id number] ADM DATE: 07/02/19 AGE: 43 : 75 SEX: F ROOM/BED: D.2140 AUTHOR: DAMIAN,DOC PHYSICIAN: REFERRING PHYSICIAN: RISSA RUSSO MD DATE OF SERVICE: 07/30/19 Discharge Plan Patient Name: THELMA CARLSON Facility: [facility]:[place] : 1975 Planned Disposition: Outpatient clinics\\services (Programs) Anticipated Discharge Date: 07/31/19 Discharge Date: Expected LOS: 29 Initial Reviewer: [id number] Initial Review Date: 07/03/2019 Generated: 07/30/19 5:51 pm Comments DCP- Discharge Planning Updated by [id number]: Kane Bland on 07/30/19 3:[address] Patient Name: THELMA CARLSON Encounter No: [id number] : 1975 Primary Insurance: UNINSURED DISCOUNT PLAN Anticipated DC Date: 07-31-2019 Planned Disposition: Outpatient clinics\\services (Programs) External Planned Provider: [facility] DCP follow-up note: CM MET WITH PT IN ROOM TO DISCUSS DISCHARGE PLANNING AND NEEDS. PT REPORTS THEY HAVE MADE ARRANGEMENTS TO PRIVATE PAY FOR OUTPATIENT THERAPY WITH [facility] ON [address] [place] AT [facility] ( [phone]). PT'S SPOUSE AND FAMILY ARE ARRANGING MEDICAL EQUIPMENT AT HOME AND ARE UTILIZING THE [facility] CLOSET MUCH POSSIBLE. PT REPORTS PLAN TO DISCHARGE HOME WITH SPOUSE TOMORROW AND DENIES NEEDS FOR DISCHARGE AT THIS TIME. CM PROVIDED PT WITH ORDER FOR OUTPATIENT THERAPY SERVICES TO PROVIDE TO THERAPY SERVICE OF HER CHOICE. CM TO FOLLOW AND ASSIST IF NEEDED. Kane Bland, CASE MANAGEMENT DCP- Discharge Planning Updated by [id number]: Philomena Huynh on 07/25/19 4:[address] Patient Name: THELMA CARLSON Encounter No: [id number] : 1975 Primary Insurance: UNINSURED DISCOUNT PLAN Anticipated DC Date: Planned Disposition: Outpatient clinics\\services (Programs) External Planned Provider: : DCP follow-up note: CM spoke with family about the possibility of requiring 02 at home post dc. CM spoke with Yuli at [facility] and provided a cole of 172.65 for 24 hours and 115 for hs. Patient stated she could afford oxygen if needed. Dr Truong provided voucher for bipap. LIZ signed for [facility]. CM will continue to follow. Philomena Huynh MSN, RN, CM DCP- Discharge Planning Updated by [id number]: Kane Bland on 07/16/19 3:[address] Patient Name: THELMA CARLSON Encounter No: [id number] : 1975 Primary Insurance: UNINSURED DISCOUNT PLAN Anticipated DC Date: Planned Disposition: Outpatient clinics\\services (Programs) External Planned Provider: [facility] OUT[facility]IENT DCP follow-up note: CM DISCUSSED PT'S DISCHARGE PLAN WITH MULTIDISCIPLINARY TEAM MEETING. PT REPORTS NOT HAVING PRIMARY DOCTOR FOR HOME HEALTH, HAS BEEN SEEING WALK IN CLINIC WHEN NEEDED. PT'S SPOUSE REPORTED THEY ARE OVER INCOME FOR MEDICAID. FAMILY REPORTING ABILITY TO CARE FOR PT AT HOME IF THEY COULD HAVE HOME HEALTH. CM HAS CALLED [facility], THE COSTS OF NAFCILLIN 2GM Q4 HOURS FOR 4 WEEKS IS $163.50 TO &173.31 PER DAY. [facility] AND [facility] HAVE DECLINED LAKESHA CARE, CARE IV IS STILL EVALUATING. YOLI SMITH WILL DISCUSS POSSIBILITY OF OTHER IV MEDICATIONS THAT MAY BE JUST EFFECTIVE THAT MAY ALLOW FOR OUTPATIENT INFUSION DAILY AT OUTPATIENT CENTER. CM RECEIVED MESSAGE FROM [facility], SHE HAS NON PROFIT HOMES THAT MAY CONSIDER FOR REHAB AND ANTIBIOTICS. CM MET WITH PTI AND DISCUSSED OPTIONS WITH PT. PT EXCITED THAT SHE STOOD WITH THERAPY "ALMOST BY MYSELF" TODAY. 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 PT IS HOPEFUL TO GO HOME AND DOES THINK THAT THEY CAN GET PT TO AND FROM INFUSION DAILY AT HOSPITAL. PT ALSO WILLING TO EXPLORE RESIDENTIAL IF SHE COULD GET ANTIBIOTICS AND THERAPY AT NO COSTS. ALEAH SIGNED FOR [facility]. CM FAXED REFERRAL TO [facility], . [facility] WILL CONTINUE TO EXPLORE LAKESHA RESIDENTIAL CARE FOR PT. CM WAITING ON PHYSICIANS TO DETERMINE IF PT CAN EFFECTIVELY TREAT WITH ANOTHER IV MEDICATION THAT WOULD ALLOW FOR OUTPATIENT IV DAILY AT OUTPATIENT CENTER. ANURAG De Santiago MANAGEMENT DCP- Discharge Planning Updated by [id number]: Kane Bland on 07/16/19 9:[address] Patient Name: THELMA CARLSON Encounter No: [id number] : 1975 Primary Insurance: UNINSURED DISCOUNT PLAN Anticipated DC Date: Planned Disposition: Home with Home Health External Planned Provider: TO BE DETERMINED DCP follow-up note: CM ASKED ELIZABETH BABB OF [facility] IF SHE HAS A SKILLED FACILITY THAT MIGHT CONSIDER PT FOR LAKESHA CARE. ELIZABETH ADVISED THAT SHE DOES NOT AND THAT THEY WOULD NOT DO IV NAFCILLIN. CM ASKED EFRAIN OF [facility] IF SHE HAS A SKILLED FACILITY THAT MIGHT CONSIDER PT FOR LAKESHA CARE, SHE REPLIED THAT IT WOULD BE A "LONGSHOT" BUT SHE WILL CHECK. CM SPOKE TO PALOMA OF [employer] [facility], RICH OF [facility] AND [facility], ASKING IF ANY OF THEM WOULD CONSIDER PT FOR [facility] INFUSION MANAGEMENT AND PHYSICAL THERAPY. ALL WILL CHECK AND LET CM KNOW. CM CALLED AND SPOKE TO [facility], , OBTAINED QUOTE FOR NAFCILLIN 2GM, Q4 HOURS: $173.31 PER DAY, IT WOULD NEED PUMP AND HOME HEALTH. PT WOULD BE REQUIRED TO MAKE FIRST PAYMENT ON PAYMENT PLAN. CM CALLED [facility], , SPOKE TO SWETA WHO WILL WORK UP QUOTE AND CALL CM BACK. CM CONTINUES TO WORK ON POSSIBLE DISCHARGE OPTIONS. KANE BLAND, CASE MANAGEMENT Kane Bland DCP- Discharge Planning Updated by [id number]: Kane Bland on 07/15/19 4:[address] Patient Name: THELMA CARLSON Encounter No: [id number] : 1975 Primary Insurance: UNINSURED DISCOUNT PLAN Anticipated DC Date: Planned Disposition: Home with Home Health External Planned Provider: TO BE DETERMINED DCP follow-up note: CM MET WITH PT AND SPOUSE IN ROOM TO DISCUSS DISCHARGE NEEDS AND PLANNING. PT GAVE PERMISSION TO DISCUSS HER PLANNING AND CARE WITH SPOUSE. CM DISCUSSED AVAILABILITY OF HOME HEALTH, REHAB SERVICES AND MEDICAL EQUIPMENT. PT HAS NO INSURANCE, SPOUSE REPORTS THEY ARE OVER INCOME FOR MEDICAID. PT WAS WORKING PRIOR TO GETTING SICK. 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 PT WOULD PREFER TO GO HOME WITH HOME HEALTH. PT'S SPOUSE REPORTS PT WILL NEED IV ANTIBIOTICS, ASKED IF HOME HEALTH AND INFUSION COMPANY WOULD WORK OUT PAYMENT PLAN. CHOICE SIGNED FOR ANY HOME HEALTH COMPANY AND INFUSION COMPANY, WITH REFUSAL OF NURSING FACILITY. SPOUSE PLANS TO TRANSPORT HOME AT DISCHARGE. PT STATES SHE WAS ABLE TO STAND WITH THERAPY TODAY AND IS PROGRESSING. PT NOW ON 4 1/2 LITERS OXYGEN. PT'S SPOUSE REPORTS HE CAN HAVE A FRIEND STAY WITH PT WHEN HE IS AT WORK TO ENSURE PT HAS 24 HOUR CARE AT HOME. THEY HAVE PURCHASED A WHEELCHAIR, ROLLATOR WALKER AND BEDSIDE COMMODE FOR HOME USE. PT REFUSED SHELTER FACILITY PLACEMENT. PT WANTS TO GO HOME WITH HOME HEALTH AND HOME INFUSION, SPOUSE WOULD LIKE PRICES AND TO KNOW IF PAYMENT PLANS WOULD BE AVAILABLE. CM TO CALL AND ASK HOME HEALTH SOON POSSIBLE REGARDING OPTIONS. Kane Bland, CASE MANAGEMENT DCP- Discharge Planning Updated by [id number]: Samra Torrez on 07/03/19 3:[address] Patient Name: THELMA CARLSON Admission Status: ER Accout number: [id number] Admission Date: 07-02-2019 : 1975 Admission Diagnosis: Attending: RISSA CONNOLLY Current LOS: 1 Anticipated DC Date: Planned Disposition: Primary Insurance: UNINSURED DISCOUNT PLAN Discharge Planning Comments: CM MET WITH PATIENT'S ABE. PATIENT IS CURRENTLY ON A VENTILATOR. SPOUSE STATES UNSURE OF PLAN AT THIS TIME. STATES SHE HAS A HISTORY OF ASTHMA AND MAY NEED A NUBULIZER, STATES NO INSURANCE SO SHE MAY NEED HELP GETTING WHAT SHE NEEDS. HE STATED ABE FROM [employer] MET WITH HIM TODAY ABOUT MEDICAID. CM TO FOLLOW AND ASSIST. Cable Armorer: Samra Torrez DCPIA - Discharge Planning Initial Assessment Updated by [id number]: Samra Torerz on 07/03/19 4:27 pm * PCP CONVENIENT CARE * Preadmission Environment Home with Family * ADLs Independent * List name and contact numbers for known caregivers / representatives who currently or will assist patient after discharge: ABE,, * Has this patient been hospitalized within the prior 30 days at any hospital? No Coverage Notice Reviewer: [id number] - Kane Bland Notice Issued Date-Time: 07/15/2019 16:35 Notice Type: Patient Choice Letter Notice Delivered To: Patient Relationship to Patient: Adjunct Faculty Mathematics Department Name: Delivery Method: HAND - Hand Delivered Alyx Days: Prior Verbal Notification: Recipient Understood Notice: Yes Recipient Signature: Yes Med Rec Note Co-signed by Attending: Coverage Notice Comment: NO HOME HEALTH PREFERENCE NO INFUSION COMPANY PREFERENCE REFUSAL OF RESIDENTIAL PLACEMENT Last DP export: 07/30/19 3:41 pm Patient Name: THELMA CARLSON Page [phone] at 1652 All edits/amendments must be made on the electronic document DICTATION DATE: 07/30/191650 [employer] MANAGEMENT OFFICER: GAVIN 07/30/191650 RPT#: [id number] DC DATE: STATUS: ADM IN [facility] [address] [place] [address] END OF REPORT
[2019-07-30] MEDS ORDERED: HYDRALAZINE HCL50 MG PO (17:45)
[2019-07-30] MEDS ORDERED: AMIODARONE HCL200 MG PO (17:45)
[2019-07-30] MEDS ORDERED: PROCARDIA10 MG PO (17:46)
[2019-07-30] MEDS ORDERED: METOPROLOL TART50 MG NG (17:46)
[2019-07-30] MEDS ORDERED: OXYBUTYNIN CHLOR5 MG PO (17:48)
[2019-07-30] MEDS ORDERED: PREDNISONE10 MG PO (17:49)
--- NOTE | 2019-07-30 18:06 | NUR ---
OT NOTE: PT COMPLETED BED MOB WITH MAX A. PT COMPLETED SUPINE TO SIT WITH MAX A. PT REQUIRED SBA WITH STATIC EOB SITTING BALANCE. PT COMPLETED ADL MOB WITH RW MOD A. PT COMPLETED BUE AROM ACTIVITY WITH WALKER MANAGEMENT. [phone] THANK YOU,WANG PATTERSON
--- NOTE | 2019-07-30 21:15 | NUR ---
EVENING ROUNDS COMPLETED. PT AAOX4, AFVSS, NO S/S OF RT DISTRESS. PT ON 1L HF. CPAP @ BEDSIDE. UPPER ARM PICC PATENT, C/D/I. FSBS 323. TREATED PER SLIDING SCALE. 1ST STEP OVERLAY IN PLACE. ASSIST PT UP TO BEDISDE COMODE AND BACK IN BED. PT HAD A BM. PT DENIES ANY FURTHER NEEDS AT THIS TIME. WILL CPOC. CL WITHIN REACH. LORAZEPAM PRN GIVEN FOR ANXIETY.
[2019-07-30 21:17] VITALS: BP 126/77
[2019-07-31 00:26] VITALS: BP 134/79
[2019-07-31 05:13] LABS: BASOPHILS 0.1 % (0-2); EOSINOPHILS 3.6 % (0-7); HEMATOCRIT 26.8 % (36.0-48.0); HEMOGLOBIN 8.5 g/dL (12-16); IMMATURE GRANULOCYTES 0.9 % (0-5); LYMPHOCYTES 11.3 % (15-50); MCH 28.4 pg (26.0-34.0); MCHC 31.7 g/dL (31.0-37.0); MCV 89.6 fL (80.0-100.0); MEAN PLATELET VOLUME 9.9 fL (7.4-10.4); MONOCYTES 12.2 % (2-11); NEUTROPHILS 71.9 % (40-80); PLATELET COUNT 249 10x3/uL (130-400); RBC 2.99 10x6/uL (4.00-5.40); WBC 7.4 10x3/uL (4.8-10.8)
[2019-07-31 05:45] LABS: ANION GAP 13.4 mmol/L (8-16); CALCIUM 8.2 mg/dL (8.5-10.1); CARBON DIOXIDE 24.5 mmol/L (21.0-32.0); CREATININE - SERUM 1.9 mg/dL (0.6-1.3); POTASSIUM - SERUM 3.9 mmol/L (3.5-5.1)
[2019-07-31 06:00] VITALS: BP 152/90
--- NOTE | 2019-07-31 08:08 | NUR ---
PATIENT IS ALERT AND ORIENTED. DENIES ANY NEEDS AT THIS TIME. WE GOT HER UP TO THE BSC WITH TWO PERSON ASSIST.
[2019-07-31 11:29] VITALS: BP 155/82
--- NOTE | 2019-07-31 14:10 | NUR ---
DISCHARGE TEACHING COMPLETE AND PAPERS SIGNED. PATIENT IS READY TO GO AND HER FAMILY IS AT BEDSIDE TO GIVE HER A RIDE HOME. JARON LANG IS PULLING PATIENT PICC LINE AT THIS TIME.
--- NOTE | 2019-07-31 14:21 | NUR ---
LEFT UPPER PICC REMOVED PER PROTOCOL USING STERILE TECHNIQUE.
--- NOTE | 2019-07-31 17:24 | NUR ---
PATIENT HAS BEEN DISCHARGED. SHE WENT DOWNSTAIRS BY WHEEL CHAIR AND HER FAMILY BROUGHT HER HOME. ALL PATIENT BELONGINGS WENT HOME WITH THE PATIENT.
--- NOTE | 2019-08-01 10:10 | MORECARE ---
CASE MANAGEMENT DISCHARGE SUMMARY PATIENT: THELMA CARLSON UNIT: [id number] ADM DATE: 07/02/19 AGE: 43 : 75 SEX: F ROOM/BED: D.2140 AUTHOR: DAMIAN,DOC PHYSICIAN: REFERRING PHYSICIAN: RISSA RUSSO MD DATE OF SERVICE: 08/01/19 Discharge Plan Patient Name: THELMA CARLSON Facility: [facility]:[place] : 1975 Planned Disposition: Outpatient clinics\\services (Programs) Anticipated Discharge Date: 07/31/19 Discharge Date: 07/31/2019 Expected LOS: 29 Initial Reviewer: [id number] Initial Review Date: 07/03/2019 Generated: 08/01/19 11:09 am Comments DCP- Discharge Planning Updated by [id number]: Kane Bland on 07/30/19 3:[address] Patient Name: THELMA CARLSON Encounter No: [id number] : 1975 Primary Insurance: UNINSURED DISCOUNT PLAN Anticipated DC Date: 07-31-2019 Planned Disposition: Outpatient clinics\\services (Programs) External Planned Provider: [facility] DCP follow-up note: CM MET WITH PT IN ROOM TO DISCUSS DISCHARGE PLANNING AND NEEDS. PT REPORTS THEY HAVE MADE ARRANGEMENTS TO PRIVATE PAY FOR OUTPATIENT THERAPY WITH [facility] ON [address] [place] [address] AT [facility] ( [phone]). PT'S SPOUSE AND FAMILY ARE ARRANGING MEDICAL EQUIPMENT AT HOME AND ARE UTILIZING THE [facility] CLOSET MUCH POSSIBLE. PT REPORTS PLAN TO DISCHARGE HOME WITH SPOUSE TOMORROW AND DENIES NEEDS FOR DISCHARGE AT THIS TIME. CM PROVIDED PT WITH ORDER FOR OUTPATIENT THERAPY SERVICES TO PROVIDE TO THERAPY SERVICE OF HER CHOICE. CM TO FOLLOW AND ASSIST IF NEEDED. Kane Bland, CASE MANAGEMENT DCP- Discharge Planning Updated by [id number]: Philomena Huynh on 07/25/19 4:[address] Patient Name: THELMA CARLSON Encounter No: [id number] : 1975 Primary Insurance: UNINSURED DISCOUNT PLAN Anticipated DC Date: Planned Disposition: Outpatient clinics\\services (Programs) External Planned Provider: : DCP follow-up note: CM spoke with family about the possibility of requiring 02 at home post dc. CM spoke with Yuli at [facility] and provided a cole of 172.65 for 24 hours and 115 for hs. Patient stated she could afford oxygen if needed. Dr Truong provided voucher for bipap. LIZ signed for [facility]. CM will continue to follow. Philomena MARQUIS, RN, CM DCP- Discharge Planning Updated by [id number]: Kane Bland on 07/16/19 3:[address] Patient Name: THELMA CARLSON Encounter No: [id number] : 1975 Primary Insurance: UNINSURED DISCOUNT PLAN Anticipated DC Date: Planned Disposition: Outpatient clinics\\services (Programs) External Planned Provider: [facility] OUTPATIENT DCP follow-up note: CM DISCUSSED PT'S DISCHARGE PLAN WITH MULTIDISCIPLINARY TEAM MEETING. PT REPORTS NOT HAVING PRIMARY DOCTOR FOR HOME HEALTH, HAS BEEN SEEING WALK IN CLINIC WHEN NEEDED. PT'S SPOUSE REPORTED THEY ARE OVER INCOME FOR MEDICAID. FAMILY REPORTING ABILITY TO CARE FOR PT AT HOME IF THEY COULD HAVE HOME HEALTH. CM HAS CALLED [facility], THE COSTS OF NAFCILLIN 2GM Q4 HOURS FOR 4 WEEKS IS $163.50 TO &173.31 PER DAY. [facility] AND [facility] HAVE DECLINED LAKESHA CARE, CARE IV IS STILL EVALUATING. YOLI SMITH WILL DISCUSS POSSIBILITY OF OTHER IV MEDICATIONS THAT MAY BE JUST EFFECTIVE THAT MAY ALLOW FOR OUTPATIENT INFUSION DAILY AT OUTPATIENT CENTER. CM RECEIVED MESSAGE FROM [facility], SHE HAS NON PROFIT HOMES THAT MAY CONSIDER FOR REHAB AND ANTIBIOTICS. CM MET WITH PTI AND DISCUSSED OPTIONS WITH PT. PT EXCITED THAT SHE STOOD WITH THERAPY "ALMOST BY MYSELF" TODAY. 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 PT IS HOPEFUL TO GO HOME AND DOES THINK THAT THEY CAN GET PT TO AND FROM INFUSION DAILY AT HOSPITAL. PT ALSO WILLING TO EXPLORE ASSISTED IF SHE COULD GET ANTIBIOTICS AND THERAPY AT NO COSTS. CHOICE SIGNED FOR [facility]. CM FAXED REFERRAL TO [facility], . [facility] WILL CONTINUE TO EXPLORE LAKESHA ASSISTED CARE FOR PT. CM WAITING ON PHYSICIANS TO DETERMINE IF PT CAN EFFECTIVELY TREAT WITH ANOTHER IV MEDICATION THAT WOULD ALLOW FOR OUTPATIENT IV DAILY AT OUTPATIENT CENTER. ANURAG De Santiago MANAGEMENT DCP- Discharge Planning Updated by [id number]: Kane Bland on 07/16/19 9:[address] Patient Name: THELMA CARLSON Encounter No: [id number] : 1975 Primary Insurance: UNINSURED DISCOUNT PLAN Anticipated DC Date: Planned Disposition: Home with Home Health External Planned Provider: TO BE DETERMINED DCP follow-up note: CM ASKED ELIZABETH BABB OF [facility] IF SHE HAS A SKILLED FACILITY THAT MIGHT CONSIDER PT FOR LAKESHA CARE. ELIZABETH ADVISED THAT SHE DOES NOT AND THAT THEY WOULD NOT DO IV NAFCILLIN. CM ASKED EFRAIN OF [facility] IF SHE HAS A SKILLED FACILITY THAT MIGHT CONSIDER PT FOR LAKESHA CARE, SHE REPLIED THAT IT WOULD BE A "LONGSHOT" BUT SHE WILL CHECK. CM SPOKE TO PALOMA OF [employer] [facility], RICH OF [facility] AND [facility] OF [facility], ASKING IF ANY OF THEM WOULD CONSIDER PT FOR [facility] INFUSION MANAGEMENT AND PHYSICAL THERAPY. ALL WILL CHECK AND LET CM KNOW. CM CALLED AND SPOKE TO [facility], , OBTAINED QUOTE FOR NAFCILLIN 2GM, Q4 HOURS: $173.31 PER DAY, IT WOULD NEED PUMP AND HOME HEALTH. PT WOULD BE REQUIRED TO MAKE FIRST PAYMENT ON PAYMENT PLAN. CM CALLED [facility], , SPOKE TO SWETA WHO WILL WORK UP QUOTE AND CALL CM BACK. CM CONTINUES TO WORK ON POSSIBLE DISCHARGE OPTIONS. KANE BLAND, CASE MANAGEMENT Kane Bland DCP- Discharge Planning Updated by [id number]: Kane Bland on 07/15/19 4:[address] Patient Name: THELMA CARLSON Encounter No: [id number] : 1975 Primary Insurance: UNINSURED DISCOUNT PLAN Anticipated DC Date: Planned Disposition: Home with Home Health External Planned Provider: TO BE DETERMINED DCP follow-up note: CM MET WITH PT AND SPOUSE IN ROOM TO DISCUSS DISCHARGE NEEDS AND PLANNING. PT GAVE PERMISSION TO DISCUSS HER PLANNING AND CARE WITH SPOUSE. CM DISCUSSED AVAILABILITY OF HOME HEALTH, REHAB SERVICES AND MEDICAL EQUIPMENT. PT HAS NO INSURANCE, SPOUSE REPORTS THEY ARE OVER INCOME FOR MEDICAID. PT WAS WORKING PRIOR TO GETTING SICK. PT DOES NOT WANT TO GO TO [facility] IN ASSISTED, EVEN IF MEDICAID PAID FOR IT. PT WOULD PREFER TO GO HOME WITH HOME HEALTH. PT'S SPOUSE REPORTS PT WILL NEED IV ANTIBIOTICS, ASKED IF HOME HEALTH AND INFUSION COMPANY WOULD WORK OUT PAYMENT PLAN. CHOICE SIGNED FOR ANY HOME HEALTH COMPANY AND INFUSION COMPANY, WITH REFUSAL OF NURSING FACILITY. SPOUSE PLANS TO TRANSPORT HOME AT DISCHARGE. PT STATES SHE WAS ABLE TO STAND WITH THERAPY TODAY AND IS PROGRESSING. PT NOW ON 4 1/2 LITERS OXYGEN. PT'S SPOUSE REPORTS HE CAN HAVE A FRIEND STAY WITH PT WHEN HE IS AT WORK TO ENSURE PT HAS 24 HOUR CARE AT HOME. THEY HAVE PURCHASED A WHEELCHAIR, ROLLATOR WALKER AND BEDSIDE COMMODE FOR HOME USE. PT REFUSED SENIOR LIVING FACILITY PLACEMENT. PT WANTS TO GO HOME WITH HOME HEALTH AND HOME INFUSION, SPOUSE WOULD LIKE PRICES AND TO KNOW IF PAYMENT PLANS WOULD BE AVAILABLE. CM TO CALL AND ASK HOME HEALTH SOON POSSIBLE REGARDING OPTIONS. Kane Bland, CASE MANAGEMENT DCP- Discharge Planning Updated by [id number]: Samra Torrez on 07/03/19 3:[address] Patient Name: THELMA CARLSON Admission Status: ER Accout number: [id number] Admission Date: 07-02-2019 : 1975 Admission Diagnosis: Attending: RISSA CONNOLLY Current LOS: 1 Anticipated DC Date: Planned Disposition: Primary Insurance: UNINSURED DISCOUNT PLAN Discharge Planning Comments: CM MET WITH PATIENT'S ABE. PATIENT IS CURRENTLY ON A VENTILATOR. SPOUSE STATES UNSURE OF PLAN AT THIS TIME. STATES SHE HAS A HISTORY OF ASTHMA AND MAY NEED A NUBULIZER, STATES NO INSURANCE SO SHE MAY NEED HELP GETTING WHAT SHE NEEDS. HE STATED ABE FROM [employer] MET WITH HIM TODAY ABOUT MEDICAID. CM TO FOLLOW AND ASSIST. Manager Meat: Samra Torrez DCPIA - Discharge Planning Initial Assessment Updated by [id number]: Samra Torrez on 07/03/19 4:27 pm * PCP CONVENIENT CARE * Preadmission Environment Home with Family * ADLs Independent * List name and contact numbers for known caregivers / representatives who currently or will assist patient after discharge: ABE,, * Has this patient been hospitalized within the prior 30 days at any hospital? No Coverage Notice Reviewer: [id number] - Kane Bland Notice Issued Date-Time: 07/15/2019 16:35 Notice Type: Patient Choice Letter Notice Delivered To: Patient Relationship to Patient: Yoga Instructor Name: Delivery Method: HAND - Hand Delivered Alyx Days: Prior Verbal Notification: Recipient Understood Notice: Yes Recipient Signature: Yes Med Rec Note Co-signed by Attending: Coverage Notice Comment: NO HOME HEALTH PREFERENCE NO INFUSION COMPANY PREFERENCE REFUSAL OF ASSISTED PLACEMENT Last DP export: 07/30/19 3:51 pm Patient Name: THELMA CARLSON Page 42382 at 1010 All edits/amendments must be made on the electronic document DICTATION DATE: 08/01/19 100 HARVEST FIELD TICKETER: GAVIN 08/01/19 1009 RPT#: [id number] DC DATE:07/31/19 STATUS: DIS IN [facility] [address] [place] [address] END OF REPORT
== END 2019-07-31 17:25 | disposition home or self-care (01) | DRG 870 ==
LOC: D.ER 17:57 → D.M2 19:47 → D.ICU 19:47 → D.M2 07-13 06:01 → D.ICU 07-17 15:05 → D.M2 07-22 18:06
PROVIDERS: Family Medicine; Internal Medicine Nephrology; Internal Medicine Pulmonary Disease; ADMIT Family Medicine Adult Medicine; ATTEND Family Medicine Adult Medicine
PROC: 5A1955Z Respiratory Ventilation, Greater than 96 Consecutive Hours (ICD-10-PCS; principal; 2019-07-02)
PROC: 0BH17EZ Insertion of Endotracheal Airway into Trachea, Via Natural or Artificial Opening (ICD-10-PCS; 2019-07-02)
PROC: 05HY33Z Insertion of Infusion Device into Upper Vein, Percutaneous Approach (ICD-10-PCS; 2019-07-03)
PROC: 05HY33Z Insertion of Infusion Device into Upper Vein, Percutaneous Approach (ICD-10-PCS; 2019-07-16)
DX: A41.9 Sepsis, unspecified organism (principal); J96.01 Acute respiratory failure with hypoxia; E11.10 Type 2 diabetes mellitus with ketoacidosis without coma; R65.21 Severe sepsis with septic shock; J96.02 Acute respiratory failure with hypercapnia; I50.23 Acute on chronic systolic (congestive) heart failure; N17.0 Acute kidney failure with tubular necrosis; J15.211 Pneumonia due to Methicillin susceptible Staphylococcus aureus; I47.1 Supraventricular tachycardia; E87.2 Acidosis; E87.1 Hypo-osmolality and hyponatremia; E66.01 Morbid (severe) obesity due to excess calories; E87.6 Hypokalemia; E83.42 Hypomagnesemia; I11.0 Hypertensive heart disease with heart failure; J45.909 Unspecified asthma, uncomplicated; D64.9 Anemia, unspecified; R53.81 Other malaise

== ENCOUNTER → 2020-07-29 08:56 | Outpatient (CLI) | payer OTHER ==
[2019-07-07 08:26] VITALS: BMI 39.5
--- NOTE | ~2020-07-29 | EC ---
PATIENT:THELMA CARLSON DATE OF SERVICE: 07/29/20 SEX: F MEDICAL RECORD: [id number] DATE OF : [birth year] [facility] AGE OF PATIENT: 44 ADMISSION DATE: 07/29/20 REFERRING PHYSICIAN: INTERPRETING PHYSICIAN: WALKER CHOWDARY MD ECHOCARDIOGRAM REPORT ECHO CHARGES 4 ECHO COMPLETE Date: 07/29/20 CLINICAL DIAGNOSIS: ASSESS AORITC STENOSIS/MITRAL AND TRICUSPID REGURG, HX OF SVT ECHOCARDIOGRAPHIC MEASUREMENTS (adult normal given) AC root (d.<3.7cm) 2.9 cm LV Septum d (<1.2 cm> 1.0 cm Valve Excursion 1.5 cm LV Septum (systole) 1.3 cm Left Atria (s.<4.0cm> 4.3 cm LVPW d(<1.2cm) 1.3 cm RV (d.<2.3cm) 3.8 cm LVPW (sytole) 1.5 cm LV diastole(<5.6CM) 5.8 cm MV E-F(>70mm/sec) cm LV systole 3.7 cm LVOT Diameter 1.7 cm MV exc.(>10mm) 1.3 cm Est.ejection fraction (50-75%) % DOPPLER: LVIT cm/sec A 86.0 cm/sec E 134.0 cm/sec LA cm/sec RVSP 35 mmHg LVOT 134 cm/sec AOP1/2T m/s Asc. Ao 226 cm/sec RVOT 80 cm/sec RA cm/sec PA 115 cm/sec AV Gradient Peak 20.47mmHg AV Mean 9.08 mmHg AV Area 1.6 cm MV Gradient Peak 9.02 mmHg MV Mean 2.44 mmHg MV Area cm COMMENTS: Plant Operator: 2 DELMY WATTERS Lamp Shade Assembler: 3 Dr. Bond TAPE# PACS Pericardial Effusion N DATE OF SERVICE: Adequate 2D, color flow imaging, spectral Doppler, and M-Mode. No LVH. LV internal dimensions are normal. Wall motion normal. EF greater than or equal to 55%. Aortic valve is tricuspid. There is restriction of leaflet motion. Peak gradient of 20 mmHg putting this in mild range. Mild AI is present as well. Left atrium is mildly dilated at 4.3 cm. Mitral valve shows no prolapse. Mild MR. Right-sided chambers are grossly normal. Trace ECHOCARDIOGRAM REPORT [id number] THELMA CARLSON TRANSINT:[id number] Voice Confirmation ID: [id number] DOCUMENT ID: [id number] WALKER CHOWDARY MD CC: [id number] DICTATION DATE: 07/30/20 1636 HOTEL CONTROLLER: 07/30/202008 DEP CLI 07/29/20 [place] [id number] [place] [id number]
[~2020-07-29 08:56] MED LIST: AMIODARONE HCL200 MG PO; ATIVAN1 MG PO; CARTIA XT120 MG PO; HYDRALAZINE HCL50 MG PO; HYDROCHLOROTHIA25 MG PO; METOPROLOL TART50 MG NG; OXYBUTYNIN CHLOR5 MG PO; PREDNISONE10 MG PO; PRINIVIL20 MG PO; PROCARDIA10 MG PO
== END | disposition home or self-care (01) ==
LOC: D.HCCECHO 08:56
PROVIDERS: ATTEND Internal Medicine Interventional Cardiology
DX: I47.1 Supraventricular tachycardia (principal)